=== PATIENT | female | born 1960 | race Two or more races ===

== ENCOUNTER 2021-03-24 08:45 | Outpatient (REF) | payer OTHER, SELFPAY ==
--- NOTE | ~2021-03-24 | US_ITS ---
EXAMINATION: US THYROID CLINICAL INFORMATION: Nontoxic multinodular goiter. Follow up nodules. COMPARISON: None TECHNIQUE: Linear transducer grayscale and color Doppler examination with attention to the region of the thyroid. FINDINGS: SIZE: Measurements of the thyroid lobes and nodules are given in sagittal, anteroposterior and transverse dimensions respectively. Right Thyroid Lobe: 4.2 x 1.9 x 1.5 cm, volume 6.3 mL. Previously it measured 4.8 x 1.9 x 1.5 cm and volume 7.3 mL. Parenchyma: The gland echotexture is homogeneous. Thyroid vascularity is normal. Left Thyroid Lobe: 4.3 x 1.7 x 1.4 cm, volume 5.4 mL. Previously it measured 4.7 x 1.7 x 1.5 cm and volume 6.2 mL. Parenchyma: The gland echotexture is homogeneous. Thyroid vascularity is normal. Isthmus: 0.2 cm in maximum AP dimension. Estimated total number of nodules greater than or equal to 1 cm: 2. Conference Assistant nodules are described as follows: 1. Location: Upper pole. Previously measured 1.1 x 0.5 x 0.6 cm and volume 0.17 mL. Size: 1.1 x 0.6 x 0.4 cm, volume 0.15 mL. Nodule characteristics: Composition: Solid (2). Echogenicity: Hypoechoic Shape: Wider Margins: Smooth (0). Echogenic Foci: None (0). ACR TI-RADS total points: 4 ACR TI-RADS category: 4 2. Location: Right midpole. Size: 0.4 x 0.5 x 0.3 cm, volume 0.04 mL. Previously it measured 0.4 x 0.3 x 0.5 cm and volume 0.03 mL. Nodule characteristics: Composition: Solid (2). Echogenicity: Isoechoic (1). Shape: Wider Margins: Smooth (0). Echogenic Foci: None (0). ACR TI-RADS total points: 3 ACR TI-RADS category: 3 3. Location: Right midpole. Size: 0.4 x 0.3 x 0.3 cm, volume 0.02 mL. Nodule characteristics: Composition: Solid/almost completely solid (2). Echogenicity: Isoechoic (1). Shape: Wider Margins: Smooth (0). Echogenic Foci: None (0). ACR TI-RADS total points: 3 ACR TI-RADS category: 3 4. Location: Right lower pole. Size: 0.4 x 0.4 x 0.3 cm, volume 0.03 mL. Previously it measured 0.5 x 0.3 x 0.3 cm and volume 0.02 mL. Nodule characteristics: Composition: mostly solid (2). Echogenicity: Isoechoic (1). Shape: Wider Margins: Smooth (0). Echogenic Foci: None (0). ACR TI-RADS total points: 3 ACR TI-RADS category: 3 There is a small nodule in the left midpole measuring 1.5 cm with total points of 3 and TI-RADS category 3. NODES: No lymphadenopathy is seen in the tissue surrounding the thyroid gland. US/US thyroid IMPRESSION: Stable multinodular goiter with 1 cm and plus nodules are stable. Continued follow-up is recommended. ACR TI-RADS RECOMMENDATION REFERENCE: Ultrasound-guided fine-needle aspiration, followup ultrasound, no further follow up. * TR1 (0 point) and TR 2 (2 points): No FNA or follow up * TR3 (3 points): FNA if more than or equal to 2.5 cm in maximum dimension, followup ultrasound in 1, 3 and 5 years if 1.5 to 2.4 cm in maximum dimension. * TR4 (4-6 points): FNA if more than or equal to 1.5 cm in maximum dimension, followup ultrasound in 1, 2, 3 and 5 years if 1 to 1.4 cm in maximum dimension. * TR5 (more than or equal to 7 points): FNA if more than or equal to 1 cm in maximum dimension, followup ultrasound every year for 5 years if 0.5 to 0.9 cm in maximum dimension. * TR3, TR4 or TR5 nodules that are below the size threshold for follow up receive no follow up.
== END 2021-03-24 08:46 | disposition home or self-care (01) ==
LOC: HO.US 08:45
PROVIDERS: PCP Internal Medicine; Visit Provider Internal Medicine Endocrinology, Diabetes & Metabolism
DX: E04.2 Nontoxic multinodular goiter (principal)
CPT/HCPCS: 76536

== ENCOUNTER 2021-04-27 08:48 | Outpatient (REF) | payer OTHER, SELFPAY ==
--- NOTE | ~2021-04-27 | MM_ITS ---
EXAMINATION: MM SCREENING DIGITAL BREAST TOMOSYNTHESIS, BILATERAL CLINICAL INFORMATION: Screening. Asymptomatic. The lifetime risk of breast cancer based on the Tyrer-Cuzick Model is 6.4%. COMPARISON: Mammography: July 13, 2017 TECHNIQUE: Digital breast tomosynthesis is performed in both the craniocaudal and mediolateral oblique views along with computer-aided detection (CAD). Synthesized 2D images are generated from the tomosynthesis. FINDINGS: There are scattered areas of fibroglandular density (ACR BI-RADS breast composition Category b). There are no significant masses, abnormal calcifications, or other abnormalities. MM/MM tomosynthesis screening BI IMPRESSION: There are no significant changes from prior study. ASSESSMENT: BI-RADS 1: Negative RECOMMENDATION: Routine annual mammography screening. This patient's information was entered into a reminder system with a target due date for their next mammogram.
== END 2021-04-27 08:49 | disposition home or self-care (01) ==
LOC: HO.MAMMO 08:48
PROVIDERS: PCP Internal Medicine; Visit Provider Internal Medicine
DX: Z12.31 Encounter for screening mammogram for malignant neoplasm of breast (principal)
CPT/HCPCS: 77063; 77067

== ENCOUNTER → 2021-05-11 08:40 | Outpatient (BNVA) | payer OTHER, SELFPAY | PROVIDERS: PCP Internal Medicine; Visit Provider Anesthesiology | DX: M47.814 Spondylosis without myelopathy or radiculopathy, thoracic region (principal); M81.0 Age-related osteoporosis without current pathological fracture; S22.050D Wedge compression fracture of T5-T6 vertebra, subsequent encounter for fracture with routine healing | CPT/HCPCS: 99202 ==

== ENCOUNTER 2021-05-21 08:11 | Outpatient (REF) | payer OTHER, SELFPAY ==
--- NOTE | ~2021-05-21 | MM_ITS ---
EXAMINATION: BONE DENSITOMETRY CLINICAL INDICATION: Wedge compression fracture of T5-T6 vertebra. COMPARISON: This is the patient's baseline examination. TECHNIQUE: Using a [employer] DXA System (software version: 13.1) manufactured by [employer], dual-energy x-ray absorptiometry was performed of the lumbar spine and left hip. The images are of good technical quality. Summary results are attached. FINDINGS: AP SPINE L1-L4: BMD 0.572 g/cm2, Z-score -3.4, T-score -5.1, osteoporosis. LEFT FEMUR, NECK: BMD 0.532 g/cm2, Z-score -2.1, T-score -3.6, osteoporosis. LEFT FEMUR, TOTAL: BMD 0.500 g/cm2, Z-score -2.7, T-score -4.0, osteoporosis. IDENTIFIED RISK FACTORS: Early menopause, family history (parent hip fracture), history of fracture (adult), secondary osteoporosis. HISTORY OF FRACTURE: Spine by patient history. MEDICATIONS: Vitamin D. MM/XR DEXA axial skeleton IMPRESSION: 1. DIAGNOSIS: Osteoporosis based on the lowest T-score value of -5.1 in the lumbar spine applying World Health Organization criteria. 2. 10-YEAR FRACTURE RISK PREDICTION, FRAX: Major osteoporotic fracture (clinical spine, forearm, hip or shoulder) 29.1%. Hip fracture 8.3%. 3. Treatment Recommendations: NOF guidelines recommend consideration for treatment in postmenopausal women and men age 50 and older presenting with the following: -A hip or vertebral (clinical or morphometric) fracture. -T-score less than or equal to -2.5 at the femoral neck or spine after appropriate evaluation to exclude secondary causes. -Low bone mass at the hip or spine and a 10-year fracture probability by FRAX of greater than or equal to 3% for hip fracture or greater than or equal to 20% for major osteoporotic fracture based on the [place] adapted WHO algorithm. 4. Other Recommendations: All treatment decisions require clinical judgment and consideration of individual patient factors, including patient preferences, comorbidities, previous drug use, risk factors not captured in the FRAX model (e.g. frailty, falls, vitamin D deficiency, increased bone turnover, interval significant decline in bone density) and possible under or overestimation of fracture risk by FRAX. Additional medical evaluation for secondary cause of low bone mineral density may be appropriate. FUTURE SCAN RECOMMENDATION: People with diagnosed cases of osteoporosis or at high risk for fracture should have regular bone mineral density tests. For patients eligible for Medicare, routine testing is allowed once every 2 years. The testing frequency can be increased to one year for patients who have rapidly progressing disease, those who are receiving or discontinuing medical therapy to restore bone mass, or have additional risk factors.
== END 2021-05-21 08:12 | disposition home or self-care (01) ==
LOC: HO.MAMMO 08:11
PROVIDERS: Visit Provider Advanced Practice Midwife
DX: Z13.820 Encounter for screening for osteoporosis (principal); Z78.0 Asymptomatic menopausal state; S22.050D Wedge compression fracture of T5-T6 vertebra, subsequent encounter for fracture with routine healing
CPT/HCPCS: 77080

== ENCOUNTER 2021-05-21 09:00 | Outpatient (RCR) | payer OTHER, SELFPAY ==
--- NOTE | 2021-04-30 11:54 | MHC.PT.EP ---
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 Jonathan is a pleasant 60 yo female who arrives with T6 compression fracture and resultant muscular length and strength and imbalances. Impairments include decreased shoudler and thoracic spine ROM, decreased core and shoulder strength, altered posture and positioning, increased soft tissue tenderness. Functional limitations include decreased tolerance to lifting, bending, reaching, twisting and carrying. She also reports decreased ability to perform homemaking and self care tasks, decreased abiltiy to perform community and recreational tasks. She is a good candidate for PT to address deficits and return to PLOF. Frequency and Duration: The patient will be seen 2 x week for 4 weeks Short Term Goals: Initiate HEP and promote self management of symptoms in 2 visits Nursing Home Goals: Full, pain free thoracic ROM in 5 weeks Full UE strength, pain free in 5 weeks To perform computer and work tasks without restriction and pain no greater than 2/10 in [address] at minimum of 5# into cabinet at shoulder height in 5 weeks [ End ] Treatment Plan: Modalities to reduce pain, spasms and effusion. Manual therapy to restore motion and function. Therapeutic exercise to improve strength and flexibility. Neuromuscular re-education for posture and balance. Therapeutic activities to return to functional activities of daily living. Electronically signed by: Brooke Quiroz PT Please sign and return to therapist. Thank you for your referral.
--- NOTE | 2021-06-19 11:49 | MHC.PT.DC ---
[facility] [place] Office [place] Office [place] Office [address]ilio Bender [address] [phone] F: [phone] F: [phone] F: [phone] F: [phone] Physical Therapy Discharge Report Diagnosis: COMPRESSION FRACTURE OF T6 Date of Surgery: NA Date of Evaluation: 04/28/21 Date of Discharge: 05/27/21 Treatments to Date: 7 Cancellations to Date: 0 No Shows to Date: 0 Discharge Status: Discharge Summary: Sunny had progressed well with PT and was reporting decrease in pain and improved function. She cancelled her last several visits due to unrelated issues but has a home program to continue with until she is ready to return to therapy. Electronically signed by: Shelbie Eduardo PT, DPT Please sign and return to therapist. Thank you for your referral.
== END 2021-06-19 11:52 | disposition home or self-care (01) ==
LOC: HO.PT 09:00
PROVIDERS: PCP Internal Medicine; Visit Provider Internal Medicine
DX: S22.050D Wedge compression fracture of T5-T6 vertebra, subsequent encounter for fracture with routine healing (principal)
CPT/HCPCS: 97110; 97112; 97161; 97162; 97530

== ENCOUNTER 2021-05-25 09:07 | Outpatient (REF) | payer OTHER, SELFPAY ==
--- NOTE | ~2021-05-25 | MR_ITS ---
EXAMINATION: MR THORACIC SPINE WITHOUT CONTRAST CLINICAL INFORMATION: Spondylosis without myelopathy or radiculopathy. COMPARISON: No relevant prior imaging. TECHNIQUE: MRI of the thoracic spine was obtained using routine sequences without contrast. FINDINGS: There is some bone marrow edema associated with a compression fracture of the T5 vertebral body, which is uncertain on the basis of this examination. There is impaction upper endplate with 100% loss of vertebral body height anteriorly causing focal kyphotic angulation of the midthoracic spine. There is also buckling with retropulsion of posterior cortex at this level causing abutment and flattening along the ventral surface of the thoracic cord. Although there is no overt cord compression there are questionable intramedullary signal changes within the cord at this level. Although only partially included within the [id number] of this examination there is also a chronic appearing upper L3 endplate disc herniation. Vertebral body heights are otherwise preserved. There is disc desiccation at multiple levels without substantial loss of intervertebral disc height. Limited visualization of intrathoracic anatomy reveals no abnormal finding. No paraspinal soft tissue mass or collection. MR/MR thoracic spine wo con IMPRESSION: There is bone marrow edema associated with a compression fracture of the T5 vertebral body. The age of this fracture is difficult to accurately determine on the basis of this examination. There is 100% vertebral height loss anteriorly and buckling with retropulsion of posterior cortex causing abutment on the ventral surface of the thoracic cord. Although there is no overt cord compression, there are questionable intramedullary signal changes within the ventral cord at this level.
== END 2021-05-25 09:08 | disposition home or self-care (01) ==
LOC: HO.MRI 09:07
PROVIDERS: Visit Provider Anesthesiology
DX: M47.814 Spondylosis without myelopathy or radiculopathy, thoracic region (principal); S22.050A Wedge compression fracture of T5-T6 vertebra, initial encounter for closed fracture; M81.0 Age-related osteoporosis without current pathological fracture
CPT/HCPCS: 72146

== ENCOUNTER → 2021-06-01 08:47 | Outpatient (BNVA) | payer OTHER, SELFPAY | PROVIDERS: PCP Internal Medicine; Visit Provider Anesthesiology | DX: S22.050A Wedge compression fracture of T5-T6 vertebra, initial encounter for closed fracture (principal); X58.XXXA Exposure to other specified factors, initial encounter; Y93.9 Activity, unspecified; Y92.9 Unspecified place or not applicable; Y99.8 Other external cause status; M81.0 Age-related osteoporosis without current pathological fracture; M47.814 Spondylosis without myelopathy or radiculopathy, thoracic region | CPT/HCPCS: 99212 ==

== ENCOUNTER 2021-06-17 07:40 | Outpatient (REF) | payer OTHER, SELFPAY ==
[2021-06-17 09:42] LABS: Alanine Aminotransferase 12 U/L (0-31); Albumin Level 4.4 g/dL (3.5-5.0); Alkaline Phosphatase 105 U/L (39-117); Anion Gap 10 (12-20); Aspartate Amino Transferase 26 U/L (5-31); Bilirubin Total 0.3 mg/dL (0.0-1.0); Blood Urea Nitrogen 11 mg/dL (9-16); Calcium 9.4 mg/dL (8.4-10.2); Carbon Dioxide 28 mmol/L (22-29); Chloride 105 mmol/L (96-108); Estimated Glomerular Filt Rate > 60; Glucose Random 82 mg/dL (60-115); Phosphorus 4.2 mg/dL (2.7-4.5); Potassium 4.2 mmol/L (3.3-5.1); Sodium 139 mmol/L (135-145); Total Protein 7.4 g/dL (6.5-8.0)
[2021-06-17 09:56] LABS: Free T4 (Free Thyroxine) 1.09 ng/dL (0.71-1.85); Thyroid Stimulating Hormone 0.79 uIU/mL (0.32-4.0); Vitamin D 25-OH Total 19.5 ng/mL (>30)
[2021-06-18 14:30] LABS: Prot Elec - Albumin 4.4 g/dL (3.8-4.8); Prot Elec - Alpha1 0.4 g/dL (0.2-0.3); Prot Elec - Alpha2 0.8 g/dL (0.5-0.9); Prot Elec - Beta 1 0.5 g/dL (0.4-0.6); Prot Elec - Beta 2 0.4 g/dL (0.2-0.5); Prot Elec - Gamma 1.2 g/dL (0.8-1.7); Prot Elec - Total Protein 7.6 g/dL (6.1-8.1)
[2021-06-18 14:51] LABS: Calcium, Ionized 5.1 mg/dL (4.8-5.6)
[2021-06-18 15:41] LABS: Calcium (PTHI) 9.6 mg/dL (8.6-10.4); PTHI 39 pg/mL (14-64)
[2021-06-19 10:22] LABS: Alkaline Phosphatase Bone 26.2 mcg/L (5.6-29.0)
== END 2021-06-17 07:41 | disposition home or self-care (01) ==
LOC: HO.LAB 07:40
PROVIDERS: PCP Internal Medicine; Visit Provider Internal Medicine
DX: E04.2 Nontoxic multinodular goiter (principal); M81.0 Age-related osteoporosis without current pathological fracture; E55.9 Vitamin D deficiency, unspecified
CPT/HCPCS: 36415; 80053; 82306; 82330; 83970; 84075; 84100; 84165; 84439; 84443; 99212

== ENCOUNTER 2021-06-24 09:05 | Outpatient (REF) | payer OTHER, SELFPAY ==
[2021-06-24 10:20] LABS: Creatinine, mg/dL 34.39
[2021-06-24 10:58] LABS: Creatinine, 24Hr Urine 0.9 G/Day (1.0-2.0); Total Volume 24 Hour Urine 2525 mL
[2021-06-28 18:11] LABS: Calcium, 24 Hr Urine 53 mg/24 h; Calcium/Creatinine Ratio 55 mg/g creat (30-275); Creatinine 24Hr Urine 0.96 g/24 h (0.50-2.15)
== END 2021-06-24 09:06 | disposition home or self-care (01) ==
LOC: HO.LNP 09:05
PROVIDERS: Visit Provider Internal Medicine
DX: M81.0 Age-related osteoporosis without current pathological fracture (principal)
CPT/HCPCS: 82340; 82570

== ENCOUNTER → 2021-08-10 08:46 | Outpatient (BNVA) | payer OTHER, SELFPAY | PROVIDERS: PCP Internal Medicine; Visit Provider Internal Medicine ==

== ENCOUNTER 2021-11-09 12:12 | Outpatient (REF) | payer OTHER, SELFPAY ==
[2021-11-09 13:39] LABS: Hematocrit 37.4 % (37.0-47.0); Hemoglobin 12.5 g/dl (12.0-16.0); Mean Corpuscular HGB Conc 33.4 g/dl (31.0-35.0); Mean Corpuscular Hemoglobin 30.3 pg (27.0-33.0); Mean Corpuscular Volume 90.8 fL (80.0-98.0); Mean Platelet Volume 10.8 fL (9.4-12.3); Platelet Count 306 X10*3/uL (160-400); Red Blood Count 4.12 X10*6/uL (4.20-5.50); Red Cell Distribution Width 13.1 % (11.0-16.0); White Blood Count 5.1 X10*3/uL (4.8-10.8)
[2021-11-09 14:10] LABS: Alanine Aminotransferase 14 U/L (0-31); Albumin Level 4.4 g/dL (3.5-5.0); Alkaline Phosphatase 83 U/L (39-117); Aspartate Amino Transferase 19 U/L (5-31); Bilirubin Direct 0.2 mg/dL (0.0-0.5); Bilirubin Total 0.4 mg/dL (0.0-1.0); Lipase 18 U/L (8-78); Total Protein 7.5 g/dL (6.5-8.0)
[2021-11-09 14:26] LABS: Vitamin D 25-OH Total 15.8 ng/mL (>30)
[2021-11-10 13:27] LABS: Calcium (PTHI) 9.3 mg/dL (8.6-10.4); PTHI 55 pg/mL (16-77)
[2021-11-12 14:51] LABS: Immunoglobulin A 306 mg/dL (47-310)
[2021-11-12 21:17] LABS: Transglutaminase IgA <1.0 U/mL
== END 2021-11-09 12:13 | disposition home or self-care (01) ==
LOC: HO.LAB 12:12
PROVIDERS: Absent Provider Internal Medicine; PCP Internal Medicine; Visit Provider Internal Medicine Gastroenterology
DX: E55.9 Vitamin D deficiency, unspecified (principal); R10.84 Generalized abdominal pain
CPT/HCPCS: 36415; 80076; 82306; 82784; 83690; 83970; 85027; 86364

== ENCOUNTER 2021-12-01 08:24 | Outpatient (REF) | payer OTHER, SELFPAY ==
--- NOTE | ~2021-12-01 | US_ITS ---
EXAMINATION: US ABDOMEN COMPLETE CLINICAL INFORMATION: Abdominal pain. COMPARISON: Ultrasound abdomen complete 03/01/2018. TECHNIQUE: Real-time imaging of the abdominal viscera. FINDINGS: PANCREAS: Normal. ABDOMINAL AORTA: The proximal, mid, and distal segments are normal in caliber. INFERIOR VENA CAVA: Visualized portions are normal. LIVER: Normal. The liver is normal in size. The liver contour is normal. Parenchymal echogenicity is normal. No focal hepatic lesion. There is no intrahepatic biliary duct dilatation seen. GALLBLADDER: The gallbladder is physiologically distended without evidence of stones, sludge, polyps, wall thickening or pericholecystic fluid. COMMON BILE DUCT: Normal in caliber measuring 0.5 cm in diameter. RIGHT KIDNEY: There is an anechoic 1.9 x 1.6 x 1.8 cm simple cyst at the lower pole. No hydronephrosis or renal calculi. The kidney measures 9.7 cm in maximum dimension. LEFT KIDNEY: Normal. No hydronephrosis. No renal calculi or focal parenchymal lesions. The kidney measures 10.3 cm in maximum dimension. SPLEEN: Normal. The spleen measures 8.0 cm in maximum dimension. FREE FLUID: None. US/US abdomen complete IMPRESSION: Right simple renal cyst, otherwise essentially unremarkable abdominal ultrasound.
== END 2021-12-01 08:25 | disposition home or self-care (01) ==
LOC: HO.US 08:24
PROVIDERS: Visit Provider Internal Medicine
DX: R10.84 Generalized abdominal pain (principal)
CPT/HCPCS: 76700

== ENCOUNTER 2022-01-19 14:18 | Emergency (ER) | payer OTHER, SELFPAY ==
--- NOTE | ~2022-01-19 | CT_ITS ---
EXAMINATION: CT ABDOMEN AND PELVIS WITHOUT CONTRAST CLINICAL INFORMATION: Right lower quadrant/suprapubic tender to touch. History of constipation and nausea. COMPARISON: Ultrasound abdomen 12/01/2021. TECHNIQUE: Multidetector volumetric imaging was performed from the superior aspect of the liver through the pubic symphysis. Sagittal and coronal reformatted images were obtained on the technologist's workstation. This CT examination was performed using dose optimization techniques as appropriate, variously including the following: *Automated exposure control *Adjustment of mA and/or kV according to patient size (this includes techniques or standardized protocols for targeted exams where dose is matched to indication/reason for exam; i.e. extremities or head) *Use of iterative reconstruction technique DLP: 277 mGy-cm FINDINGS: LUNG BASES: There is bibasilar atelectasis. Heart size is normal. LIVER, GALLBLADDER, AND BILIARY TREE: The liver is normal in size, shape, and attenuation. No focal hepatic lesion or biliary ductal dilatation is present. The gallbladder is unremarkable with no evidence of radiopaque gallstones, gallbladder wall thickening, or obvious pericholecystic inflammatory changes. PANCREAS: Unremarkable. SPLEEN: Unremarkable. ADRENAL GLANDS: Unremarkable. KIDNEYS AND URETERS: The kidneys are normal in size, shape, and attenuation. No hydronephrosis, hydroureter, or calculi seen. No perinephric stranding. There is a 1.7 cm hypodensity lower pole right hepatic lobe BLADDER: The bladder is totally decompressed. GASTROINTESTINAL TRACT: There is scattered stool, diverticuli and gas seen throughout the colon without significant distention. The small bowel loops are normal caliber. Appendix is not visualized. No free air or free fluid seen. ABDOMINAL WALL: No significant hernia is appreciated. LYMPH NODES: Normal. VASCULAR: Unremarkable. PELVIC VISCERA: The uterus is small and retroverted. No focal adnexal lesion seen. No abnormal pelvic or inguinal lymph nodes. There is mild sigmoid wall thickening is likely scattered diverticuli OSSEOUS STRUCTURES: Mild superior endplate deformities L4, L3 vertebra. There is mild osteopenia.. CT/CT abdomen pelvis wo con IMPRESSION: Mild constipation. No obstruction. Appendix is not seen with certainty. No radiopaque urolith or hydronephrosis. Fleischner guidelines were followed.
[2022-01-19 14:28] VITALS: BP 136/73; PULSE 72; RESP 19; TEMP 36.9; O2SAT 97; BMI 19.8
[2022-01-19 14:46] LABS: Basophils Percent Auto 0.5 % (0-2); Eosinophils Absolute Auto 0.1 X10*3/uL (0.0-0.4); Eosinophils Percent Auto 1.5 % (0-4); Hematocrit 35.3 % (37.0-47.0); Hemoglobin 11.9 g/dl (12.0-16.0); Imm Gran Abs Auto 0.02 X10*3/uL (0.00-0.03); Imm Gran Pct Auto 0.2 % (0.0-0.4); Lymphocytes Absolute Auto 1.9 X10*3/uL (1.2-4.9); Lymphocytes Percent Auto 22.4 % (20-40); MANUAL DIFF FLAG NO; Mean Corpuscular HGB Conc 33.7 g/dl (31.0-35.0); Mean Corpuscular Hemoglobin 30.2 pg (27.0-33.0); Mean Corpuscular Volume 89.6 fL (80.0-98.0); Mean Platelet Volume 10.5 fL (9.4-12.3); Monocytes Absolute Auto 0.5 X10*3/uL (0.1-1.2); Neutrophils Absolute Auto 5.7 x10*3/uL (2.0-8.3); Neutrophils Percent Auto 69.4 % (45-73); Platelet Count 260 X10*3/uL (160-400); Red Blood Count 3.94 X10*6/uL (4.20-5.50); Red Cell Distribution Width 11.9 % (11.0-16.0); White Blood Count 8.3 X10*3/uL (4.8-10.8)
[2022-01-19 14:48] LABS: Appearance Urine HAZY; Color Urine STRAW; Glucose Urine UA NEG (NEG); Leukocyte Esterase Urine NEG (NEG); Nitrite Urine NEG (NEG); Specific Gravity - Urine <= 1.005 (1.005-1.025); UACC Culture Trigger NO; Urine Blood 3+ (NEG); Urine Ketones NEG (NEG); Urine Protein NEG (NEG-TRACE)
[2022-01-19 14:54] LABS: Renal Epithelial Cells Urine TRACE /LPF; Squamous Epithelial Cell Urine TRACE /LPF; WBC Urine 0 /HPF (0-4)
[2022-01-19 15:01] LABS: Anion Gap 11 (12-20); Blood Urea Nitrogen 20 mg/dL (9-16); Calcium 8.9 mg/dL (8.4-10.2); Carbon Dioxide 24 mmol/L (22-29); Chloride 106 mmol/L (96-108); Creatinine Clr Calc Pharmacy 46.8; Estimated Glomerular Filt Rate 59; Glucose Random 97 mg/dL (60-115); Potassium 4.1 mmol/L (3.3-5.1); Sodium 137 mmol/L (135-145)
[2022-01-19 21:34] LABS: Alanine Aminotransferase 9 U/L (0-31); Albumin Level 4.2 g/dL (3.5-5.0); Alkaline Phosphatase 106 U/L (39-117); Aspartate Amino Transferase 17 U/L (5-31); Bilirubin Direct < 0.2 mg/dL (0.0-0.5); Bilirubin Total 0.2 mg/dL (0.0-1.0); Lipase 19 U/L (8-78); Magnesium 2.1 mg/dL (1.6-2.6); Total Protein 7.2 g/dL (6.5-8.0)
--- NOTE | 2022-01-19 22:04 | ED.GENADULT ---
HPI - General Adult General Chief complaint: General Medical Stated complaint: low back pain, abd pain, leg pain Time Seen by Provider: 01/19/22 20:13 Source: patient Mode of arrival: ambulatory History of Present Illness HPI narrative: 61-year-old female with no significant past medical history presenting to the ED complaining of bilateral low back pain radiating to abdomen and down left lower extremity x1 week. Also reports nausea & constipation without BM x2 days, and decreased flatus. Denies fever, chills, vomiting, diarrhea, numbness, tingling, weakness, urinary incontinence/retention, back injury/trauma or fall Onset (ago): week(s) Related Data Home Medications Medication Instructions Recorded Confirmed acetaminophen 325 mg tablet 325 mg PO QID PRN 05/11/21 08/10/21 loratadine 10 mg tablet (Claritin) 10 mg PO DAILY PRN 08/10/21 08/10/21 pantoprazole 20 mg tablet,delayed 20 mg PO DAILY PRN 08/10/21 08/10/21 release Previous Rx's Medication Instructions Recorded calcium cit 250 mg-ergocalciferol 1 tab PO DAILY 30 days #30 tabs 08/10/21 (vit D2) 2.5 mcg (100 unit) tablet (Oskar-Citrate) cholecalciferol (vitamin D3) 1,250 1,250 mcg PO QWEEK 8 weeks #8 caps 08/10/21 mcg (50,000 unit) capsule cholecalciferol (vitamin D3) 50 50 mcg PO DAILY 30 days #30 caps 08/10/21 mcg (2,000 unit) capsule acetaminophen 500 mg tablet 500 mg PO Q6H PRN fever or pain 01/19/22 (Tylenol Extra Strength) #14 tabs cyclobenzaprine 5 mg tablet 5 mg PO Q8H PRN pain (scale score 01/19/22 7-10) 5 days #14 tabs lidocaine 5 % topical patch 1 patch topical DAILY PRN pain #30 01/19/22 (Lidoderm) ea naproxen 500 mg tablet 500 mg PO BID PRN pain 10 days #20 01/19/22 tabs polyethylene glycol 3350 17 gram 17 g PO DAILY PRN constipation 01/19/22 oral powder packet (Miralax) #100 ea Allergies Allergy/AdvReac Type Severity Reaction Status Date / Time No Known Allergies Allergy Verified 08/10/21 11:09 Review of Systems Review of Systems: Constitutional: No Fever, No Chills, No Fatigue, No Malaise ENT/Mouth: No Ear Pain, No Nasal Congestion, No sore throat, No Rhinorrhea, No Swallowing Difficulty Eyes: No Eye Pain, No Swelling, No Redness Cardiovascular: No Chest Pain, No SOB, No Edema, No Palpitations Respiratory: No Cough, No Sputum, No Dyspnea Gastrointestinal: + Nausea, No Vomiting, No Diarrhea, + Constipation, + Abdominal pain Genitourinary: No Dysuria, No Urinary Frequency, No Hematuria, No Urinary Incontinence/retention, +Flank Pain, No Urinary Flow Changes, No Hesitancy Musculoskeletal: + joint pain, No Myalgias, No Joint Swelling Skin: No Skin Lesions, No rash Neuro: No Weakness, No Numbness, No Paresthesias, No Dizziness, No Headache Yes all other systems are reviewed and are negative [facility] Past Medical History Attestation statement: The following information was validated with the patient. Medical History Spondylosis of thoracic spine Surgical History Hx of section Family History Family History Father Pulmonary disease Mother No known health problems Fracture of bone due to accidental fall Social History Social History Alcohol intake: current Alcohol intake frequency: does not drink Patient Tobacco Use Status: Never used Tobacco Advance Directives: No Physical Exam ED Vital Signs: Vital Signs - 24 hr 01/19/22 14:28 Temperature 98.4 F Pulse Rate 72 Respiratory Rate 19 Blood Pressure 136/73 Pulse Oximetry 97 Oxygen Delivery Method Room Air BMI result Body Mass Index 19.8 Const General: cooperative, healthy appearing, no acute distress, alert and awake Orientation/consciousness: patient oriented x3 Limitations: no limitations HENMT Head: Yes normal to inspection and Yes atraumatic Ears: hearing grossly normal bilaterally General nose exam: Normal external nose present Face and sinus: Yes normal facial exam Eyes General: appearance normal, both eyes and all related structures EOM: EOMs intact bilaterally Neck Neck: Yes normal visual inspection and Yes no meningeal signs Resp Effort & Inspection: normal respiratory effort and no respiratory distress Auscultation: clear to auscultation bilaterally Cardio Rate: regular rate Heart sounds: S1 normal heart sound present and S2 normal heart sound present GI Inspection: Yes normal to inspection Palpation (GI): Soft to palpation, Tenderness to palpation present (GI) in the RLQ; with no rebound tenderness, no guarding and not rigid General: Yes no CVA tenderness Back/Spine/Pelvis Other: No midline thoracic/lumbar spinous tenderness/step-off or deformity. + bilateral lower lumbar MSK/upper buttock tenderness to palpation reproducing subjective complaint Back: no CVA tenderness Skin Rashes: no rashes Wounds: no wounds Neuro Other: Strength intact throughout. No saddle anesthesia. Sensation intact to light touch. Neurovascular intact distally General: patient oriented x3, gait normal, tone normal, moves all extremities, no meningeal signs, no focal motor deficits and CN's II-XI intact bilaterally Gait exam (Neuro): Normal gait present Motor exam (neuro): 5/5 motor strength present throughout Extrem General: Yes normal to inspection, Yes no pedal edema and Yes no calf tenderness Course Course Course Narrative: This patient was evaluated during a time of global shortage of iodinated contrast media. Based on guidance from [employer], best practices, and local institutional approaches an alternative path for evaluating and managing the patient have been employed in order to provide optimal care during this shortage. -2224--no leukocytosis. H&H stable. BUN mildly elevated, labs otherwise unremarkable -UA with RBCs/not infected CT abdomen pelvis wo con IMPRESSION: Mild constipation. No obstruction. Appendix is not seen with certainty. ? No radiopaque urolith or hydronephrosis. ? Fleischner guidelines were followed. >> results discussed with patient with foreign language interpreter. Discussed this possibly could be appendicitis as is not seen with certainty on this noncontrast study. Of lower concern without leukocytosis/fever, however discussed worrisome signs and symptoms and strict return precautions and need to close follow-up with PCP/re-evaluation in a few days. Medical Decision Making MDM Narrative Medical decision making narrative: 61-year-old female with no significant past medical history presenting to the ED complaining of bilateral low back pain radiating to abdomen and down left lower extremity x1 week. Also reports nausea & constipation without BM x2 days, and decreased flatus. On exam vital signs stable, NAD, nontoxic appearing, abdomen soft with are acute tenderness, no rebound or guarding, bilateral MSK back tenderness also noted without red flag symptoms or midline spinous tenderness. Ambulating with steady gait. No CVA tenderness. Concern for constipation vs SBO vs appendicitis vs MSK back pain/strain/muscle spasming and sciatica vs UTI/pyelo or renal stone. Unlikely cauda equina/cord compression Plan: Labs, UA, CT abdomen/pelvis, re-evaluate Lab Data Result diagrams: 01/19/22 14:40 01/19/22 14:40 Labs: Lab Results 01/19/22 01/19/22 01/19/22 Range/Units 14:40 14:40 14:40 WBC 8.3 (4.8-10.8) X10*3/uL RBC 3.94 L (4.20-5.50) X10*6/uL Hgb 11.9 L (12.0-16.0) g/dl Hct 35.3 L (37.0-47.0) % MCV 89.6 (80.0-98.0) fL MCH 30.2 (27.0-33.0) pg MCHC 33.7 (31.0-35.0) g/dl RDW 11.9 (11.0-16.0) % Plt Count 260 (160-400) X10*3/uL MPV 10.5 (9.4-12.3) fL Immature Gran % (Auto) 0.2 (0.0-0.4) % Neut % (Auto) 69.4 (45-73) % Lymph % (Auto) 22.4 (20-40) % [place] % (Auto) 6.0 (2-11) % Eos % (Auto) 1.5 (0-4) % Baso % (Auto) 0.5 (0-2) % Lymph # (Auto) 1.9 (1.2-4.9) X10*3/uL [place] # (Auto) 0.5 (0.1-1.2) X10*3/uL Eos # (Auto) 0.1 (0.0-0.4) X10*3/uL Baso # (Auto) 0.0 (0.0-0.2) X10*3/uL Abs Immat Gran (auto) 0.02 (0.00-0.03) X10*3/uL Absolute Neuts (auto) 5.7 (2.0-8.3) x10*3/uL Absolute Nucleated RBC 0.000 (0.0-0.012) X10*3/uL Nucleated RBC % (auto) 0.0 (0.0-0.2) /100WBC Sodium 137 (135-145) mmol/L Potassium 4.1 (3.3-5.1) mmol/L Chloride 106 (96-108) mmol/L Carbon Dioxide 24 (22-29) mmol/L Anion Gap 11 L (12-20) BUN 20 H (9-16) mg/dL Creatinine 0.96 (0.5-1.4) mg/dL Estim Creat Clear Calc 46.8 Estimated GFR 59 Random Glucose 97 (60-115) mg/dL Calcium 8.9 (8.4-10.2) mg/dL Magnesium 2.1 (1.6-2.6) mg/dL Total Bilirubin 0.2 (0.0-1.0) mg/dL Direct Bilirubin < 0.2 (0.0-0.5) mg/dL AST 17 (5-31) U/L ALT 9 (0-31) U/L Alkaline Phosphatase 106 D (39-117) U/L Total Protein 7.2 (6.5-8.0) g/dL Albumin 4.2 (3.5-5.0) g/dL Lipase 19 (8-78) U/L Urine Color STRAW Urine Appearance HAZY Urine pH 7.0 (5.0-8.0) Ur Specific [place] <= 1.005 (1.005-1.025) Urine Protein NEG (NEG-TRACE) MG/DL Urine Glucose (UA) NEG (NEG) MG/DL Urine Ketones NEG (NEG) MG/DL Urine Blood 3+ H (NEG) Urine Nitrite NEG (NEG) Ur Leukocyte Esterase NEG (NEG) Urine RBC 5-9 H (0) /HPF Urine WBC 0 (0-4) /HPF Ur Squamous Epith Cells TRACE /LPF Ur Renal Epithelial Cell TRACE /LPF Urine Bacteria NONE /LPF Discharge Plan Discharge Clinical Impression: Back pain, Constipation Patient Disposition: Home, Self-Care Instructions: Constipation (ED), Back Pain (ED) Additional Instructions: Your blood work was reassuring. Her urine does have blood in it, have this monitored by her primary care doctor. Your CT scan shows some constipation, does not visualized your appendix with certainty, so if you develop constant worsening pain, fever, nausea or vomiting please return to the emergency department Not having a bowel movement in 48 hours please return to the emergency department. You need to start taking laxatives, MiraLax as needed and increase fluid intake in her diet Your pain is likely musculoskeletal Flexeril is a muscle relaxer, take at night as it makes you drowsy, do not drive, drink alcohol, or operate machinery while taking it Naproxen as an anti-inflammatory / pain medication, take with food Lidoderm patches are numbing patches, apply to painful area In addition take Tylenol at home If symptoms persist or worsen, pain becomes unbearable, you developed urinary retention or incontinence, or weakness return to the ED Grant an?lisis de quoc fue tranquilizador. Grant orina tiene quoc, papa que grant m?dico de atenci?n primaria lo controle. Grant tomograf?a computarizada muestra algo de estre?imiento, no visualiza grant ap?ndice con certeza, por lo que si desarrolla un empeoramiento elijah del dolor, fiebre, n?useas o v?mitos, regrese al departamento de emergencias. Si no gonzáles defecado en 48 horas, regrese al departamento de emergencias. Debe comenzar a cora laxantes, MiraLax seg?n sea necesario y aumentar la ingesta de l?quidos en grant dieta. Es probable que grant dolor sea musculoesquel?tania Flexeril es un relajante muscular, t?hortensia por la noche ya que te adormece, no conduzcas, bebas alcohol ni operes maquinaria mientras lo deangelo. Naproxeno [place] medicamento antiinflamatorio/analg?sico, t?cruz con alimentos Los parches de Lidoderm son parches anest?sicos, se aplican en el ?luiz dolorida Adem?s imani Tylenol en casa Si los s?ntomas persisten o empeoran, el dolor se vuelve insoportable, desarroll? retenci?n urinaria o incontinencia, o debilidad, regrese al servicio de urgencias. Prescriptions: New acetaminophen [Tylenol Extra Strength] 500 mg tablet 500 mg PO Q6H PRN (Reason: fever or pain) Qty: 14 0RF lidocaine [Lidoderm] 5 % adhesive patch,medicated 1 patch topical DAILY MDD remove after 12 hours PRN (Reason: pain) Qty: 30 0RF Rx Instructions: leave on most painful area for up to 12 hrs cyclobenzaprine 5 mg tablet 5 mg PO Q8H PRN (Reason: pain (scale score 7-10)) 5 Days Qty: 14 0RF naproxen 500 mg tablet 500 mg PO BID PRN (Reason: pain) 10 Days Qty: 20 0RF polyethylene glycol 3350 [Miralax] 17 gram powder in packet 17 g PO DAILY PRN (Reason: constipation) Qty: 100 0RF No Action acetaminophen 325 mg tablet 325 mg PO QID PRN loratadine [Claritin] 10 mg tablet 10 mg PO DAILY PRN pantoprazole 20 mg tablet,delayed release (DR/EC) 20 mg PO DAILY PRN cholecalciferol (vitamin D3) 50 mcg (2,000 unit) capsule 50 mcg PO DAILY 30 Days Qty: 30 11RF cholecalciferol (vitamin D3) 1,250 mcg (50,000 unit) capsule 1,250 mcg PO QWEEK 56 Days Qty: 8 0RF Oskar-Citrate 250 mg-2.5 mcg (100 unit) tablet 1 tab PO DAILY 30 Days Qty: 30 11RF Referrals: Isabel Dunlap MD [Primary Care Provider] - 3 days Print Language: Montenegrin
--- NOTE | 2022-01-19 23:16 | PC.NURSE ---
Reviewed discharge instructions. Pt verbalized understanding.
== END 2022-01-19 23:17 | disposition home or self-care (01) ==
PROVIDERS: Physician Assistant; Emergency Provider Internal Medicine; PCP Internal Medicine
DX: M54.50 Low back pain, unspecified (principal); K59.00 Constipation, unspecified
CPT/HCPCS: 36415; 74176; 80048; 80076; 81001; 83690; 83735; 85025; 99284

== ENCOUNTER 2022-02-11 08:43 | Outpatient (REF) | payer OTHER, SELFPAY ==
[2022-02-11 10:00] LABS: Alanine Aminotransferase 13 U/L (0-31); Albumin Level 4.2 g/dL (3.5-5.0); Alkaline Phosphatase 102 U/L (39-117); Anion Gap 13 (12-20); Aspartate Amino Transferase 20 U/L (5-31); Bilirubin Total 0.4 mg/dL (0.0-1.0); Blood Urea Nitrogen 15 mg/dL (9-16); Carbon Dioxide 26 mmol/L (22-29); Chloride 108 mmol/L (96-108); Estimated Glomerular Filt Rate > 60; Glucose Random 86 mg/dL (60-115); Phosphorus 4.5 mg/dL (2.7-4.5); Potassium 4.6 mmol/L (3.3-5.1); Sodium 142 mmol/L (135-145); Total Protein 7.1 g/dL (6.5-8.0)
[2022-02-11 10:20] LABS: Vitamin D 25-OH Total 23.7 ng/mL (>30)
[2022-02-12 13:07] LABS: Calcium (PTHI) 9.8 mg/dL (8.6-10.4); PTHI 44 pg/mL (16-77)
== END 2022-02-11 08:44 | disposition home or self-care (01) ==
LOC: HO.LAB 08:43
PROVIDERS: PCP Internal Medicine; Visit Provider Internal Medicine
DX: M81.0 Age-related osteoporosis without current pathological fracture (principal); E55.9 Vitamin D deficiency, unspecified
CPT/HCPCS: 36415; 80053; 82306; 83970; 84100

== ENCOUNTER → 2022-02-15 09:36 | Outpatient (BNVA) | payer OTHER, SELFPAY | PROVIDERS: PCP Internal Medicine; Visit Provider Internal Medicine | DX: M81.0 Age-related osteoporosis without current pathological fracture (principal); E04.2 Nontoxic multinodular goiter; E55.9 Vitamin D deficiency, unspecified; Z79.899 Other long term (current) drug therapy | CPT/HCPCS: 99212 ==

== ENCOUNTER 2022-07-10 09:43 | Outpatient (REF) | payer OTHER, SELFPAY ==
[2022-07-10 11:52] LABS: Alanine Aminotransferase 15 U/L (0-31); Albumin Level 4.4 g/dL (3.5-5.0); Alkaline Phosphatase 81 U/L (39-117); Anion Gap 14 (12-20); Aspartate Amino Transferase 22 U/L (5-31); Blood Urea Nitrogen 14 mg/dL (9-16); Calcium 9.1 mg/dL (8.4-10.2); Carbon Dioxide 25 mmol/L (22-29); Chloride 105 mmol/L (96-108); Estimated Glomerular Filt Rate > 60; Free T4 (Free Thyroxine) 1.06 ng/dL (0.71-1.85); Glucose Random 82 mg/dL (60-115); Phosphorus 3.7 mg/dL (2.7-4.5); Potassium 4.3 mmol/L (3.3-5.1); Sodium 140 mmol/L (135-145); Total Protein 7.5 g/dL (6.5-8.0); Vitamin D 25-OH Total 31.6 ng/mL (>30)
[2022-07-10 12:13] LABS: Bilirubin Total 0.7 mg/dL (0.0-1.0)
[2022-07-12 18:54] LABS: Transglutaminase Ab IgG <1.0 U/mL
[2022-07-13 09:48] LABS: Calcium (PTHI) 9.3 mg/dL (8.6-10.4); PTHI 61 pg/mL (16-77)
[2022-07-15 14:29] LABS: Endomysial IgA Antibody Negative (Negative)
== END 2022-07-10 09:44 | disposition home or self-care (01) ==
LOC: HO.LAB 09:43
PROVIDERS: PCP Internal Medicine; Visit Provider Internal Medicine
DX: M81.0 Age-related osteoporosis without current pathological fracture (principal); E04.2 Nontoxic multinodular goiter; E55.9 Vitamin D deficiency, unspecified
CPT/HCPCS: 36415; 80053; 82306; 83970; 84100; 84439; 84443; 86231; 86364

== ENCOUNTER 2022-10-28 13:41 | Outpatient (REF) | payer OTHER, SELFPAY ==
[2022-10-28 15:05] LABS: Alanine Aminotransferase 11 U/L (0-31); Albumin Level 4.4 g/dL (3.5-5.0); Alkaline Phosphatase 76 U/L (39-117); Anion Gap 14 (12-20); Aspartate Amino Transferase 19 U/L (5-31); Bilirubin Total 0.7 mg/dL (0.0-1.0); Blood Urea Nitrogen 11 mg/dL (9-16); Calcium 9.7 mg/dL (8.4-10.2); Carbon Dioxide 27 mmol/L (22-29); Chloride 104 mmol/L (96-108); Estimated Glomerular Filt Rate > 60; Glucose Random 77 mg/dL (60-115); Phosphorus 3.8 mg/dL (2.7-4.5); Potassium 4.4 mmol/L (3.3-5.1); Sodium 141 mmol/L (135-145); Total Protein 7.4 g/dL (6.5-8.0)
[2022-10-28 15:17] LABS: Free T4 (Free Thyroxine) 1.15 ng/dL (0.71-1.85); Vitamin D 25-OH Total 34.5 ng/mL (>30)
[2022-10-29 16:23] LABS: Calcium (PTHI) 7.1 mg/dL (8.6-10.4); PTHI 59 pg/mL (16-77)
[2022-11-02 15:14] LABS: Alkaline Phosphatase Bone 16.7 mcg/L (5.6-29.0)
== END 2022-10-28 13:42 | disposition home or self-care (01) ==
LOC: HO.LAB 13:41
PROVIDERS: PCP Internal Medicine; Visit Provider Internal Medicine
DX: M81.0 Age-related osteoporosis without current pathological fracture (principal); E04.2 Nontoxic multinodular goiter; E55.9 Vitamin D deficiency, unspecified
CPT/HCPCS: 36415; 80053; 82306; 83970; 84075; 84100; 84439; 84443

== ENCOUNTER 2022-11-01 07:58 | Outpatient (REF) | payer OTHER, SELFPAY ==
[2022-11-01 14:25] LABS: Alanine Aminotransferase 11 U/L (0-31); Albumin Level 4.5 g/dL (3.5-5.0); Alkaline Phosphatase 67 U/L (39-117); Anion Gap 15 (12-20); Aspartate Amino Transferase 21 U/L (5-31); Bilirubin Total 0.4 mg/dL (0.0-1.0); Blood Urea Nitrogen 10 mg/dL (9-16); Calcium 9.4 mg/dL (8.4-10.2); Carbon Dioxide 24 mmol/L (22-29); Chloride 105 mmol/L (96-108); Estimated Glomerular Filt Rate > 60; Glucose Random 75 mg/dL (60-115); Phosphorus 3.9 mg/dL (2.7-4.5); Sodium 139 mmol/L (135-145); Total Protein 7.1 g/dL (6.5-8.0)
[2022-11-02 16:13] LABS: Calcium (PTHI) 9.4 mg/dL (8.6-10.4); PTHI 45 pg/mL (16-77)
== END 2022-11-01 07:59 | disposition home or self-care (01) ==
LOC: HO.LAB 07:58
PROVIDERS: PCP Internal Medicine; Visit Provider Internal Medicine
DX: E04.2 Nontoxic multinodular goiter (principal); M81.0 Age-related osteoporosis without current pathological fracture; E55.9 Vitamin D deficiency, unspecified
CPT/HCPCS: 36415; 80053; 82306; 83970; 84100; 99212

== ENCOUNTER 2022-11-23 10:16 | Outpatient (REF) | payer OTHER, SELFPAY ==
--- NOTE | ~2022-11-23 | US_ITS ---
EXAMINATION: US THYROID CLINICAL INFORMATION: Nontoxic multinodular goiter. COMPARISON: Thyroid ultrasound 03/24/2021 and 04/07/2020. Ultrasound-guided thyroid biopsy 03/22/2019. TECHNIQUE: Linear transducer grayscale and color Doppler examination with attention to the region of the thyroid. FINDINGS: SIZE: Measurements of the thyroid lobes and nodules are given in sagittal, anteroposterior and transverse dimensions respectively. Right Thyroid Lobe: 4.8 x 1.9 x 1.9 cm, volume 8.9 mL. Previously 4.2 x 1.9 x 1.5 cm, volume 6.3 mL. Parenchyma: The gland echotexture is homogeneous. Thyroid vascularity is normal. Left Thyroid Lobe: 4.4 x 1.7 x 1.5 cm, volume 6.0 mL. Previously 4.3 x 1.7 x 1.4 cm, volume 5.4 mL. Parenchyma: The gland echotexture is homogeneous. Thyroid vascularity is normal. Isthmus: 0.2 cm in maximum AP dimension. Previously 0.2 cm. Estimated total number of nodules greater than or equal to 1 cm: 2. Lead Dental Assistant nodules are described as follows: 1. Location: Right upper pole. Size: 1.2 x 0.6 x 0.7 cm, volume 0.3 mL. Previously: 1.1 x 0.6 x 0.4 cm, volume 0.2 mL. Nodule characteristics: Composition: Solid (2). Echogenicity: Hypoechoic (2). Shape: Not taller than wide (0). Margins: Smooth (0). Echogenic Foci: Punctate echogenic foci (3). ACR TI-RADS total points: 5 Previous: 4 ACR TI-RADS category: 7 Previous: 4 Significant change in size (>/= 20% in 2 dimensions and minimal increase of 2 mm or 50% or greater increase in volume): Yes Change in features: No Change in ACR TI-RADS risk category: No 2. Location: Right upper/mid pole. Size: 0.4 x 0.3 x 0.5 cm, volume 0.03 mL. Previously: 0.4 x 0.5 x 0.3 cm, volume 0.03 mL. Nodule characteristics: Composition: Mixed cystic and solid (1). Echogenicity: Hypoechoic (2). Shape: Not taller than wide (0). Margins: Smooth (0). Echogenic Foci: None (0). ACR TI-RADS total points: 3 Previous: 3 ACR TI-RADS category: 3 Previous: 3 Significant change in size (>/= 20% in 2 dimensions and minimal increase of 2 mm or 50% or greater increase in volume): No Change in features: Not when accounting for differences in stock shipper Change in ACR TI-RADS risk category: No 3. Location: Left mid pole. Size: 1.3 x 1.5 x 1.1 cm, volume 1.1 mL. Previously: 1.4 x 1.0 x 0.9 cm, volume 0.7 mL. Nodule characteristics: Composition: Solid/almost completely solid (2). Echogenicity: Isoechoic (1). Shape: Taller than wide (3). Margins: Smooth (0). Echogenic Foci: None (0). ACR TI-RADS total points: 6 Previous: 3 ACR TI-RADS category: 4 Previous: 3 Significant change in size (>/= 20% in 2 dimensions and minimal increase of 2 mm or 50% or greater increase in volume): Yes Change in features: Yes, now taller than wide Change in ACR TI-RADS risk category: Yes NODES: No lymphadenopathy is seen in the tissue surrounding the thyroid gland. US/US thyroid IMPRESSION: A 1.2 cm TR 5 right upper pole thyroid nodule demonstrates a new punctate echogenic focus and is increased in size from prior. This meets criteria for tissue sampling if not ready obtained. A 1.5 cm TR 4 left thyroid nodule is increased in size and increased TI-RADS category. This was previously sampled in 2019, recommend correlation with prior pathology. A subcentimeter TR 3 thyroid nodule does not meet criteria for follow-up. ACR TI-RADS RECOMMENDATION REFERENCE: Ultrasound-guided fine-needle aspiration, followup ultrasound, no further follow up. * TR1 (0 point) and TR2 (2 points): No FNA or follow up * TR3 (3 points): FNA if more than or equal to 2.5 cm in maximum dimension, followup ultrasound in 1, 3 and 5 years if 1.5 to 2.4 cm in maximum dimension. * TR4 (4-6 points): FNA if more than or equal to 1.5 cm in maximum dimension, followup ultrasound in 1, 2, 3 and 5 years if 1 to 1.4 cm in maximum dimension. * TR5 (more than or equal to 7 points): FNA if more than or equal to 1 cm in maximum dimension, followup ultrasound every year for 5 years if 0.5 to 0.9 cm in maximum dimension. * TR3, TR4 or TR5 nodules that are below the size threshold for follow up receive no follow up.
[2022-11-23 12:19] LABS: Creatinine, mg/dL 38.56
[2022-11-23 14:51] LABS: Creatinine, 24Hr Urine 0.9 G/Day (1.0-2.0); Total Volume 24 Hour Urine 2225 mL
[2022-11-25 16:08] LABS: Calcium, 24 Hr Urine 22 mg/24 h; Calcium/Creatinine Ratio 26 mg/g creat (30-275); Creatinine 24Hr Urine 0.85 g/24 h (0.50-2.15)
== END 2022-11-23 10:17 | disposition home or self-care (01) ==
LOC: HO.US 10:16
PROVIDERS: PCP Internal Medicine; Visit Provider Internal Medicine
DX: E04.2 Nontoxic multinodular goiter (principal); M81.0 Age-related osteoporosis without current pathological fracture
CPT/HCPCS: 76536; 82340; 82570

== ENCOUNTER 2023-12-15 10:18 | Outpatient (REF) | payer OTHER, SELFPAY ==
--- NOTE | ~2023-12-15 | MM_ITS ---
EXAMINATION: BONE DENSITOMETRY CLINICAL INDICATION: Age-related osteoporosis without current pathological fracture. COMPARISON: Baseline BD dated 05/21/2021. TECHNIQUE: Using a [employer] DXA System (software version: 13.1) manufactured by [employer], dual-energy x-ray absorptiometry was performed of the lumbar spine and left hip. The images are of good technical quality. Summary results are attached. FINDINGS: LEFT FEMUR, NECK: Current: BMD 0.590 g/cm2, Z-score -1.5, T-score -3.2, osteoporosis. Baseline: BMD 0.536 g/cm2. LEFT FEMUR, TOTAL: Current: BMD 0.541 g/cm2, Z-score -2.2, T-score -3.7, osteoporosis, 9.1% increase from baseline (<5% change is not significant). Baseline: BMD 0.496 g/cm2. AP SPINE L2-L4 (excluding L1): The data of L1-L4 has been changed to exclude the L1 vertebral body, because degenerative sclerosis at this level may cause overestimation of lumbar spine density. Current: BMD 0.581 g/cm2, Z-score -3.2, T-score -5.2, osteoporosis, 4.1% increase from baseline (<5% change is not significant). Baseline: BMD 0.558 g/cm2. IDENTIFIED RISK FACTORS: Early menopause, secondary osteoporosis, history of fracture (adult). HISTORY OF FRACTURE: Spine. MEDICATIONS: Calcium supplements or multivitamin, vitamin D. MM/XR DEXA axial skeleton IMPRESSION: 1. DIAGNOSIS: Severe osteoporosis based on the lowest T-score value of -5.2 in the lumbar spine and history of fracture applying World Health Organization criteria. 2. 10-YEAR FRACTURE RISK PREDICTION, FRAX: According to the guidelines, FRAX calculation should only be performed on patients in the osteopenia bone density category. Therefore, FRAX was not performed on this patient. 3. Treatment Recommendations: NOF guidelines recommend consideration for treatment in postmenopausal women and men age 50 and older presenting with the following: -A hip or vertebral (clinical or morphometric) fracture. -T-score less than or equal to -2.5 at the femoral neck or spine after appropriate evaluation to exclude secondary causes. -Low bone mass at the hip or spine and a 10-year fracture probability by FRAX of greater than or equal to 3% for hip fracture or greater than or equal to 20% for major osteoporotic fracture based on the [place] adapted WHO algorithm. 4. Other Recommendations: All treatment decisions require clinical judgment and consideration of individual patient factors, including patient preferences, comorbidities, previous drug use, risk factors not captured in the FRAX model (e.g. frailty, falls, vitamin D deficiency, increased bone turnover, interval significant decline in bone density) and possible under or overestimation of fracture risk by FRAX. Additional medical evaluation for secondary cause of low bone mineral density may be appropriate. FUTURE SCAN RECOMMENDATION: People with diagnosed cases of osteoporosis or at high risk for fracture should have regular bone mineral density tests. For patients eligible for Medicare, routine testing is allowed once every 2 years. The testing frequency can be increased to one year for patients who have rapidly progressing disease, those who are receiving or discontinuing medical therapy to restore bone mass, or have additional risk factors.
== END 2023-12-15 10:19 | disposition home or self-care (01) ==
LOC: HO.MAMMO 10:18
PROVIDERS: PCP Internal Medicine; Visit Provider Internal Medicine Endocrinology, Diabetes & Metabolism
DX: Z13.820 Encounter for screening for osteoporosis (principal); Z78.0 Asymptomatic menopausal state; M81.0 Age-related osteoporosis without current pathological fracture
CPT/HCPCS: 77080

== ENCOUNTER 2023-12-19 14:10 | Outpatient (AMB) | payer OTHER, SELFPAY ==
--- NOTE | 2023-12-19 14:12 | A.OFFVIS_ITS ---
Vital Signs 12/19/23 14:13 Height 5 ft Weight 102 lb 8.239 oz BMI 20.0 BP 108/80 Blood Pressure Location Lt brachial Position Sitting Pulse 78 Pulse Source Pulse Oximeter Intake Visit Reasons: Osteoporosis-CONFIRMED Intake Note: Patient presents today for Osteoporosis follow up, last seen by Dr. Tidwell on 10/28/2022. Aircraft Delivery Checker Required: Yes Aircraft Delivery Checker Language: Systems Security Consultant Name: Patricia Information Interpreted: non-clinical & clinical Accompanied by: Self / Same As Patient Allergies No Known Allergies Allergy (Verified 12/19/23 14:16) HPI Comments Details: 63 YO Female with PMHx NTMNG and Osteoporosis who is seen in F/U Osteoporosis will also be addressed. She was previously followed by Dr. Vogt.. Patient last saw Dr. Tidwell on 11/01/2022 2) Osteoporosis: First diagnosed in 2020 after she suffered a fall and MRI revealed a compression fracture of the spine. She had a DEXA completed which revealed severe osteoporosis at all sties. She was started on fosamax by her PCP and used 1 dose, but was unable to tolerate this due to GI distress. No history of pathologic fracture or ONJ. Has 1-2 servings of dietary calcium per day in the form of oat milk. She is lactose intolerant. Stopped taking her Calcium supplement as it was irritating her stomach. Takes 50,000 IU twice a week Vitamin D. Uses daily PPI. Denies ever using anticoagulant, antiepileptic or glucocorticoid medication. Does weight bearing exercise 5 days per week in the form of walking for 1 hour every day.. Fracture history: Suffered a compression fracture of the spine. 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 Menses were regular. . She breastfed for 1 year in total. Menopause was age 45. She never used HRT. Denies history of Kidney stones. Has family history of Osteoporosis and a hip fracture in her Mother. UTD on dental cleanings and sees dentist every 6 months. No planned upcoming dental work or extractions. DXA: 05/21/2021 FINDINGS: AP SPINE L1-L4: BMD 0.572 g/cm2, Z-score -3.4, T-score -5.1, osteoporosis. LEFT FEMUR, NECK: BMD 0.532 g/cm2, Z-score -2.1, T-score -3.6, osteoporosis. LEFT FEMUR, TOTAL: BMD 0.500 g/cm2, Z-score -2.7, T-score -4.0, osteoporosis. Thyroid US: 03/24/2021 Right Thyroid Lobe: 4.2 x 1.9 x 1.5 cm, volume 6.3 mL. Previously it measured 4.8 x 1.9 x 1.5 cm and volume 7.3 mL. Parenchyma: The gland echotexture is homogeneous. Thyroid vascularity is normal. Left Thyroid Lobe: 4.3 x 1.7 x 1.4 cm, volume 5.4 mL. Previously it measured 4.7 x 1.7 x 1.5 cm and volume 6.2 mL. Parenchyma: The gland echotexture is homogeneous. Thyroid vascularity is normal. Isthmus: 0.2 cm in maximum AP dimension. Estimated total number of nodules greater than or equal to 1 cm: 2. Printed Circuit Designer nodules are described as follows: 1. Location: Upper pole. Previously measured 1.1 x 0.5 x 0.6 cm and volume 0.17 mL. ?? ? Size: 1.1 x 0.6 x 0.4 cm, volume 0.15 mL. ?? ? Nodule characteristics: ?? ? Composition: Solid (2). ?? ? Echogenicity: Hypoechoic ?? ? Shape: Wider ?? ? Margins: Smooth (0). ?? ? Echogenic Foci: None (0). ?? ? ACR TI-RADS total points: 4 ?? ? ACR TI-RADS category: 4 2. Location: Right midpole. ?? ? Size: 0.4 x 0.5 x 0.3 cm, volume 0.04 mL. Previously it measured 0.4 x 0.3 x 0.5 cm and volume 0.03 mL. ?? ? Nodule characteristics: ?? ? Composition: Solid (2). ?? ? Echogenicity: Isoechoic (1). ?? ? Shape: Wider ?? ? Margins: Smooth (0). ?? ? Echogenic Foci: None (0). ?? ? ACR TI-RADS total points: 3 ?? ? ACR TI-RADS category: 3 3. Location: Right midpole. ?? ? Size: 0.4 x 0.3 x 0.3 cm, volume 0.02 mL. ?? ? Nodule characteristics: ?? ? Composition: Solid/almost completely solid (2). ?? ? Echogenicity: Isoechoic (1). ?? ? Shape: Wider ?? ? Margins: Smooth (0). ?? ? Echogenic Foci: None (0). ?? ? ACR TI-RADS total points: 3 ?? ? ACR TI-RADS category: 3 4. Location: Right lower pole. ?? ? Size: 0.4 x 0.4 x 0.3 cm, volume 0.03 mL. Previously it measured 0.5 x 0.3 x 0.3 cm and volume 0.02 mL. ?? ? Nodule characteristics: ?? ? Composition: mostly solid (2). ?? ? Echogenicity: Isoechoic (1). ?? ? Shape: Wider ?? ? Margins: Smooth (0). ?? ? Echogenic Foci: None (0). ?? ? ACR TI-RADS total points: 3 ?? ? ACR TI-RADS category: 3 There is a small nodule in the left midpole measuring 1.5 cm with total points of 3 and TI-RADS category 3. NODES: No lymphadenopathy is seen in the tissue surrounding the thyroid gland. Labs: Laboratory Tests 11/09/21 02/11/22 02/11/22 12:24 09:00 09:00 Sodium 142 Potassium 4.6 Creatinine 0.79 Estimated GFR > 60 Calcium Albumin 4.2 25-OH Vitamin D Total 23.7 TSH Free T4 PTH Intact 44 Calcium (PTH Intact) 9.8 IgA 306 Endomysial Ab Titer Endomysial IgA Ab Tiss Transglutamin IgA <1.0 Tiss Transglutamin IgG 07/10/22 10/28/22 10/28/22 09:52 14:00 14:00 Sodium 141 Potassium 4.4 Creatinine 0.75 Estimated GFR > 60 Calcium 9.7 D Albumin 4.4 25-OH Vitamin D Total 34.5 TSH 1.20 Free T4 1.15 PTH Intact 59 Calcium (PTH Intact) 7.1 L IgA Endomysial Ab Titer TNP Endomysial IgA Ab Negative Tiss Transglutamin IgA Tiss Transglutamin IgG <1.0 Secondary workup for osteoporosis was negative. 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 Vitamin D deficiency Surgical History Hx of section Family History Father Pulmonary disease Mother No known health problems Fracture of bone due to accidental fall Social History Alcohol intake: current Alcohol intake frequency: does not drink Patient Tobacco Use Status: Never used Tobacco Physical Exam Vital Signs: Last Vital Signs Pulse 78 12/19/23 14:13 BP 108/80 12/19/23 14:13 BMI result Body Mass Index 20.0 Assessment & Plan Assessment & Plan (1) Osteoporosis: Code(s): M81.0 - Age-related osteoporosis without current pathological fracture Category: Medical Plan: This a 63-year-old female with a history of severe osteoporosis and history of compression fracture found to have low urinary calcium suggestive of malabsorption of calcium. Patient is a very high risk for subsequent fracture . Plan is to resume the calcium supplementation to 600 mg BID and use Viactiv . Would recheck 24 hour urine for calcium and creatinine to ensure calcium repletion prior to initiating anabolic. . Would also consider starting anabolic therapy like Evenity once the patient is calcium replete considering degree of osteoporosis and previous fracture Orders: Orders Vitamin D 25-OH Total 2 Months M81.0 - Age-related osteoporosis without current pathological fracture Calcium, 24 Hr Ur 2 Months M81.0 - Age-related osteoporosis without current pathological fracture Creatinine, 24 Hr Group 2 Months M81.0 - Age-related osteoporosis without current pathological fracture Coding Level of Care Code Est Pt Level 3 (57511) Diagnoses Osteoporosis M81.0
[2023-12-19 14:13] VITALS: BP 108/80; PULSE 78
== END 2023-12-19 14:59 | disposition home or self-care (01) ==
PROVIDERS: PCP Internal Medicine; Visit Provider Internal Medicine Endocrinology, Diabetes & Metabolism
DX: M81.0 Age-related osteoporosis without current pathological fracture (principal)
CPT/HCPCS: 99213

== ENCOUNTER → 2023-12-19 14:10 | Outpatient (BNVA) | payer OTHER, SELFPAY | PROVIDERS: PCP Internal Medicine; Visit Provider Internal Medicine Endocrinology, Diabetes & Metabolism | DX: M81.0 Age-related osteoporosis without current pathological fracture (principal); E04.2 Nontoxic multinodular goiter; E73.9 Lactose intolerance, unspecified; E55.9 Vitamin D deficiency, unspecified | CPT/HCPCS: 99212 ==

== ENCOUNTER 2024-03-13 09:03 | Outpatient (REF) | payer OTHER, SELFPAY ==
[2024-03-13 11:21] LABS: Alanine Aminotransferase 15 U/L (0-31); Albumin Level 4.3 g/dL (3.5-5.0); Alkaline Phosphatase 67 U/L (39-117); Anion Gap 15 (12-20); Aspartate Amino Transferase 20 U/L (5-31); Bilirubin Total 0.4 mg/dL (0.0-1.0); Blood Urea Nitrogen 16 mg/dL (9-16); Calcium 9.5 mg/dL (8.4-10.2); Carbon Dioxide 26 mmol/L (22-29); Chloride 106 mmol/L (96-108); Estimated Glomerular Filt Rate > 60; Glucose Random 86 mg/dL (60-115); Phosphorus 3.8 mg/dL (2.7-4.5); Potassium 4.1 mmol/L (3.3-5.1); Sodium 143 mmol/L (135-145); Thyroid Stimulating Hormone 0.94 uIU/mL (0.32-4.0); Total Protein 7.6 g/dL (6.5-8.0); Vitamin D 25-OH Total 33.6 ng/mL (>30)
[2024-03-13 11:22] LABS: Free T4 (Free Thyroxine) 1.06 ng/dL (0.71-1.85)
== END 2024-03-13 09:04 | disposition home or self-care (01) ==
LOC: HO.LAB 09:03
PROVIDERS: Internal Medicine; PCP Internal Medicine; Visit Provider Internal Medicine Endocrinology, Diabetes & Metabolism
DX: M81.0 Age-related osteoporosis without current pathological fracture (principal); E04.2 Nontoxic multinodular goiter
CPT/HCPCS: 36415; 80053; 82306; 84100; 84439; 84443

== ENCOUNTER 2024-03-20 07:57 | Outpatient (AMB) | payer OTHER, SELFPAY ==
[2024-03-20 08:04] VITALS: BP 106/62; PULSE 76; BMI 20.9
--- NOTE | 2024-03-20 08:04 | MHC.OFFVIS ---
Vital Signs 03/20/24 08:04 Height 5 ft Weight 106 lb 14.787 oz BMI 20.9 BP 106/62 Blood Pressure Location Lt brachial Position Sitting Pulse 76 Pulse Source Pulse Oximeter Intake Visit Reasons: Osteoporosis-confirmed Intake Note: Patient present today for Osteoporosis follow up visit. Jumpbasting Collar Baster Required: Yes Jumpbasting Collar Baster Language: Operator Automated Process Services: Jumpbasting Collar Baster Present Jumpbasting Collar Baster Name: Viktoria Information Interpreted: non-clinical & clinical Accompanied by: Self / Same As Patient Allergies No Known Allergies Allergy (Verified 03/20/24 08:08) Medication List - Last Reconciled 03/20/24 by Gerard Miller MD acetaminophen (Tylenol Extra Strength) 500 mg PO Q6H PRN acetaminophen 325 mg PO QID PRN calcium citrate-vitamin D2 250 mg-2.5 mcg (100 unit) (Oskar-Citrate) 2 tabs PO BID 30 days cholecalciferol (vitamin D3) 50 mcg PO DAILY 30 days cyclobenzaprine 5 mg PO Q8H PRN 5 days lidocaine 5% (Lidoderm) 1 patch topical DAILY PRN MDD remove after 12 hours loratadine (Claritin) 10 mg PO DAILY PRN naproxen 500 mg PO BID PRN 10 days pantoprazole 20 mg PO DAILY PRN polyethylene glycol 3350 (Miralax) 17 grams PO DAILY PRN HPI Comments Details: 63 YO Female with PMHx NTMNG and Osteoporosis who is seen in F/U Osteoporosis will also be addressed. She was previously followed by Dr. Vogt.. 2) Osteoporosis: First diagnosed in 2020 after she suffered a fall and MRI revealed a compression fracture of the spine. She had a DEXA completed which revealed severe osteoporosis at all sties. She was started on fosamax by her PCP and used 1 dose, but was unable to tolerate this due to GI distress. No history of pathologic fracture or ONJ. Has 1-2 servings of dietary calcium per day in the form of oat milk. She is lactose intolerant. Stopped taking her Calcium supplement as it was irritating her stomach. Takes 50,000 IU twice a week Vitamin D. Uses daily PPI. Denies ever using anticoagulant, antiepileptic or glucocorticoid medication. Does weight bearing exercise 5 days per week in the form of walking for 1 hour every day.. Fracture history: Suffered a compression fracture of the spine. 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 Menses were regular. . She breastfed for 1 year in total. Menopause was age 45. She never used HRT. Denies history of Kidney stones. Has family history of Osteoporosis and a hip fracture in her Mother. UTD on dental cleanings and sees dentist every 6 months. No planned upcoming dental work or extractions. DXA: 05/21/2021 FINDINGS: AP SPINE L1-L4: BMD 0.572 g/cm2, Z-score -3.4, T-score -5.1, osteoporosis. LEFT FEMUR, NECK: BMD 0.532 g/cm2, Z-score -2.1, T-score -3.6, osteoporosis. LEFT FEMUR, TOTAL: BMD 0.500 g/cm2, Z-score -2.7, T-score -4.0, osteoporosis. Thyroid US: 03/24/2021 Right Thyroid Lobe: 4.2 x 1.9 x 1.5 cm, volume 6.3 mL. Previously it measured 4.8 x 1.9 x 1.5 cm and volume 7.3 mL. Parenchyma: The gland echotexture is homogeneous. Thyroid vascularity is normal. Left Thyroid Lobe: 4.3 x 1.7 x 1.4 cm, volume 5.4 mL. Previously it measured 4.7 x 1.7 x 1.5 cm and volume 6.2 mL. Parenchyma: The gland echotexture is homogeneous. Thyroid vascularity is normal. Isthmus: 0.2 cm in maximum AP dimension. Estimated total number of nodules greater than or equal to 1 cm: 2. Tenon Machine Operator nodules are described as follows: 1. Location: Upper pole. Previously measured 1.1 x 0.5 x 0.6 cm and volume 0.17 mL. ?? ? Size: 1.1 x 0.6 x 0.4 cm, volume 0.15 mL. ?? ? Nodule characteristics: ?? ? Composition: Solid (2). ?? ? Echogenicity: Hypoechoic ?? ? Shape: Wider ?? ? Margins: Smooth (0). ?? ? Echogenic Foci: None (0). ?? ? ACR TI-RADS total points: 4 ?? ? ACR TI-RADS category: 4 2. Location: Right midpole. ?? ? Size: 0.4 x 0.5 x 0.3 cm, volume 0.04 mL. Previously it measured 0.4 x 0.3 x 0.5 cm and volume 0.03 mL. ?? ? Nodule characteristics: ?? ? Composition: Solid (2). ?? ? Echogenicity: Isoechoic (1). ?? ? Shape: Wider ?? ? Margins: Smooth (0). ?? ? Echogenic Foci: None (0). ?? ? ACR TI-RADS total points: 3 ?? ? ACR TI-RADS category: 3 3. Location: Right midpole. ?? ? Size: 0.4 x 0.3 x 0.3 cm, volume 0.02 mL. ?? ? Nodule characteristics: ?? ? Composition: Solid/almost completely solid (2). ?? ? Echogenicity: Isoechoic (1). ?? ? Shape: Wider ?? ? Margins: Smooth (0). ?? ? Echogenic Foci: None (0). ?? ? ACR TI-RADS total points: 3 ?? ? ACR TI-RADS category: 3 4. Location: Right lower pole. ?? ? Size: 0.4 x 0.4 x 0.3 cm, volume 0.03 mL. Previously it measured 0.5 x 0.3 x 0.3 cm and volume 0.02 mL. ?? ? Nodule characteristics: ?? ? Composition: mostly solid (2). ?? ? Echogenicity: Isoechoic (1). ?? ? Shape: Wider ?? ? Margins: Smooth (0). ?? ? Echogenic Foci: None (0). ?? ? ACR TI-RADS total points: 3 ?? ? ACR TI-RADS category: 3 There is a small nodule in the left midpole measuring 1.5 cm with total points of 3 and TI-RADS category 3. NODES: No lymphadenopathy is seen in the tissue surrounding the thyroid gland. Labs: Laboratory Tests 11/09/21 02/11/22 02/11/22 12:24 09:00 09:00 Sodium 142 Potassium 4.6 Creatinine 0.79 Estimated GFR > 60 Calcium Albumin 4.2 25-OH Vitamin D Total 23.7 TSH Free T4 PTH Intact 44 Calcium (PTH Intact) 9.8 IgA 306 Endomysial Ab Titer Endomysial IgA Ab Tiss Transglutamin IgA <1.0 Tiss Transglutamin IgG 07/10/22 10/28/22 10/28/22 09:52 14:00 14:00 Sodium 141 Potassium 4.4 Creatinine 0.75 Estimated GFR > 60 Calcium 9.7 D Albumin 4.4 25-OH Vitamin D Total 34.5 TSH 1.20 Free T4 1.15 PTH Intact 59 Calcium (PTH Intact) 7.1 L IgA Endomysial Ab Titer TNP Endomysial IgA Ab Negative Tiss Transglutamin IgA Tiss Transglutamin IgG <1.0 Secondary workup for osteoporosis was negative. Except for low calcium intake. Taking Viactiv 500 mg QD . 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 Vitamin D deficiency Surgical History Hx of section Family History Father Pulmonary disease Mother No known health problems Fracture of bone due to accidental fall Social History Alcohol intake: current Alcohol intake frequency: does not drink Patient Tobacco Use Status: Never used Tobacco Physical Exam Vital Signs: Last Vital Signs Pulse 76 03/20/24 08:04 BP 106/62 03/20/24 08:04 BMI result Body Mass Index 20.9 Assessment & Plan Assessment & Plan (1) Osteoporosis: Code(s): M81.0 - Age-related osteoporosis without current pathological fracture Category: Medical Plan: This a 63-year-old female with a history of severe osteoporosis and history of compression fracture found to have low urinary calcium suggestive of malabsorption of calcium. Patient is a very high risk for subsequent fracture . Plan is to resume the calcium supplementation to 600 mg BID and use Viactiv . Would recheck 24 hour urine for calcium and creatinine to ensure calcium repletion prior to initiating anabolic. . Would also consider starting anabolic therapy like Evenity once the patient is calcium replete considering degree of osteoporosis and previous fracture Orders: Orders Creatinine, 24 Hr Group 2 Months M81.0 - Age-related osteoporosis without current pathological fracture Calcium, 24 Hr Ur 2 Months M81.0 - Age-related osteoporosis without current pathological fracture Coding Level of Care Code Est Pt Level 3 (77393) Diagnoses Osteoporosis M81.0
== END 2024-03-20 08:23 | disposition home or self-care (01) ==
PROVIDERS: PCP Internal Medicine; Visit Provider Internal Medicine Endocrinology, Diabetes & Metabolism
DX: M81.0 Age-related osteoporosis without current pathological fracture (principal)
CPT/HCPCS: 99213

== ENCOUNTER 2024-03-20 07:57 | Outpatient (REF) | payer OTHER, SELFPAY ==
[2024-03-20 11:27] LABS: Creatinine, mg/dL 26.31
[2024-03-20 11:41] LABS: Creatinine, 24Hr Urine 0.6 G/Day (1.0-2.0); Total Volume 24 Hour Urine 2400 mL
[2024-03-21 15:43] LABS: Calcium, 24 Hr Urine 38 mg/24 h; Calcium/Creatinine Ratio 59 mg/g creat (30-275); Creatinine 24Hr Urine 0.65 g/24 h (0.50-2.15)
== END 2024-03-20 07:58 | disposition home or self-care (01) ==
LOC: HO.LNP 07:57
PROVIDERS: Visit Provider Internal Medicine Endocrinology, Diabetes & Metabolism
DX: M81.0 Age-related osteoporosis without current pathological fracture (principal); E55.9 Vitamin D deficiency, unspecified
CPT/HCPCS: 82340; 82570; 99212

== ENCOUNTER 2024-06-18 10:55 | Outpatient (REF) | payer OTHER, SELFPAY ==
[2024-06-18 11:45] LABS: Total Volume 24 Hour Urine 1450 mL
[2024-06-18 12:51] LABS: Creatinine, 24Hr Urine 0.9 G/Day (1.0-2.0)
[2024-06-20 19:58] LABS: Calcium, 24 Hr Urine 44 mg/24 h; Calcium/Creatinine Ratio 47 mg/g creat (30-275); Creatinine 24Hr Urine 0.93 g/24 h (0.50-2.15)
== END 2024-06-18 10:56 | disposition home or self-care (01) ==
LOC: HO.LNP 10:55
PROVIDERS: Visit Provider Internal Medicine Endocrinology, Diabetes & Metabolism
DX: M81.0 Age-related osteoporosis without current pathological fracture (principal)
CPT/HCPCS: 82340; 82570

== ENCOUNTER 2024-06-20 09:17 | Outpatient (AMB) | payer OTHER, SELFPAY ==
--- NOTE | 2024-06-20 09:18 | A.OFFVIS_ITS ---
Vital Signs 06/20/24 09:28 Height 4 ft 11.57 in Weight 112 lb 3.445 oz BMI 22.2 BP 112/72 Blood Pressure Location Rt brachial Position Sitting Pulse 78 Pulse Source Pulse Oximeter Intake Visit Reasons: f/u osteoporosis Intake Note: Patient present today for Osteoporosis follow up. Director Of Residence Life Required: Yes Director Of Residence Life Language: Bibliographic Services Specialist Services: Director Of Residence Life Present Director Of Residence Life Name: Blanca Information Interpreted: non-clinical & clinical Accompanied by: Self / Same As Patient Allergies No Known Allergies Allergy (Verified 06/20/24 09:35) HPI Comments Details: 63 YO Female with PMHx NTMNG and Osteoporosis who is seen in F/U Osteoporosis will also be addressed. She was previously followed by Dr. Vogt.. 2) Osteoporosis: First diagnosed in 2020 after she suffered a fall and MRI revealed a compression fracture of the spine. She had a DEXA completed which revealed severe osteoporosis at all sties. She was started on fosamax by her PCP and used 1 dose, but was unable to augie erate this due to GI distress. No history of pathologic fracture or ONJ. Has 1-2 servings of dietary calcium per day in the form of oat milk. She is lactose intolerant. Stopped taking her Calcium supplement as it was irritating her stomach. Takes 50,000 IU twice a week Vitamin D. Uses daily PPI. Denies ever using anticoagulant, antiepileptic or glucocorticoid medication. Does weight bearing exercise 5 days per week in the form of walking for 1 hour every day.. Fracture history: Suffered a compression fracture of the spine. 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 Menses were regular. . She breastfed for 1 year in total. Menopause was age 45. She never used HRT. Denies history of Kidney stones. Has family history of Osteoporosis and a hip fracture in her Mother. UTD on dental cleanings and sees dentist every 6 months. No planned upcoming dental work or extractions. DXA: 05/21/2021 FINDINGS: AP SPINE L1-L4: BMD 0.572 g/cm2, Z-score -3.4, T-score -5.1, osteoporosis. LEFT FEMUR, NECK: BMD 0.532 g/cm2, Z-score -2.1, T-score -3.6, osteoporosis. LEFT FEMUR, TOTAL: BMD 0.500 g/cm2, Z-score -2.7, T-score -4.0, osteoporosis. Thyroid US: 03/24/2021 Right Thyroid Lobe: 4.2 x 1.9 x 1.5 cm, volume 6.3 mL. Previously it measured 4.8 x 1.9 x 1.5 cm and volume 7.3 mL. Parenchyma: The gland echotexture is homogeneous. Thyroid vascularity is normal. Left Thyroid Lobe: 4.3 x 1.7 x 1.4 cm, volume 5.4 mL. Previously it measured 4.7 x 1.7 x 1.5 cm and volume 6.2 mL. Parenchyma: The gland echotexture is homogeneous. Thyroid vascularity is normal. Isthmus: 0.2 cm in maximum AP dimension. Estimated total number of nodules greater than or equal to 1 cm: 2. Legal Investigator nodules are described as follows: 1. Location: Upper pole. Previously measured 1.1 x 0.5 x 0.6 cm and volume 0.17 mL. ?? ? Size: 1.1 x 0.6 x 0.4 cm, volume 0.15 mL. ?? ? Nodule characteristics: ?? ? Composition: Solid (2). ?? ? Echogenicity: Hypoechoic ?? ? Shape: Wider ?? ? Margins: Smooth (0). ?? ? Echogenic Foci: None (0). ?? ? ACR TI-RADS total points: 4 ?? ? ACR TI-RADS category: 4 2. Location: Right midpole. ?? ? Size: 0.4 x 0.5 x 0.3 cm, volume 0.04 mL. Previously it measured 0.4 x 0.3 x 0.5 cm and volume 0.03 mL. ?? ? Nodule characteristics: ?? ? Composition: Solid (2). ?? ? Echogenicity: Isoechoic (1). ?? ? Shape: Wider ?? ? Margins: Smooth (0). ?? ? Echogenic Foci: None (0). ?? ? ACR TI-RADS total points: 3 ?? ? ACR TI-RADS category: 3 3. Location: Right midpole. ?? ? Size: 0.4 x 0.3 x 0.3 cm, volume 0.02 mL. ?? ? Nodule characteristics: ?? ? Composition: Solid/almost completely solid (2). ?? ? Echogenicity: Isoechoic (1). ?? ? Shape: Wider ?? ? Margins: Smooth (0). ?? ? Echogenic Foci: None (0). ?? ? ACR TI-RADS total points: 3 ?? ? ACR TI-RADS category: 3 4. Location: Right lower pole. ?? ? Size: 0.4 x 0.4 x 0.3 cm, volume 0.03 mL. Previously it measured 0.5 x 0.3 x 0.3 cm and volume 0.02 mL. ?? ? Nodule characteristics: ?? ? Composition: mostly solid (2). ?? ? Echogenicity: Isoechoic (1). ?? ? Shape: Wider ?? ? Margins: Smooth (0). ?? ? Echogenic Foci: None (0). ?? ? ACR TI-RADS total points: 3 ?? ? ACR TI-RADS category: 3 There is a small nodule in the left midpole measuring 1.5 cm with total points of 3 and TI-RADS category 3. NODES: No lymphadenopathy is seen in the tissue surrounding the thyroid gland. Labs: Laboratory Tests 11/09/21 02/11/22 02/11/22 12:24 09:00 09:00 Sodium 142 Potassium 4.6 Creatinine 0.79 Estimated GFR > 60 Calcium Albumin 4.2 25-OH Vitamin D Total 23.7 TSH Free T4 PTH Intact 44 Calcium (PTH Intact) 9.8 IgA 306 Endomysial Ab Titer Endomysial IgA Ab Tiss Transglutamin IgA <1.0 Tiss Transglutamin IgG 07/10/22 10/28/22 10/28/22 09:52 14:00 14:00 Sodium 141 Potassium 4.4 Creatinine 0.75 Estimated GFR > 60 Calcium 9.7 D Albumin 4.4 25-OH Vitamin D Total 34.5 TSH 1.20 Free T4 1.15 PTH Intact 59 Calcium (PTH Intact) 7.1 L IgA Endomysial Ab Titer TNP Endomysial IgA Ab Negative Tiss Transglutamin IgA Tiss Transglutamin IgG <1.0 Secondary workup for osteoporosis was negative. Except for low calcium intake. Taking calcium citrate 500 mg BID . 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 Vitamin D deficiency Surgical History Hx of section Family History Father Pulmonary disease Mother No known health problems Fracture of bone due to accidental fall Social History Alcohol intake: current Alcohol intake frequency: does not drink Patient Tobacco Use Status: Never used Tobacco Physical Exam Vital Signs: BMI result Body Mass Index 22.2 Assessment & Plan Assessment & Plan (1) Osteoporosis: Code(s): M81.0 - Age-related osteoporosis without current pathological fracture Category: Medical Plan: This a 64-year-old female with a history of severe osteoporosis and history of compression fracture found to have low urinary calcium suggestive of malabsorption of calcium. Patient is a very high risk for subsequent fracture . Plan is to the calcium supplementation to 600 mg BID and use Viactiv . Would recheck 24 hour urine for calcium and creatinine when available to ensure calcium repletion prior to initiating anabolic. . Would also consider starting anabolic therapy like Evenity once the patient is calcium replete considering degree of osteoporosis and previous fracture Coding Level of Care Code Est Pt Level 3 (35892) Diagnoses Osteoporosis M81.0
[2024-06-20 09:28] VITALS: BP 112/72; PULSE 78; BMI 22.2
== END 2024-06-20 09:42 | disposition home or self-care (01) ==
PROVIDERS: PCP Internal Medicine; Visit Provider Internal Medicine Endocrinology, Diabetes & Metabolism
DX: M81.0 Age-related osteoporosis without current pathological fracture (principal)
CPT/HCPCS: 99213

== ENCOUNTER → 2024-06-20 09:17 | Outpatient (BNVA) | payer OTHER, SELFPAY | PROVIDERS: PCP Internal Medicine; Visit Provider Internal Medicine Endocrinology, Diabetes & Metabolism | DX: M81.0 Age-related osteoporosis without current pathological fracture (principal); E55.9 Vitamin D deficiency, unspecified | CPT/HCPCS: 99212 ==

== ENCOUNTER 2024-09-10 09:17 | Outpatient (REF) | payer OTHER, SELFPAY ==
--- OUTSIDE RECORDS SUMMARY | 2024-09-10 09:38 | XMS_ITS | Encounter Summary ---
Author Organization [facility] Address [address] [place] [address] Care Team Providers Care Director Sales Name Role Phone Isabel Dunlap MD Primary Care Provider + Encounter Details Date Type Department Care Team (Late st Contact Info) Description 01/26/2023 [facility] [address], [place] [phone] Isabel Dunlap MD [address], [place] [phone] Social History Tobacco Use Types Packs/Day Years Used Date Smoking Tobacco: Never Comments Unknown Sex and Gender Information Value Date Recorded Sex Assigned at Female 06/07/2022 10:30 AM EDT Legal Sex Female 10:30 AM EDT Gender Identity Female 06/07/2022 10:30 AM EDT Sexual Orientation Straight 06/07/2022 10 :30 AM EDT documented as of this encounter Plan of Treatment Not on file documented as of this encounter Procedures Procedure Name Priority Date/Time Associated Diagnosis Comments COLONOSCOPY Routine 11/10/2017 11:13 AM EDT documented in this encounter Results * Hm Colonoscopy (11/10/2017 11:13 AM EDT) Colonoscopy Normal Normal Narrative Jo Simin - 11/10/2017 11:13 AM EDT Recommended 10 year follow up us Historical Provider HEALTH MAINTENANCE Edited Result - Final documented in this encounter Visit Diagnoses Not on filedocumented in this encounter Care Teams Director Sales Relationship Specialty Start Date End Date Isabel Dunlap MD [address], [place] [phone] PCP - General Family Medicine 01/09/19 documented as of this encounter
--- OUTSIDE RECORDS SUMMARY | 2024-09-10 09:38 | XMS_ITS | Clinical Summary ---
Author Organization [facility] Address [address] [place] [address] Care Team Providers Care Merry Go Round Attendant Name Role Phone Anika Gamble DMD Primary Care Provider [phone] Source Comments PLEASE NOTE, if this patient is a minor, it may be UNLAWFUL to discuss sensitive information that is contained in these records (such as FAMILY PLANNING, MENTAL HEALTH or SUBSTANCE ABUSE) with the minor patient's parent or other person without the patient's specific authorization.[facility] Immunizations Name Administration Dates Next Due Moderna COVID-19 Vaccine, re d cap blue label, 12+ Primary Series 12/08/2020,11/10/2020 Social History Tobacco Use Types Packs/Day Years Used Date Smoking Tobacco: Never Assessed Social Connections Answer Date Recorded Social Connections and Isolation 0 11/10/2020 Financial Resource Strain Answer Date R ecorded Financial Resource Strain 0 2020 Stress Answer Date Recorded Stress 0 11/10/2020 Physical Activity Answer Date Recorded Physical Activity 0 11/10/2020 Food Insecurity Answer Date Recorded Food 0 11/10/2020 Transportation Needs Answer Date Record ed Transportation 0 11/10/2020 Housing Stability Answer Date Recorded Housing 0 11/10/2020 Safety and Environment Answer Date Roge rded Safety 0 11/10/2020 Utilities Answer Date Recorded Utilities 0 11/10/2020 Employment Answer Date Recorded Employment 0 11/10/2020 Comments Unknown Sex and Gender Information Value Date Recorded Sex Assigned at Not on file Legal Sex Female 6:15 AM PST Gender Identity Not on file Sexual Orientation Not on file Plan of Treatment Health Maintenance Due Date Last Done Comments Diabetes Screening 1961 HPV Screening 1961 Hepatitis C Screening 1961 Lipid Screening 1961 Pap + HPV 1961 Tobacco Screening 1961 HIV Screening 1976 Annual Preventive Care Visit 1979 Hypertension Screening (#1) 1979 Cervical Cancer Screening 1982 Pap Smear 1982 Breast Cancer Screening (Mammogram) 2001 CT Colonography 2006 Colonoscopy 2006 Colorectal Cancer Screening 2006 FIT/gFOBT 2006 Fecal DNA 2006 Flexible Sigmoidoscopy 2006 Imm-Zoster, Recombinant (1 of 2) 2011 [id number] ( season) 2024 021, 11/10/2020 Imm-Influenza (#1) 2024 11/15/2016 Alcohol and Drug Screen 08/08/2024 Depression Annual Screen 08/08/2024 Imm-DTaP/Tdap/Td (2 - Td or Tdap) 07/11/2027 017 Cervical Ablation/Cold-Knife Conization Discontinued Cervical Cryotherapy Discontinued Colposcopy Discontinued Endometrial Biopsy Discontinued Excision/Leep Discontinued HPV Genotyping Discontinued Vaginal Pap Discontinued Vulvoscopy Discontinued Insurance HEALTH SAFETY NET DENTAL [employer] [facility] Member Subscriber Plan / Payer (Ef fective 2020-Present) Name:Sunny Perea Relation to Subscriber:Self Name:Sunny Perea Payer ID:[id number] Type:Indemnity Address: [facility] [address] [place] [address] Care Teams Merry Go Round Attendant Relationship Specialty Start Date End Date Anika Gamble DMD [address] [place] [address] PCP - General 04/19/19
--- OUTSIDE RECORDS SUMMARY | 2024-09-10 09:38 | XMS_ITS | Clinical Summary ---
Author Organization [facility] ity Address [address] [place] [address] Care Team Providers Care Society Editor Name Role Phone Unavailable Primary Care Provider Unavailabl e Social History Tobacco Use Types Packs/Day Years Used Date Smoking Tobacco: Never Assessed Sex and Gender Information Value Date Recorded Sex Assigned at Not on file Gender Identity Not on file Sexual Orientation Not on file Plan of Treatment Health Maintenance Due Date Last Done Comments Breast Cancer Screening 1961 DTaP,Tdap,and Td Vaccines (1 - Tdap) 1980 Cervical Cancer Screening: P ap Smear 1982 Zoster Vaccines (1 of 2) 2011 COVID-19 Vaccine (2023-2 5 season) 2024 Influenza Vaccine (#1) 2024 RSV Immunization Patients 60 + Years Old (1 - 1-dose 75+ series) 2036 HIB Vaccines Aged Out No longer eligi ble based on patient's age to complete this topic HPV Vaccines Aged Out No longer eligi ble based on patient's age to complete this topic Hepatitis A Vaccines Aged Out No long er eligible based on patient's age to complete this topic Hepatitis B Vaccines Aged Out No long er eligible based on patient's age to complete this topic IPV Vaccines Aged Out No longer eligi ble based on patient's age to complete this topic MMR Vaccines Aged Out No longer eligi ble based on patient's age to complete this topic Meningococcal ACWY Vaccine Aged Out N o longer eligible based on patient's age to complete this topic Pneumococcal Vaccine: Pediat rics (0 to 5 Years) and At-Risk Patients (6 to 64 Years) Aged Out No longer eligible b ased on patient's age to complete this topic RSV Immunization Patients Un francisco 20 months Aged Out No longer eligible b ased on patient's age to complete this topic Varicella Vaccines Aged Out No longer eligible based on patient's age to complete this topic
--- OUTSIDE RECORDS SUMMARY | 2024-09-10 09:38 | XMS_ITS | Clinical Summary ---
Author Organization [facility] Address [address] [facility] [address] [place] [address] Care Team Providers Care Parking Lot Laborer Name Role Phone Isabel Dunlap MD Primary Care Provider + Allergies Active Allergy Reactions Criticality Noted Date Comments Lactose 03/03/2021 Other reaction(s): Rash, Rash Medications acetaminophen (Tylenol) 325 MG capsule 1-2 caps po qid prn pain 1 Active docusate sodium (Colace) 100 MG capsule Take 1 capsule by mouth every 12 (twelve) hours. 1 Active Diclofenac Sodium 1 % gel Apply topically every 8 (eight) hours. 1 Active pantoprazole (ProtoNix) 40 MG EC tablet Take 1 tablet by mouth every 12 (twelve) hours. 1 Active sennosides (Senokot) 8.6 MG tablet Take 1 tablet by mouth every 12 (twelve) hours. 1 Active simethicone (Mylicon) 80 MG chewable tablet Chew every 8 (eight) hours. 1 Active triamcinolone (Nasacort Allergy 24HR) 55 MCG/ACT nasal inhaler Administer 2 sprays into affected nostril(s) at bed time. 2 Active cetirizine (ZyrTEC) 10 MG tabletIndications :Allergic rhinitis, unspecified seasonality, unspecified trigger Take 1 tablet (10 mg) by mouth in the morning. 90 tablet 3 3 Active linaCLOtide (Linzess) 145 MCG capsuleIndication s:Irritable bowel syndrome with constipation Take 1 capsule (145 mcg) by mouth before breakfast. 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 Pure hypercholesterolemia 07/15/2022 Seborrheic keratosis 07/15/2022 Swollen abdomen 07/15/2022 Visual impairment 07/15/2022 Vitamin D deficiency 07/15/2022 Age-related osteoporosis with current pathologic al fracture 05/22/2021 Compression fracture of vertebral column 021 Indigestion 03/24/2018 Underweight 03/24/2018 Upper abdominal pain 02/15/2018 Food intolerance 02/13/2018 Glossodynia 12/28/2017 Nausea 12/28/2017 Taste sense altered 12/28/2017 Unintentional weight loss 12/28/2017 Immunizations Name Administration Dates Next Due Influenza injectable quadrivalent preservative f ree 05/07/2021,11/15/2016 Moderna Covid-19 Vaccine 12+ 12/08/2020,11/11/19 21 Tdap 07/11/2017 Social History Tobacco Use Types Packs/Day Years Used Date Smoking Tobacco: Never Tobacco Cessation:Counseling Given: Not Answered Comments Unknown Sex and Gender Information Value Date Recorded Sex Assigned at Female 06/07/2022 10:30 AM EDT Legal Sex Female 10:30 AM EDT Gender Identity Female 06/07/2022 10:30 AM EDT Sexual Orientation Straight 06/07/2022 10 :30 AM EDT Last Filed Vital Signs Vital Sign Reading Time Taken Comments Blood Pressure 118/76 05/14/2022 12:10 AM EDT Pulse 72 05/14/2022 12:10 AM EDT Temperature - - Respiratory Rate - - Oxygen Saturation - - Inhaled Oxygen Concentration - - Weight 48 kg (105 lb 12.8 oz) 05/14/2022 12:10 A M EDT Height 152.4 cm (5') 05/14/2022 12:10 AM EDT Body Mass Index 20.66 05/14/2022 12:10 AM EDT Plan of Treatment Health Maintenance Due Date Last Done Comments CT Colonography 1961 Depression Screening 1961 FIT DNA/Cologuard 1961 FIT 1961 FOBT 1961 HIV Screening 1961 SDOH Screening 1961 Sigmoidoscopy 1961 Alcohol/Substance Use Screening 1973 Tobacco Screening 1973 Hepatitis C Screening 1979 Hepatitis A Vaccines (1 of 2 - Risk 2-dose series) 1980 Pneumococcal Vaccine: 50+ Years (1 of 1 - PCV) 2011 Zoster Vaccines (1 of 2) 2011 Hepatitis B Vaccines (1 of 3 - Risk 3-dose series) 2021 RSV Patients and Patients Aged 60 years or older (1 - Risk 60-74 years 1-dose series) 2021 Mammogram 04/27/2023 04/27/2021, 04/27/2021, 07/14/2017 COVID-19 Vaccine (3 - 2023-2 5 season) 2024 12/08/2020, 11/10/2020 Influenza Vaccine (#1) 2024 , 05/07/2021, 11/15/2016 Cervical Cancer Screening 05/07/2026 HPV/Cotest 05/07/2026 05/07/2021 Pap Smear 05/07/2026 05/07/2021, 05/07/2021 DTaP/Tdap/Td Vaccines (2 - T d or Tdap) 07/11/2027 07/11/2017 Colonoscopy 11/11/2027 11/10/2017 Colorectal Cancer Screening 11/11/2027 HIB Vaccines Aged Out No longer eligi ble based on patient's age to complete this topic HPV Vaccines Aged Out No longer eligi ble based on patient's age to complete this topic IPV Vaccines Aged Out No longer eligi ble based on patient's age to complete this topic Meningococcal Vaccine Aged Out No sravanthi shelyl eligible based on patient's age to complete this topic RSV under 20 months Aged Out No longe r eligible based on patient's age to complete this topic Rotavirus Vaccines Aged Out No longer eligible based on patient's age to complete this topic Procedures Procedure Name Priority Date/Time Associated Diagnosis Comments HPV MRNA E6/E7 Routine 05/07/2021 9:48 AM EDT PAP/HPV Routine 05/07/2021 MAMMOGRAPHY Routine 04/27/2021 COLONOSCOPY Routine 11/10/2017 11:13 AM EDT from Last 3 Months or Most Recently Relevant to Health Maintenance Results * HPV mRNA E6/E7 (05/07/2021 9:48 AM EDT) Pathologist [facility] HPV nRNA E6/E7 Not Detected Not Detected [facility] Comment: Methodology: Director Of Video Analytics-Mediated Amplification This assay detects E6/E7 viral messenger RNA (mRNA) from 14 high-risk HPV types (16,18,31,33,35,39,45,51,52,56,58,59,66,68). ? The analytical performance characteristics of this assay have been determined by [employer]. The modifications have not been cleared or approved by the FDA. This assay has been validated pursuant to the CLIA regulations and is used for clinical purposes. ?? For additional information, please refer to http://education.1Rebel.Froont/faq/RZY848d1 (This link if provided for information/ educational purposes only.) 05/07/2021 9:48 AM EDT us Mari Pickett CNM LAB BLOOD ORDERABLES Ana Luisa l Result [facility] [address] * Pap Smear (05/07/2021) Pap smear Perform us Historical Provider MD HEALTH MAINTENANCE Final Result * Mammography (04/27/2021) Mammogram Perform Anatomical Region Laterality Modality Other us Historical Provider HEALTH MAINTENANCE Final Result * Colonoscopy (11/10/2017 11:13 AM EDT) Colonoscopy Normal Normal Narrative Simin Osorio - 11/10/2017 11:13 AM EDT Recommended 10 year follow up Historical Provider HEALTH MAINTENANCE Edited Result - Final from Last 3 Months or Most Recently Relevant to Health Maintenance Insurance [facility] PLAN N PARTIAL HSN PARTIAL Care Teams Parking Lot Laborer Relationship Specialty Start Date End Date Isabel Dunlap MD [address] [place] [id number] PCP - General Family Medicine 01/09/19
== END 2024-09-10 09:18 | disposition home or self-care (01) ==
LOC: HO.LAB 09:17
PROVIDERS: PCP Internal Medicine Endocrinology, Diabetes & Metabolism; Visit Provider Internal Medicine Endocrinology, Diabetes & Metabolism
DX: Z13.89 Encounter for screening for other disorder (principal)

== ENCOUNTER 2024-09-12 11:26 | Outpatient (REF) | payer OTHER, SELFPAY ==
[2024-09-12 12:18] LABS: Creatinine, mg/dL 33.61
[2024-09-12 12:47] LABS: Creatinine, 24Hr Urine 0.6 G/Day (1.0-2.0); Total Volume 24 Hour Urine 1925 mL
--- OUTSIDE RECORDS SUMMARY | 2024-09-12 13:19 | XMS_ITS | Clinical Summary ---
Author Organization [facility] Address [address] [facility] [address]t [place] [address] Care Team Providers Care Chief Deputy Name Role Phone Isabel Dunlap MD Primary [...] topic Meningococcal Vaccine Aged Out No sravanthi shelly eligible based on patient's age to complete [...] mRNA E6/E7 (05/07/2021 9:48 AM EDT) Pathologist [facility] HPV nRNA E6/E7 Not Detected Not Detected [facility] Comment: Methodology: Mixed Livestock Farmer-Mediated Amplification This assay detects E6/E7 viral messenger RNA (mRNA) from 14 high-risk HPV types (16,18,31,33,35,39,45,51,52,56,58,59,66,68). ? The analytical performance characteristics of this assay have been determined by [employer]. The modifications have not been cleared or approved by the FDA. This assay has been validated pursuant to the CLIA regulations and is used for clinical purposes. ?? For additional information, please refer to http://education.3D Forms.CoTweet/faq/QSE585f7 (This link if provided for information/ educational purposes only.) 05/07/2021 9:48 AM EDT us Mari Pickett CNM LAB BLOOD ORDERABLES Ana Luisa l Result [facility] [address] * Pap Smear (05/07/2021) Pap smear [...] Most Recently Relevant to Health Maintenance Insurance [facility] Address: [address] [address] N PARTIAL HSN PARTIAL Care Teams Chief Deputy Relationship Specialty Start Date End Date Isabel Dunlap MD [address] [place] [id number] PCP - General Family Medicine 01/09/19
--- OUTSIDE RECORDS SUMMARY | 2024-09-12 13:19 | XMS_ITS | Clinical Summary ---
Author Organization [facility] Address [address] [place] [address] Care Team Providers Care Clerical Grader Name Role Phone Anika Gamble DMD Primary Care Provider [phone] Source Comments PLEASE NOTE, if this patient [...] 2006 Imm-Zoster, Recombinant (1 of 2) 2011 [id number]-[id number] ( season) 2024 021, 11/10/2020 Imm-Influenza (#1) 2024 11/15/2016 Alcohol and Drug Screen 08/08/2024 Depression Annual Screen 08/08/2024 Imm-DTaP/Tdap/Td (2 - Td or Tdap) 07/11/2027 017 Cervical Ablation/Cold-Knife Conization Discontinued Cervical Cryotherapy Discontinued Colposcopy Discontinued Endometrial Biopsy Discontinued Excision/Leep Discontinued HPV Genotyping Discontinued Vaginal Pap Discontinued Vulvoscopy Discontinued Insurance HEALTH SAFETY NET DENTAL [employer] [facility] Member Subscriber Plan / Payer (Ef fective 2020-Present) Name:Sunny Perea Relation to Subscriber:Self Name:Sunny Perea Payer ID:[id number] Type:Indemnity Address: [facility] [address] [place] [address] Care Teams Clerical Grader Relationship Specialty Start Date End Date Anika Gamble DMD [address] [place] [address] PCP - General 04/19/19
--- OUTSIDE RECORDS SUMMARY | 2024-09-12 13:20 | XMS_ITS | Clinical Summary ---
Author Organization [facility] it[facility] Address [address] [place] [address] Care Team Providers Care Gelatin Powder Mixer Name Role Phone Unavailable Primary Care Provider [...]
--- OUTSIDE RECORDS SUMMARY | 2024-09-12 13:20 | XMS_ITS | Encounter Summary ---
Author Organization [facility] Address [address] [facility] [address]t [place] [address] Care Team Providers Care College Physics Instructor Name Role Phone Isabel Dunlap MD Primary Care Provider + Encounter Details Date Type Department Care Team (Late st Contact Info) Description 01/26/2023 Abstract [facility] [address] [place], [place] [phone] Isabel Dunlap MD [address] [place], [place] [phone] Social History Tobacco Use Types Packs/Day Years [...] on filedocumented in this encounter Care Teams College Physics Instructor Relationship Specialty Start Date End Date Isabel Dunlap MD [address] [place], [place] [phone] PCP - General Family Medicine 01/09/19 documented as of this encounter
[2024-09-14 15:34] LABS: Calcium, 24 Hr Urine 71 mg/24 h; Calcium/Creatinine Ratio 112 mg/g creat (30-275); Creatinine 24Hr Urine 0.64 g/24 h (0.50-2.15)
== END 2024-09-12 11:27 | disposition home or self-care (01) ==
LOC: HO.LNP 11:26
PROVIDERS: Visit Provider Internal Medicine Endocrinology, Diabetes & Metabolism
DX: M81.0 Age-related osteoporosis without current pathological fracture (principal)
CPT/HCPCS: 82340; 82570

== ENCOUNTER 2024-09-19 08:10 | Outpatient (AMB) | payer OTHER, SELFPAY ==
--- NOTE | 2024-09-19 08:11 | A.OFFVIS_ITS ---
Vital Signs 09/19/24 08:17 Height 4 ft 11.69 in Weight 110 lb 7.225 oz BMI 21.8 BP 98/68 Blood Pressure Location Rt brachial Position Sitting Pulse 79 Pulse Source Pulse Oximeter Pulse Oximetry (%) 98 Oxygen Delivery Method Room Air Intake Visit Reasons: f/u osteoporosis Intake Note: Patient present today for Osteoporosis follow up. Foundry Tender Required: Yes Foundry Tender Services: Foundry Tender Present Foundry Tender Name: darion [id number] Allergies No Known Allergies Allergy (Verified 09/19/24 08:20) Medication List - Last Reconciled 09/19/24 by Gerard Miller MD acetaminophen (Tylenol Extra Strength) 500 mg PO Q6H PRN acetaminophen 325 mg PO QID PRN calcium citrate-vitamin D2 250 mg-2.5 mcg (100 unit) (Oskar-Citrate) 2 tabs PO BID 30 days cholecalciferol (vitamin D3) 50 mcg PO DAILY 30 days cyclobenzaprine 5 mg PO Q8H PRN 5 days lidocaine 5% (Lidoderm) 1 patch topical DAILY PRN MDD remove after 12 hours loratadine (Claritin) 10 mg PO DAILY PRN naproxen 500 mg PO BID PRN 10 days pantoprazole 20 mg PO DAILY PRN polyethylene glycol 3350 (Miralax) 17 grams PO DAILY PRN HPI Comments Details: 64 YO Female with PMHx NTMNG and Osteoporosis who is seen in F/U Osteoporosis will also be addressed. She was previously followed by Dr. Vogt.. 2) Osteoporosis: First diagnosed in 2020 after she suffered a fall and MRI revealed a compression fracture of the spine. She had a DEXA completed which revealed severe osteoporosis at all sties. She was started on fosamax by her PCP and used 1 dose, but was unable to tolerate this due to GI distress. No history of pathologic fracture or ONJ. Has 1-2 servings of dietary calcium per day in the form of oat milk. She is lactose intolerant. Stopped taking her Calcium supplement as it was irritating her stomach. Takes 50,000 IU twice a week Vitamin D. Uses daily PPI. Denies ever using anticoagulant, antiepileptic or glucocorticoid medication. Does weight bearing exercise 5 days per week in the form of walking for 1 hour every day.. Fracture history: Suffered a compression fracture of the spine. Height loss: Denies COMMISSION SPECIALIST history: Menarche was age 13. Menses were regular. . She breastfed for 1 year in total. Menopause was age 45. She never used HRT. Denies history of Kidney stones. Has family history of Osteoporosis and a hip fracture in her Mother. UTD on dental cleanings and sees dentist every 6 months. No planned upcoming dental work or extractions. DXA: 05/21/2021 FINDINGS: AP SPINE L1-L4: BMD 0.572 g/cm2, Z-score -3.4, T-score -5.1, osteoporosis. LEFT FEMUR, NECK: BMD 0.532 g/cm2, Z-score -2.1, T-score -3.6, osteoporosis. LEFT FEMUR, TOTAL: BMD 0.500 g/cm2, Z-score -2.7, T-score -4.0, osteoporosis. Thyroid US: 03/24/2021 Right Thyroid Lobe: 4.2 x 1.9 x 1.5 cm, volume 6.3 mL. Previously it measured 4.8 x 1.9 x 1.5 cm and volume 7.3 mL. Parenchyma: The gland echotexture is homogeneous. Thyroid vascularity is normal. Left Thyroid Lobe: 4.3 x 1.7 x 1.4 cm, volume 5.4 mL. Previously it measured 4.7 x 1.7 x 1.5 cm and volume 6.2 mL. Parenchyma: The gland echotexture is homogeneous. Thyroid vascularity is normal. Isthmus: 0.2 cm in maximum AP dimension. Estimated total number of nodules greater than or equal to 1 cm: 2. Business Services Clerk nodules are described as follows: 1. Location: Upper pole. Previously measured 1.1 x 0.5 x 0.6 cm and volume 0.17 mL. ?? ? Size: 1.1 x 0.6 x 0.4 cm, volume 0.15 mL. ?? ? Nodule characteristics: ?? ? Composition: Solid (2). ?? ? Echogenicity: Hypoechoic ?? ? Shape: Wider ?? ? Margins: Smooth (0). ?? ? Echogenic Foci: None (0). ?? ? ACR TI-RADS total points: 4 ?? ? ACR TI-RADS category: 4 2. Location: Right midpole. ?? ? Size: 0.4 x 0.5 x 0.3 cm, volume 0.04 mL. Previously it measured 0.4 x 0.3 x 0.5 cm and volume 0.03 mL. ?? ? Nodule characteristics: ?? ? Composition: Solid (2). ?? ? Echogenicity: Isoechoic (1). ?? ? Shape: Wider ?? ? Margins: Smooth (0). ?? ? Echogenic Foci: None (0). ?? ? ACR TI-RADS total points: 3 ?? ? ACR TI-RADS category: 3 3. Location: Right midpole. ?? ? Size: 0.4 x 0.3 x 0.3 cm, volume 0.02 mL. ?? ? Nodule characteristics: ?? ? Composition: Solid/almost completely solid (2). ?? ? Echogenicity: Isoechoic (1). ?? ? Shape: Wider ?? ? Margins: Smooth (0). ?? ? Echogenic Foci: None (0). ?? ? ACR TI-RADS total points: 3 ?? ? ACR TI-RADS category: 3 4. Location: Right lower pole. ?? ? Size: 0.4 x 0.4 x 0.3 cm, volume 0.03 mL. Previously it measured 0.5 x 0.3 x 0.3 cm and volume 0.02 mL. ?? ? Nodule characteristics: ?? ? Composition: mostly solid (2). ?? ? Echogenicity: Isoechoic (1). ?? ? Shape: Wider ?? ? Margins: Smooth (0). ?? ? Echogenic Foci: None (0). ?? ? ACR TI-RADS total points: 3 ?? ? ACR TI-RADS category: 3 There is a small nodule in the left midpole measuring 1.5 cm with total points of 3 and TI-RADS category 3. NODES: No lymphadenopathy is seen in the tissue surrounding the thyroid gland. Labs: Laboratory Tests 11/09/21 02/11/22 02/11/22 12:24 09:00 09:00 Sodium 142 Potassium 4.6 Creatinine 0.79 Estimated GFR > 60 Calcium Albumin 4.2 25-OH Vitamin D Total 23.7 TSH Free T4 PTH Intact 44 Calcium (PTH Intact) 9.8 IgA 306 Endomysial Ab Titer Endomysial IgA Ab Tiss Transglutamin IgA <1.0 Tiss Transglutamin IgG 07/10/22 10/28/22 10/28/22 09:52 14:00 14:00 Sodium 141 Potassium 4.4 Creatinine 0.75 Estimated GFR > 60 Calcium 9.7 D Albumin 4.4 25-OH Vitamin D Total 34.5 TSH 1.20 Free T4 1.15 PTH Intact 59 Calcium (PTH Intact) 7.1 L IgA Endomysial Ab Titer TNP Endomysial IgA Ab Negative Tiss Transglutamin IgA Tiss Transglutamin IgG <1.0 Secondary workup for osteoporosis was negative. Except for low calcium intake. Taking calcium citrate 500 mg BID . No fx since last visit . 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 Vitamin D deficiency Surgical History Hx of section Family History Father Pulmonary disease Mother No known health problems Fracture of bone due to accidental fall Social History Alcohol intake: current Alcohol intake frequency: does not drink Patient Tobacco Use Status: Never used Tobacco Physical Exam Vital Signs: Last Vital Signs Pulse 79 09/19/24 08:17 BP 98/68 09/19/24 08:17 Pulse Ox 98 09/19/24 08:17 Oxygen Delivery Method Room Air 09/19/24 08:17 BMI result Body Mass Index 21.8 Assessment & Plan Assessment & Plan (1) Osteoporosis: Code(s): M81.0 - Age-related osteoporosis without current pathological fracture Category: Medical Plan: This a 64-year-old female with a history of severe osteoporosis and history of compression fracture found to have low urinary calcium suggestive of malabsorption of calcium. Patient is a very high risk for subsequent fracture . Plan is to the calcium supplementation to 600 mg TID and use Viactiv . Would recheck 24 hour urine for calcium and creatinine in 2 months . Would also consider starting anabolic therapy like Evenity considering degree of osteoporosis and previous fracture Orders: Orders Calcium, 24 Hr Ur 2 Months M81.0 - Age-related osteoporosis without current pathological fracture Creatinine, 24 Hr Group 2 Months M81.0 - Age-related osteoporosis without current pathological fracture Medications: New romosozumab-aqqg (Evenity) 210 mg (2.34 mL) subcut .qmonth 2.34 mL 11RF Coding Level of Care Code Est Pt Level 3 (47783) Diagnoses Osteoporosis M81.0
--- OUTSIDE RECORDS SUMMARY | 2024-09-19 08:14 | XMS_ITS | Clinical Summary ---
Author Organization [employer] Address [address] [facility] 7t [place] [address] Care Team Providers Care Education Analyst Name Role Phone Isabel Dunlap MD Primary [...] mRNA E6/E7 (05/07/2021 9:48 AM EDT) Pathologist [facility] HPV nRNA E6/E7 Not Detected Not Detected [facility] Comment: Methodology: Data Center Manager-Mediated Amplification This assay detects E6/E7 viral messenger RNA (mRNA) from 14 high-risk HPV types (16,18,31,33,35,39,45,51,52,56,58,59,66,68). ? The analytical performance characteristics of this assay have been determined by [employer]. The modifications have not been cleared or approved by the FDA. This assay has been validated pursuant to the CLIA regulations and is used for clinical purposes. ?? For additional information, please refer to http://education.Voucherlink.Adisn/faq/YTQ331c0 (This link if provided for information/ educational purposes only.) 05/07/2021 9:48 AM EDT us Mari Pickett CNM LAB BLOOD ORDERABLES Ana Luisa l Result [facility] [address] * Pap Smear (05/07/2021) Pap smear [...] Most Recently Relevant to Health Maintenance Insurance [facility] Address: [address] [address] [place] PARTIAL [place] PARTIAL Care Teams Education Analyst Relationship Specialty Start Date End Date Isabel Dunlap MD [address] [place] [id number] PCP - General Family Medicine 01/09/19
--- OUTSIDE RECORDS SUMMARY | 2024-09-19 08:15 | XMS_ITS | Clinical Summary ---
Author Organization [employer] [facility] Address [address] [place] [address] Care Team Providers Care Canopy Inspector Name Role Phone Unavailable Primary Care Provider Unavailabl e Social History Tobacco Use Types Packs/Day Years Used Date Smoking Tobacco: Never Assessed Comments Unknown Sex and Gender Information Value Date Recorded Sex Assigned at Not on file Legal Sex Female 5:50 PM EST Gender Identity Not on file Sexual Orientation Not on file Plan of Treatment Health Maintenance Due Date Last Done Comments Breast Cancer Screening 1961 DTaP,Tdap,and Td Vaccines (1 - Tdap) 1980 Cervical Cancer Screening: P ap Smear 1982 Zoster Vaccines (1 of 2) 2011 COVID-19 Vaccine ( - 2023-2 5 season) 2024 Influenza Vaccine (#1) 2024 [...]
--- OUTSIDE RECORDS SUMMARY | 2024-09-19 08:15 | XMS_ITS | Encounter Summary ---
Author Organization [facility] Address [address] [facility] 7t [place] [address] Care Team Providers Care Painter Name Role Phone Isabel Dunlap MD Primary Care Provider + Encounter Details Date Type Department Care Team (Late st Contact Info) Description 01/26/2023 Abstract [facility] [address] [place], [place] [phone] Isabel Dunlap MD [address], [place] [phone] Social History Tobacco Use Types Packs/Day Years [...] on filedocumented in this encounter Care Teams Painter Relationship Specialty Start Date End Date Isabel Dunlap MD [address], [place] [phone] PCP - General Family Medicine 01/09/19 documented as of this encounter
--- OUTSIDE RECORDS SUMMARY | 2024-09-19 08:16 | XMS_ITS | Patient Health Record ---
Author Organization [employer] [facility] Address [address] [place] [address] Care Team Providers Care Engine Dispatcher Name Role Phone Fabi HURST, Isabel Primary Care Provider Unavail able Jorge Wolfe Jr Unavailable ALLERGIES No Known Allergies REASON FOR REFERRAL No Information MEDICATIONS Medication SIG (Take, Route, Frequency, Duration) Notes Start Date End Date Status Claritin 10 MG 1 tablet Orally Once a day for 30 day(s) Active Vitamin D-3 125 MCG (5000 UT) as directed Orally Active Omeprazole 20 MG 1 capsule 30 minutes before morning meal Orally Once a day for 30 day(s) Active Docusate Sodium 100 MG 1 capsule as need ed Orally Once a day for 30 day(s) Active IMMUNIZATIONS Vaccine Route Administration Date Status Comme nts Influenza Unknown 05/27/2021 Administered SOCIAL HISTORY Tobacco Use: Social History Observation Description Date Details (start date - stop date) Never Smoker NA - NA Sex Assigned At : Social History Observation Description Sex Assigned At Unknown Tobacco Use/Smoking Question Answer Notes Patient is a nonsmoker Alcohol Screen Question Answer Notes Did you have a drink containing alcohol in the p ast year? No Points 0 Interpretation Negative PROBLEMS Problem Type ICD Code Onset Dates Problem Status W/U Status Risk SNOMED Code Notes Problem Generalized abdominal pain (R10.84) Active confirmed 048616911 PLAN OF TREATMENT Pending Test Test Name Order Date LIVER PROFILE 11/09/2021 LIPASE 11/09/2021 CBC w/o DIFF 11/09/2021 TRANSGLUTAMINASE AB IGA 11/09/2021 US ABD 11/09/2021 Insurance Providers Payer Name Payer Address Payer Phone Subscriber Number Group Number Insured Name Patient Relationship to Insured Coverage Start Date Coverage End Date [employer] [address] [address] [place], [place] [id number] MARIANNA LÓPEZ Self - patient is the insured 2 MEDICAL (GENERAL) HISTORY Medical History History ICD Code acid reflux seasonal allergies Surgical History Surgery Date(Month/Year)
[2024-09-19 08:17] VITALS: BP 98/68; PULSE 79; O2SAT 98; BMI 21.8
== END 2024-09-19 08:32 | disposition home or self-care (01) ==
PROVIDERS: PCP Internal Medicine; Visit Provider Internal Medicine Endocrinology, Diabetes & Metabolism
DX: M81.0 Age-related osteoporosis without current pathological fracture (principal)
CPT/HCPCS: 99213

== ENCOUNTER → 2024-09-19 08:10 | Outpatient (BNVA) | payer OTHER, SELFPAY | PROVIDERS: PCP Internal Medicine; Visit Provider Internal Medicine Endocrinology, Diabetes & Metabolism | DX: M81.0 Age-related osteoporosis without current pathological fracture (principal) | CPT/HCPCS: 99212 ==

== ENCOUNTER 2025-03-14 11:42 | Outpatient (REF) | payer OTHER, SELFPAY ==
--- OUTSIDE RECORDS SUMMARY | 2025-03-14 12:17 | XMS_ITS | Clinical Summary ---
Author Organization [facility] Address [address] [place] [address] Care Team Providers Care Foreman/Pile Driving And Erection Name Role Phone Anika Gamble DMD Primary Care Provider [phone] Source Comments PLEASE NOTE, if this patient is a minor, it may be UNLAWFUL to discuss sensitive information that is contained in these records (such as FAMILY PLANNING, MENTAL HEALTH or SUBSTANCE ABUSE) with the minor patient's parent or other person without the patient's specific authorization.[facility] Immunizations Immunization Administration Dates Next Due Moderna COVID-19 Vaccine, [...] Health Maintenance Due Date Last Done Comments Anxiety Screening 1961 HPV Screening 1961 Hepatitis C Screening 1961 Lipid Screening 1961 Pap + HPV 1961 Tobacco Screening 1961 HIV Screening 1976 Hypertension Screening (#1) 1979 Cervical Cancer Screening 1982 Pap Smear 1982 Breast Cancer Screening (Mammogram) 2001 CT Colonography 2006 Colonoscopy 2006 Colorectal Cancer Screening 2006 FIT/gFOBT 2006 Fecal DNA 2006 Flexible Sigmoidoscopy 2006 Imm-Pneumococcal 50+ (1 of 1 - PCV) 2011 Imm-Zoster, Recombinant (1 of 2) 2011 [id number] (3 - season) 2024 021, 11/10/2020 Alcohol and Drug Screen 08/08/2024 Depression Annual Screen 08/08/2024 Imm-Influenza (#1) 2025 11/15/2016 Imm-DTaP/Tdap/Td (2 - Td or Tdap) 07/11/2027 017 Diabetes Screening 02/25/2028 02/24/2025, 0 02/22/2025, 10/31/2022, Additional history exists Cervical Ablation/Cold-Knife Conization Discontinued Cervical Cryotherapy Discontinued Colposcopy Discontinued Endometrial Biopsy Discontinued Excision/Leep Discontinued HPV Genotyping Discontinued Vaginal Pap Discontinued Vulvoscopy Discontinued Insurance [employer] [facility] Member Subscriber Plan / Payer (Ef fective 2020-Present) Name:Sunny Perea Relation to Subscriber:Self Name:Sunny Perea Payer ID:[id number] Type:Indemnity Address: [facility] [address] [place] [address] Care Teams Foreman/Pile Driving And Erection Relationship Specialty Start Date End Date Anika Gamble DMD [address] [place] [address] PCP - General 04/19/19
--- OUTSIDE RECORDS SUMMARY | 2025-03-14 12:17 | XMS_ITS | Patient Health Record ---
Author Organization [facility] Address [address] [place] [address] Care Team Providers Care Control Systems Developer Name Role Phone Fabi HURST, Isabel Primary Care Provider Unavail able Jorge Wolfe Jr Unavailable [phone] Allergies No Known Allergies Reason For Referral No Information Medications Medication SIG (Take, Route, Frequency, Duration) Notes [...] Once a day for 30 day(s) Active Immunizations Vaccine Route Administration Date Status Comme nts Influenza Unknown 05/27/2021 Administered Social History Tobacco Use: Social History Observation Description Date Details (start date - stop date) Never Smoker NA - NA Tobacco Use/Smoking Question Answer Notes Patient is a nonsmoker Alcohol Screen Question Answer Notes Did you have a drink containing alcohol in the p ast year? No Points 0 Interpretation Negative Problems Problem Type SNOMED Code ICD Code Onset Dates Problem Status W/U Status Risk Notes Problem [id number] Generalized abdominal pain (R10.84) Active confirmed Plan Of Treatment Pending Test Test Name Order Date LIVER PROFILE 11/09/2021 LIPASE 11/09/2021 CBC w/o DIFF 11/09/2021 TRANSGLUTAMINASE AB IGA 11/09/2021 US ABD 11/09/2021 Insurance Providers Payer Name Payer Address Payer Phone Subscriber Number Group Number Insured Name Patient Relationship to Insured Coverage Start Date Coverage End Date [facility] [address] [address] [place], [place] [phone] [id number] MARIANNA LÓPEZ Self - patient is the insured 2 Medical (General) History Medical History History ICD Code acid reflux seasonal allergies Surgical History Surgery Date(Month/Year)
--- OUTSIDE RECORDS SUMMARY | 2025-03-14 12:17 | XMS_ITS | Clinical Summary ---
Author Organization [employer] Address [address] [facility] [address] 7[address] [place] [address] Care Team Providers Care Microsoft Solutions Architect Name Role Phone Isabel Dunlap MD Primary Care Provider + Allergies Active Allergy Reactions Criticality Noted Date Comments Lactose 03/03/2021 Other reaction(s): Rash, Rash Medications docusate sodium (Colace) 100 MG capsule Take 1 capsule by mouth every 12 (twelve) hours. 03/04/20 21 Active sennosides (Senokot) 8.6 MG tablet Take 1 tablet by mouth every 12 (twelve) hours. 03/04/20 21 Active simethicone (Mylicon) 80 MG chewable tablet Chew every 8 (eight) hours. 03/04/20 21 Active omeprazole (PriLOSEC) [address] capsule Take 1 capsule by mouth Once per day. Do not crush or chew. Active acetaminophen (Tylenol) 500 MG tablet Take 2 tablets by mouth if needed in the morning and at bedtime for mild pain. Active simethicone (Mylicon,Gas-X) 180 MG capsuleIndicati ons:Bloating Take 1 capsule (180 mg) by mouth if needed in the morning, at noon, in the evening, and at bedtime for flatulence. 30 capsule 2 03/13/20 25 Active polyethylene glycol, PEG, 3350 (MiraLax) 17 GM/SCOOP powderIndicatio ns:Slow transit constipation Take 17 g by mouth Once per day. 527 g 2 03/13/20 25 025 Active acetaminophen (Tylenol) 325 MG capsule 1-2 caps po qid prn pain 03/06/20 21 025 Discontinued(M ed list cleanup (will not trigger notification to Pharmacy)) Diclofenac Sodium 1 % gel Apply topically every 8 (eight) hours. 03/06/20 025 Discontinued(M ed list cleanup (will not trigger notification to Pharmacy)) pantoprazole (ProtoNix) 40 MG EC tablet Take 1 tablet by mouth every 12 (twelve) hours. 02/16/20 21 025 Discontinued(M ed list cleanup (will not trigger notification to Pharmacy)) triamcinolone (Nasacort Allergy 24HR) 55 MCG/ACT nasal inhaler Administer 2 sprays into affected nostril(s) at bed time. 10/17/19 22 025 Discontinued(M ed list cleanup (will not trigger notification to Pharmacy)) cetirizine (ZyrTEC) 10 MG tabletIndicatio ns:Allergic rhinitis, unspecified seasonality, unspecified trigger Take 1 tablet (10 mg) by mouth in the morning. 90 tablet 3 08/28/19 23 025 Discontinued(M ed list cleanup (will not trigger notification to Pharmacy)) linaCLOtide (Linzess) 145 MCG capsuleIndicati ons:Irritable bowel syndrome with constipation Take 1 capsule (145 mcg) by mouth before breakfast. take 1 capsule by oral route every day on an empty stomach at least 30 minutes before 1st meal of the day 90 capsule 3 01/25/20 23 025 Discontinued(M ed list cleanup (will not trigger notification to Pharmacy)) polyethylene glycol, PEG, 3350 (MiraLax) 17 GM/SCOOP powderIndicatio ns:Slow transit constipation Take 17 g by mouth Once per day. 527 g 2 02/20/20 25 025 Discontinued(R eorder (will not trigger notification to Pharmacy)) docusate sodium (Colace) 100 MG capsuleIndicati ons:Slow transit constipation Take 1 capsule (100 mg) by mouth 2 times daily. 60 capsule 02/20/20 025 Discontinued(M ed list cleanup (will not trigger notification to Pharmacy)) Active Problems Problem Noted Date Diagnosed Date Ileus 03/13/2025 Assessment & Plan (03/13/2025 12:25 PM EDT): Now resolved Bloating 03/13/2025 Heartburn 02/19/2025 Assessment & Plan (02/19/2025 4:15 PM EDT): I advise patient to avoid NSAIDs, spicy and acid food, I advise to eat at the same time every day, I advise to elevate the head of the bed and take medications as prescribe Slow transit constipation 02/19/2025 Assessment & Plan (02/19/2025 4:16 PM EDT): I advise increase water and fiber on er diet I will prescribe for patient miralaax and colace Patient will call GI office for a f/u appointment Adenoma of left adrenal gland 07/15/2022 Asymptomatic [...] sense altered 12/28/2017 Unintentional weight loss 12/28/2017 Encounters Date Type Department Care Team Description 03/13/2025 9:30 AM EDT Office Visit [facility] [address] [place] [address] Madison Milton MD Ileus ([facility] Slow transit constipation; Irritable bowel syndrome with constipation; Bloating 03/13/2025 Travel 03/12/2025 Telephone [facility] [address] [place] [address] Isabel Dunlap MD chart prep 03/07/2025 Telephone [facility] [address] [place], [place] [phone] Maddy Miller PharmD Care Coordination 02/28/2025 Patient Outreach [facility] [address] [place] [phone] Isabel Dunlap MD Care Coordination (CHW outreach for SDOH PT-1 and food needs-LVM ) 02/27/2025 Patient Outreach [address] [phone] Isabel Dunlap MD Transition Of Care (Tcm) (HDF- Scheduled SDOH screening is positive) 02/27/2025 Telephone [facility] [address] [place] [phone] Isabel Dunlap MD Hospital Follow-up 02/19/2025 2:20 PM EDT Office Visit [facility] [address] [place] [phone] Madison Milton MD Slow transit constipation (Primary Dx); Heartburn 02/19/2025 Travel from Last 3 Months Immunizations Immunization Administration Dates Next Due Influenza injectable quadrivalent preservative f ree 05/07/2021,11/15/2016 Influenza, IIV3, injectable 05/27/2021 Moderna Covid-19 Vaccine 12+ 12/08/2020,11/11/19 21 Tdap 07/11/2017 Social History Tobacco Use Types Packs/Day Years Used Date Smoking Tobacco: Never Passive Smoke Exposure: Never Smokeless Tobacco: Never Tobacco Cessation:Counseling Given: Not Answered Alcohol Use Standard Drinks/Week Comments Never 0 (1 standard drink = 0.6 oz pur e alcohol) Depression Answer Date Recorded Patient Health Questionnaire-9 Score 0 03/13/2025 Patient Health Questionnaire-9 Score 0 03/13/2025 Last PHQ-9: Questionnaire Data Not on file 0 03/13/2025 Housing Stability Answer Date Recorded What is your housing situation today? I have gretchenvito melvin 02/27/[address] you li ve. Do you have problems with any of the following? None of the above 02/27/2025 Food Insecurity Answer Date Recorded Within the past 12 months, y ou worried that your food would run out before you got money to buy more: Never True 02/27/2025 Within the past 12 months,th e food you bought just didn't last and you didn't have enough money to get more: Never True Transportation Answer Date Recorded In the past 12 months, has l ack of transportation kept you from medical appts, meetings, work or from getting things needed for daily living? Yes, it has kept me from medical appointments or getting medications.;Yes, it has kept me from non-medical meetings, work, or getting things that I need 02/27/2025 Utilities Answer Date Recorded In the past 12 months, has t he electric, gas, oil or water company threatened to shut off services in your home? No 02/27/2025 Depression Answer Date Recorded Patient Health Questionnaire-2 Score 0 03/13/2025 Internet Access Answer Date Recorded Internet Access Q1 Yes 02/27/2025 Internet Access Q2 Not on file 02/27/2025 Comments Unknown Sex and Gender Information Value Date Recorded Sex Assigned at Female 06/07/2022 10:30 AM EDT Legal Sex Female 10:30 AM EDT Gender Identity Female 06/07/2022 10:30 AM EDT Sexual Orientation Straight 06/07/2022 10 :30 AM EDT Last Filed Vital Signs Vital Sign Reading Time Taken Comments Blood Pressure 100/79 03/13/2025 9:46 AM EDT Pulse 79 03/13/2025 9:46 AM EDT Temperature 36.7 C (98 F) 03/13/2025 9:46 AM EDT Respiratory Rate 16 03/13/2025 9:46 AM EDT Oxygen Saturation 98% 02/19/2025 2:33 PM EDT Inhaled Oxygen Concentration - - Weight 47.8 kg (105 lb 6.4 oz) 03/13/2025 9:46 A M EDT Height 153 cm (5' 0.24 ) 03/13/2025 9:46 AM EDT Body Mass Index 20.42 03/13/2025 9:46 AM EDT Plan of Treatment Upcoming Encounters Date Type Department Care Team (Late st Contact Info) Description 05/24/2025 9:45 AM EDT Office Visit [facility] [address] [place] [address] Isabel Dunlap MD [address] [place] [address] Health Maintenance Due Date Last Done Comments CT Colonography 1961 FIT DNA/Cologuard 1961 FIT 1961 FOBT 1961 HIV Screening 1961 Sigmoidoscopy 1961 Hepatitis C Screening 1979 Hepatitis A Vaccines [...] season) 2024 12/08/2020, 11/10/2020 Influenza Vaccine (#1) 2025 , 05/07/2021, 11/15/2016 SDOH Screening 02/27/2026 02/27/2025 Alcohol/Substance Use Screening 03/13/2026 03/13/2025 Depression Screening 03/13/2026 03/13/2025, 03/13/2025 Disability Screening 03/13/2026 03/13/2025 Tobacco Screening 03/13/2026 03/13/2025 Cervical Cancer Screening 05/07/2026 HPV/Cotest 05/07/2026 05/07/2021 [...] patient's age to complete this topic Meningococcal B Vaccine Aged Out No l onger eligible based on patient's age to complete [...] HPV mRNA E6/E7 (05/07/2021 9:48 AM EDT) HPV nRNA E6/E7 Not Detected Not Detected [facility] Comment: Methodology: Hotel Desk Clerk-Mediated Amplification This assay detects E6/E7 viral messenger RNA (mRNA) from 14 high-risk HPV types (16,18,31,33,35,39,45,51,52,56,58,59,66,68). The analytical performance characteristics of this assay have been determined by [employer]. The modifications have not been cleared or approved by the FDA. This assay has been validated pursuant to the CLIA regulations and is used for clinical purposes. For additional information, please refer to http://education.[employer]brid[employer] Services.Watch-Sites/faq/GXP854k7 (This link if provided for information/ educational purposes only.) 05/07/2021 9:48 AM EDT us Mari KENNEDY LAB BLOOD ORDERABLES Ana Luisa valero Result [facility] [address] * Pap Smear (05/07/2021) Pap smear Perform us Historical Provider HEALTH MAINTENANCE Final Result * Mammography (04/27/2021) Mammogram Perform Anatomical Region Laterality Modality Other us Historical Provider HEALTH MAINTENANCE Final Result * Colonoscopy (11/10/2017 11:13 AM EDT) Colonoscopy Normal Normal Narrative Simin Osorio - 11/10/2017 11:13 AM EDT Recommended 10 year follow up Historical Provider HEALTH MAINTENANCE Edited Result - Final from Last 3 Months or Most Recently Relevant to Health Maintenance Insurance [facility] 3 Care Teams Microsoft Solutions Architect Relationship Specialty Start Date End Date Isabel Dunlap MD [address] [place] [phone] PCP - General Family Medicine 01/09/19
--- OUTSIDE RECORDS SUMMARY | 2025-03-14 12:17 | XMS_ITS | Clinical Summary ---
Author Organization [facility] Address [address] [place] [address] Phone Care Team Providers Care Sound Controller Name Role Phone Physician, No Pcp Primary Care Provider Unavaila ble Allergies No known active allergies Medications Gavilax 17 gram/dose oral powder Take 17 g by mouth 1 (one) time each day. 02/19/2025 Active docusate sodium (COLACE) 100 mg capsule Take 1 capsule (100 mg total) by mouth 2 (two) times a day. 02/19/2025 Active omeprazole (PriLOSEC) [address] capsule Take 1 capsule (40 mg total) by mouth 1 (one) time each day. Do not crush or chew. Active Active Problems Problem Noted Date Diagnosed Date Ileus ([facility] V24, [facility] V28) 02/22/2025 Encounters Date Type Department Care Team Description 02/22/2025 10:41 AM EDT - 02/25/2025 6:17 PM EDT Hospital Encounter [facility] Unit [address] [place] [address] Ulises Hurley MD Mohani, Priya, MD Zipagan, James T, MD Kela, Kashyap Devendrabhai, MD Slow transit constipation (Primary Dx); Ileus ([facility] V24, [facility] V28) Discharge Disposition: Home or Self Care from Last 3 Months Surgical History Surgery Date Site/Laterality Comments SECTION x 2 Medical History Medical History Date Comments Irritable bowel syndrome with constipation Osteoporosis Social History Tobacco Use Types Packs/Day Years Used Date Smoking Tobacco: Never Assessed Comments Unknown Sex and Gender Information Value Date Recorded Sex Assigned at Not on file Legal Sex Female 5:50 PM EST Gender Identity Not on file Sexual Orientation Not on file Obstetrics History Last Filed Vital Signs Vital Sign Reading Time Taken Comments Blood Pressure 131/56 02/25/2025 2:32 PM EDT Pulse 78 02/25/2025 2:32 PM EDT Temperature 36.6 C (97.8 F) 02/25/2025 2:32 PM EDT Respiratory Rate 18 02/25/2025 2:32 PM EDT Oxygen Saturation 98% 02/25/2025 2:32 PM EDT Inhaled Oxygen Concentration - - Weight 49.9 kg (110 lb) 02/22/2025 10:31 AM EDT Height 150 cm (4' 11.06 ) 02/22/2025 10:31 AM ED T Body Mass Index 22.18 02/22/2025 10:31 AM EDT Plan of Treatment Health Maintenance Due Date Last Done Comments Breast Cancer Screening 1961 Hepatitis A Vaccines (1 of 2 - Risk 2-dose series) 1980 Cervical Cancer Screening: P ap Smear 1982 Pneumococcal Vaccine: 50+ Years (1 of 1 - PCV) 2011 Zoster Vaccines (1 of 2) 2011 Hepatitis B Vaccines (1 of 3 - Risk 3-dose series) 2021 RSV Immunization Adult Patients (1 - Risk 60-74 years 1-dose series) 2021 COVID-19 Vaccine (3 - 2023-2 5 season) 2024 12/08/2020, 11/10/2020 Depression Screening 08/08/2024 Cholesterol Screening (Lipid Panel) 02/23/2025 Colorectal Cancer Screening: Colonoscopy 02/23/2025 HIV Screening 02/23/2025 Hepatitis C Screening 02/23/2025 Osteoporosis Screening (Bone Density Screening) 02/23/2025 Social Influencers of Health Screening 02/23/2025 Influenza Vaccine (#1) 2025 , 05/07/2021, 11/15/2016 DTaP,Tdap,and Td Vaccines (2 - Td or Tdap) 07/11/2027 07/11/2017 HIB Vaccines Aged Out No longer eligi [...] to complete this topic RSV Immunization Patients Under 20 months Aged Out No longer eligible b ased on patient's age to complete this topic Varicella Vaccines Aged Out No longer eligible based on patient's age to complete this topic Procedures Procedure Name Priority Date/Time Associated Diagnosis Comments MAGNESIUM Routine 02/25/2025 6:04 AM EDT LAVENDER - EDTA Routine 02/25/2025 6:03 AM EDT EXTRA TUBES Routine 02/25/2025 6:03 AM EDT PHOSPHORUS Routine 02/24/2025 5:38 AM EDT MAGNESIUM Routine 02/24/2025 5:38 AM EDT BASIC METABOLIC PANEL Routine 02/24/2025 5:38 AM EDT LAVENDER - EDTA Routine 02/24/2025 5:36 AM EDT EXTRA TUBES Routine 02/24/2025 5:36 AM EDT XR ABDOMEN 2 VIEWS Routine 02/23/2025 8: 53 AM EDT MR LUMBAR SPINE WO CONTRAST Routine 02/22/2025 8:47 PM EDT MR THORACIC SPINE WO CONTRAST Routine 02/22/2025 8:[address] ABDOMEN PELVIS W CONTRAST STAT 02/22/2025 12:35 PM EDT URINALYSIS WITH REFLEX MICROSCOPIC STAT 02/22/2025 10:41 AM EDT URINALYSIS WITH REFLEX MICROSCOPIC STAT 02/22/2025 10:41 AM EDT MAGNESIUM STAT Add-on 02/22/2025 10:39 AM EDT CBC WITH AUTO DIFFERENTIAL STAT 02/22/2025 10:39 AM EDT LIPASE STAT 02/22/2025 10:39 AM EDT COMPREHENSIVE METABOLIC PANEL STAT 02/22/2025 10:39 AM EDT CBC AND DIFFERENTIAL STAT 02/22/2025 10:39 AM EDT from Last 3 Months Results * Magnesium (02/25/2025 6:04 AM EDT) Only the most recent of3 resultswithin the time period is included. Magnesium 2.1 1.9 - 2.6 mg/dL LAB CHEMISTRY METHOD 02/25/2025 9:00 AM EDT [facility] Blood Venous blood specimen / Unknown Venipuncture / Unknown 02/25/2025 6:04 AM EDT 02/25/2025 6:51 AM EDT Guy Canchola MD LAB BLOOD ORDERABLES Final Re sult [facility] [address] [place] [address], [place] [phone] * Lavender tube (02/25/2025 6:03 AM EDT) Only the most recent of2 resultswithin the time period is included. Extra Tube Hold for add-ons. 02/25/2025 8:01 AM EDT [facility] Comment:Auto resulted. Blood Venous blood specimen / Unknown 02/25/2025 6:03 AM EDT 02/25/2025 6:52 AM EDT us Donte Garcia MD LAB BLOOD ORDERABLE S Final Result [facility] [address] [place] [address], [place] [phone] * Phosphorus (02/24/2025 5:38 AM EDT) Pathologist [facility] Phosphorus 3.5 2.5 - 4.5 mg/dL LAB CHEMISTRY METHOD 02/24/2025 7:03 AM EDT [facility] Blood Venous blood specimen / Unknown Venipuncture / Unknown 02/24/2025 5:38 AM EDT 02/24/2025 6:06 AM EDT Vicenta STEELE LAB BLOOD ORDERABLES Final Re sult Performing Organization Address City/[facility]/ZIP Co de Phone Number [facility] [address] [place] [address], [place] [phone] * (ABNORMAL) Basic metabolic panel (02/24/2025 5:38 AM EDT) [facility] Sodium 142 133 - 145 mmol/L LAB CHEMISTRY METHOD 02/24/2025 7:06 AM [facility] Potassium 4.1 3.5 - 5.5 mmol/L LAB CHEMISTRY METHOD 02/24/2025 7:06 AM [facility] Chloride 110 96 - 110 mmol/L LAB CHEMISTRY METHOD 02/24/2025 7:06 AM [facility] CO2 26 21 - 32 mmol/L LAB CHEMISTRY METHOD 02/24/2025 7:06 AM [facility] Anion Gap 6 3 - 11 LAB CHEMISTRY METHOD 02/24/2025 7:06 AM [facility] Glucose 77 70 - 100 mg/dL LAB CHEMISTRY METHOD 02/24/2025 7:06 AM [facility] BUN 6 5 - 25 mg/dL LAB CHEMISTRY METHOD 02/24/2025 7:06 AM EDT [facility] Creatinine 0.49(L) 0.50 - 1.10 mg/dL LAB CHEMISTRY METHOD 02/24/2025 7:06 AM EDT [facility] eGFR 106 >=60 mL/min/1. 73m2 LAB CHEMISTRY METHOD 02/24/2025 7:06 AM EDT [facility] Comment:Calculation based on the Chronic Kidney Disease Epidemiology Collaboration (CKD-EPI) equation refit without adjustment for race. BUN/Creatinine Ratio 12.2 LAB CHEMISTRY METHOD 02/24/2025 7:06 AM EDT [facility] Calcium 8.8 8.5 - 10.5 mg/dL LAB CHEMISTRY METHOD 02/24/2025 7:06 AM EDT [facility] Blood Venous blood specimen / Unknown Venipuncture / Unknown 02/24/2025 5:38 AM EDT 02/24/2025 6:06 AM EDT Vicenta STEELE LAB BLOOD ORDERABLES Final Re sult [facility] [address] [place] [address], * XR Abdomen 2 Views (02/23/2025 8:53 AM EDT) Anatomical Region Laterality Modality Body Radiographic Sarah ging 02/23/2025 8:55 AM EDT Impressions 02/23/2025 8:58 AM EDT Large amount of gas within large and small bowel without evidence of high-grade small bowel obstruction. When compared to the digital can top setter from CT 02/22/25 the amount of gas has decreased. -------- FINAL REPORT -------- Dictated By: Zac Alcantara Dictated Date: 02/23/2025 08:55 ET Assigned Physician: Zac Alcantara Reviewed and Electronically Signed By: Zac Alcantara Signed Date: 02/23/2025 08:58 ET Workstation ID: [id number] Transcribed By: Self Edit Transcribed Date: 02/23/2025 08:55 ET Narrative 02/23/2025 8:58 AM EDT EXAMINATION: ABDOMEN CLINICAL INFORMATION: Follow-up ileus COMPARISON: 03/03/21 TECHNIQUE: Supine and upright views of the abdomen FINDINGS: There is a large amount of gas within loops of large and small bowel throughout the abdomen and pelvis to the level of the rectum. No significant fluid levels. No definite bowel wall thickening or pneumoperitoneum. No evidence of an abnormal mass or collection. I suspect high-grade volume loss involving L1 and there is likely some volume loss of L4. No suspicious abnormality the visualized lower chest Procedure Note Zac Alcantara MD - 02/23/2025 EXAMINATION: ABDOMEN CLINICAL INFORMATION: Follow-up ileus COMPARISON: 03/03/21 TECHNIQUE: Supine and upright views of the abdomen FINDINGS: There is a large amount of gas within loops of large and small bowelthroughout the abdomen and pelvis to the level of the rectum. Nosignificant fluid levels. No definite bowel wall thickening orpneumoperitoneum. No evidence of an abnormal mass or collection. I suspect high-grade volume loss involving L1 and there is likely somevolume loss of L4. No suspicious abnormality the visualized lower chest IMPRESSION: Large amount of gas within large and small bowel without evidence ofhigh-grade small bowel obstruction. When compared to the digital scoutfrom CT 02/22/25 the amount of gas has decreased. -------- FINAL REPORT -------- Dictated By: Zac Alcantara Dictated Date: 02/23/2025 08:55 ET Assigned Physician: Zac Alcantara Reviewed and Electronically Signed By: Zac Alcantara Signed Date: 02/23/2025 08:58 ET Workstation ID: [id number] Transcribed By: Self Edit Transcribed Date: 02/23/2025 08:55 ET Vicenta STEELE IMG XR PROCEDURES Final Resul t * MR Lumbar Spine wo Contrast (02/22/2025 8:47 PM EDT) Anatomical Region Laterality Modality L-spine, Spine Magnetic Resonan ce 02/25/2025 11:1 4 AM EDT Impressions 02/25/2025 11:17 AM EDT Chronic compression fractures at L1, L3, and L4 with variable height loss most pronounced at L1. Slight retropulsion of the posterior superior aspect of L1 without significant spinal canal stenosis and lumbar spine. Please see separately dictated thoracic spine MRI for evaluation of that region. -------- FINAL REPORT -------- Dictated By: BARI COLEMAN Dictated Date: 02/25/2025 11:14 ET Assigned Physician: BARI COLEMAN Reviewed and Electronically Signed By: BARI COLEMAN Signed Date: 02/25/2025 11:17 ET Workstation ID: [id number] Transcribed By: Self Edit Transcribed Date: 02/25/2025 11:14 ET Narrative 02/25/2025 11:17 AM EDT PROCEDURE: Lumbar spine MRI INDICATION: Pain TECHNIQUE: Multiplanar, multisequence MRI of the Lumbar spine Without contrast. COMPARISON: 06/06/2021 CT FINDINGS: Lumbar lordosis is maintained. Chronic compression fractures at L1, L3, and L4 with variable height loss most pronounced at L1 where there is complete height loss centrally. Slight retropulsion of the posterior superior aspect of L1 without significant spinal canal stenosis. No acute fracture or suspicious marrow replacing lesion. Multilevel degenerative loss of normal disc height and signal with associated degenerative discogenic endplate change. Lower lumbar predominant degenerative facet arthritis. Conus medullaris is normal and terminates at L1. No epidural collection or mass is seen within the spinal canal. Paraspinal muscles are within normal limits. Visualized intra-abdominal and pelvic structures are notable for renal cysts. Findings by level: L1-2: No focal disc protrusion, foraminal stenosis, or spinal canal stenosis. L2-3: No focal disc protrusion, foraminal stenosis, or spinal canal stenosis. L3-4: No focal disc protrusion, foraminal stenosis, or spinal canal stenosis. L4-5: No focal disc protrusion, foraminal stenosis, or spinal canal stenosis. L5-S1: No focal disc protrusion, foraminal stenosis, or spinal canal stenosis. Procedure Note Bari Coleman MD - 02/25/2025 PROCEDURE: Lumbar spine MRI INDICATION: Pain TECHNIQUE: Multiplanar, multisequence MRI of the Lumbar spine Withoutcontrast. COMPARISON: 06/06/2021 CT FINDINGS: Lumbar lordosis is maintained. Chronic compression fractures at L1, L3, and L4 with variable height lossmost pronounced at L1 where there is complete height loss centrally.Slight retropulsion of the posterior superior aspect of L1 withoutsignificant spinal canal stenosis. No acute fracture or suspicious marrow replacing lesion. Multilevel degenerative loss of normal disc height and signal withassociated degenerative discogenic endplate change. Lower lumbar predominant degenerative facet arthritis. Conus medullaris is normal and terminates at L1. No epidural collectionor mass is seen within the spinal canal. Paraspinal muscles are within normal limits. Visualized intra-abdominaland pelvic structures are notable for renal cysts. Findings by level: L1-2: No focal disc protrusion, foraminal stenosis, or spinal canalstenosis. L2-3: No focal disc protrusion, foraminal stenosis, or spinal canalstenosis. L3-4: No focal disc protrusion, foraminal stenosis, or spinal canalstenosis. L4-5: No focal disc protrusion, foraminal stenosis, or spinal canalstenosis. L5-S1: No focal disc protrusion, foraminal stenosis, or spinal canalstenosis. IMPRESSION: Chronic compression fractures at L1, L3, and L4 with variable height lossmost pronounced at L1. Slight retropulsion of the posterior superioraspect of L1 without significant spinal canal stenosis and lumbar spine. Please see separately dictated thoracic spine MRI for evaluation of thatregion. -------- FINAL REPORT -------- Dictated By: BARI COLEMAN Dictated Date: 02/25/2025 11:14 ET Assigned Physician: BARI COLEMAN Reviewed and Electronically Signed By: BARI COLEMAN Signed Date: 02/25/2025 11:17 ET Workstation ID: [id number] Transcribed By: Self Edit Transcribed Date: 02/25/2025 11:14 ET Nichole STEELE IMG MRI PROCEDURES Final Resu lt * MR Thoracic Spine wo Contrast (02/22/2025 8:32 PM EDT) Anatomical Region Laterality Modality T-spine, Spine Magnetic Resonan ce 02/25/2025 11:1 7 AM EDT Impressions 02/25/2025 11:21 AM EDT Acute T11 superior endplate compression fracture with approximately 30% height loss. No retropulsion of bone towards the spinal canal or significant thoracic spinal canal stenosis. -------- FINAL REPORT -------- Dictated By: BARI COLEMAN Dictated Date: 02/25/2025 11:17 ET Assigned Physician: BARI COLEMAN Reviewed and Electronically Signed By: BARI COLEMAN Signed Date: 02/25/2025 11:21 ET Workstation ID: [id number] Transcribed By: Self Edit Transcribed Date: 02/25/2025 11:17 ET Narrative 02/25/2025 11:21 AM EDT PROCEDURE: Thoracic spine MRI INDICATION: Pain TECHNIQUE: Multiplanar, multisequence MRI of the thoracic spine Without contrast. COMPARISON: Radiograph 03/03/2021 FINDINGS: Exaggerated thoracic kyphosis centered at chronic T6 compression fracture. Chronic compression fractures at T3, T6, and T8 with variable height loss most pronounced at T6. Complete height loss at T6. Slight retropulsion of the posterior superior aspect of T6 towards the spinal canal, contacting the ventral cord, without spinal canal stenosis. Acute T11 superior endplate compression fracture with approximately 30% height loss. No significant retropulsion of bone towards the spinal canal. Multilevel degenerative loss of normal disc height and signal with associated degenerative discogenic endplate change. No focal disc protrusion or significant spinal canal stenosis. Thoracic cord is normal in signal and morphology. No epidural collection or mass is seen within the spinal canal. Multilevel degenerative thoracic facet arthritis without significant foraminal stenosis. Paraspinal muscles are within normal limits. Visualized intrathoracic and upper abdominal structures are normal. Procedure Note Bari Coleman MD - 02/25/2025 PROCEDURE: Thoracic spine MRI INDICATION: Pain TECHNIQUE: Multiplanar, multisequence MRI of the thoracic spine Withoutcontrast. COMPARISON: Radiograph 03/03/2021 FINDINGS: Exaggerated thoracic kyphosis centered at chronic T6 compressionfracture. Chronic compression fractures at T3, T6, and T8 with variable height lossmost pronounced at T6. Complete height loss at T6. Slight retropulsionof the posterior superior aspect of T6 towards the spinal canal,contacting the ventral cord, without spinal canal stenosis. Acute T11 superior endplate compression fracture with approximately 30%height loss. No significant retropulsion of bone towards the spinalcanal. Multilevel degenerative loss of normal disc height and signal withassociated degenerative discogenic endplate change. No focal discprotrusion or significant spinal canal stenosis. Thoracic cord is normal in signal and morphology. No epidural collectionor mass is seen within the spinal canal. Multilevel degenerative thoracic facet arthritis without significantforaminal stenosis. Paraspinal muscles are within normal limits. Visualized intrathoracic andupper abdominal structures are normal. IMPRESSION: Acute T11 superior endplate compression fracture with approximately 30%height loss. No retropulsion of bone towards the spinal canal orsignificant thoracic spinal canal stenosis. -------- FINAL REPORT -------- Dictated By: BARI COLEMAN Dictated Date: 02/25/2025 11:17 ET Assigned Physician: BARI COLEMAN Reviewed and Electronically Signed By: BARI COLEMAN Signed Date: 02/25/2025 11:21 ET Workstation ID: [id number] Transcribed By: Self Edit Transcribed Date: 02/25/2025 11:17 ET us Nichole STEELE IMG MRI PROCEDURES Final Resu lt * CT Abdomen Pelvis w Contrast (02/22/2025 12:35 PM EDT) Anatomical Region Laterality Modality Body Computed Tomogra phy 02/22/2025 12:5 8 PM EDT Impressions 02/22/2025 1:07 PM EDT Air and stool distended colon with mild air distention of the small bowel. Findings suggest ileus. Acute appearing T11 superior endplate compression fracture resulting in approximately 20% height loss. No significant retropulsion of bone towards spinal canal or significant bony spinal canal stenosis. Chronic appearing compression fractures at L1 and L4 with near complete height loss at L1 and slight retropulsion of the posterior superior aspect of the L1 vertebral bodies with spinal canal. No significant spinal canal stenosis. Unchanged, chronic L3 compression fracture. MRI could better assess age of compression fractures. -------- FINAL REPORT -------- Dictated By: BARI COLEMAN Dictated Date: 02/22/2025 12:58 ET Assigned Physician: BARI COLEMAN Reviewed and Electronically Signed By: BARI COLEMAN Signed Date: 02/22/2025 13:07 ET Workstation ID: [id number] Transcribed By: Self Edit Transcribed Date: 02/22/2025 12:58 ET Narrative 02/22/2025 1:07 PM EDT PROCEDURE: CT ABDOMEN/PELVIS INDICATION: Distention TECHNIQUE: CT of the abdomen and pelvis following the intravenous administration of 90cc Isovue 370. Multiplanar reformats. The examination was performed utilizing dose reduction techniques. Total DLP 286 COMPARISON: 06/06/2021 FINDINGS: LOWER THORAX: Bibasilar atelectasis. Small hiatal hernia HEPATOBILIARY: Subcentimeter hepatic cysts. No suspicious liver lesions. Gallbladder and biliary tree are within normal limits. SPLEEN: No splenomegaly. PANCREAS: No focal mass or ductal dilatation. ADRENALS: Unchanged left adrenal adenoma. KIDNEYS/URETERS: No hydronephrosis, stones, or solid mass. Scattered bilateral renal cysts. Focal cortical scarring at the right upper pole. PELVIC ORGANS/BLADDER: The uterus and adnexal structures are normal. Bladder is normal. PERITONEUM / RETROPERITONEUM: No ascites or free air. No retroperitoneal lymphadenopathy. VESSELS: Portal vein is patent. Abdominal aorta is normal in size. GI TRACT: Air and stool distended colon. Air-filled, mildly distended small bowel. No bowel obstruction or wall thickening. Medialized cecum. Appendix not visualized. No evidence of appendicitis around the cecum. BONES AND SOFT TISSUES: Unchanged, chronic L3 superior endplate compression fracture. Acute appearing compression fracture at the superior endplate of T11 resulting in approximately 20% height loss. Chronic appearing L1 compression fracture with complete height loss centrally and slight retropulsion of the posterior superior aspect of the vertebral body towards spinal canal. No significant bony spinal canal stenosis. Chronic appearing L4 vertebral body superior endplate compression fracture with approximately 40% height loss. Procedure Note Bari Coleman MD - 02/22/2025 PROCEDURE: CT ABDOMEN/PELVIS INDICATION: Distention TECHNIQUE: CT of the abdomen and pelvis following the intravenousadministration of 90cc Isovue 370. Multiplanar reformats. The examinationwas performed utilizing dose reduction techniques. Total DLP 286 COMPARISON: 06/06/2021 FINDINGS: LOWER THORAX: Bibasilar atelectasis. Small hiatal hernia HEPATOBILIARY: Subcentimeter hepatic cysts. No suspicious liver lesions.Gallbladder and biliary tree are within normal limits. SPLEEN: No splenomegaly. PANCREAS: No focal mass or ductal dilatation. ADRENALS: Unchanged left adrenal adenoma. KIDNEYS/URETERS: No hydronephrosis, stones, or solid mass. Scatteredbilateral renal cysts. Focal cortical scarring at the right upper pole. PELVIC ORGANS/BLADDER: The uterus and adnexal structures are normal.Bladder is normal. PERITONEUM / RETROPERITONEUM: No ascites or free air. No retroperitoneallymphadenopathy. VESSELS: Portal vein is patent. Abdominal aorta is normal in size. GI TRACT: Air and stool distended colon. Air-filled, mildly distendedsmall bowel. No bowel obstruction or wall thickening. Medialized cecum.Appendix not visualized. No evidence of appendicitis around the cecum. BONES AND SOFT TISSUES: Unchanged, chronic L3 superior endplatecompression fracture. Acute appearing compression fracture at thesuperior endplate of T11 resulting in approximately 20% height loss.Chronic appearing L1 compression fracture with complete height losscentrally and slight retropulsion of the posterior superior aspect of thevertebral body towards spinal canal. No significant bony spinal canalstenosis. Chronic appearing L4 vertebral body superior endplatecompression fracture with approximately 40% height loss. IMPRESSION: Air and stool distended colon with mild air distention of the small bowel.Findings suggest ileus. Acute appearing T11 superior endplate compression fracture resulting inapproximately 20% height loss. No significant retropulsion of bonetowards spinal canal or significant bony spinal canal stenosis. Chronic appearing compression fractures at L1 and L4 with near completeheight loss at L1 and slight retropulsion of the posterior superior aspectof the L1 vertebral bodies with spinal canal. No significant spinal canalstenosis. Unchanged, chronic L3 compression fracture. MRI could better assess age of compression fractures. -------- FINAL REPORT -------- Dictated By: BARI COLEMAN Dictated Date: 02/22/2025 12:58 ET Assigned Physician: BARI COLEMAN Reviewed and Electronically Signed By: BARI COLEMAN Signed Date: 02/22/2025 13:07 ET Workstation ID: [id number] Transcribed By: Self Edit Transcribed Date: 02/22/2025 12:58 ET Ulises Hurley MD IM CT PROCEDURES Final Result * (ABNORMAL) Urinalysis with reflex microscopic (02/22/2025 10:41 AM EDT) Specific [place] Urine 1.013 1.003 - 1.030 LAB URINALYSIS - AUTOMATED METHOD 02/22/2025 11:25 AM [facility] pH, Urine 6.0 5.0 - 8.0 pH LAB URINALYSIS - AUTOMATED METHOD 02/22/2025 11:25 AM [facility] Leukocytes, Urine Negative Negative LAB URINALYSIS - AUTOMATED METHOD 02/22/2025 11:25 AM [facility] Nitrite, Urine Negative Negative LAB URINALYSIS - AUTOMATED METHOD 02/22/2025 11:25 AM [facility] Protein, Urine Negative <=Trace mg/dL LAB URINALYSIS - AUTOMATED METHOD 02/22/2025 11:25 AM [facility] Glucose, Urine Negative Negative mg/dL LAB URINALYSIS - AUTOMATED METHOD 02/22/2025 11:25 AM [facility] Ketones, Urine 15(A) Negative mg/dL LAB URINALYSIS - AUTOMATED METHOD 02/22/2025 11:25 AM [facility] Urobilinogen , Urine 0.2 0.2 - 1.0 mg/dL LAB URINALYSIS - AUTOMATED METHOD 02/22/2025 11:25 AM [facility] Bilirubin, Urine Negative Negative LAB URINALYSIS - AUTOMATED METHOD 02/22/2025 11:25 AM [facility] Blood, Urine Moderate(A) Negative LAB URINALYSIS - AUTOMATED METHOD 02/22/2025 11:25 AM [facility] RBC, Urine 29.6(H) 0 - 4 /HPF LAB URINALYSIS - AUTOMATED METHOD 02/22/2025 11:25 AM [facility] WBC, Urine 1.4 0 - 4 /HPF LAB URINALYSIS - AUTOMATED METHOD 02/22/2025 11:25 AM EDT [facility] Squamous Epithelial, Urine 25 0 - 60 /LPF LAB URINALYSIS - AUTOMATED METHOD 02/22/2025 11:25 AM EDT [facility] Bacteria, Urine Negative Negative /HPF LAB URINALYSIS - AUTOMATED METHOD 02/22/2025 11:25 AM EDT [facility] Hyaline Casts, Urine 0.4 0 - 3 /LPF LAB URINALYSIS - AUTOMATED METHOD 02/22/[facility]25 [facility] U[facility] Urine specimen obtained by clean catch procedure / Unknown Non-blood Collection / Unknown 02/22/2025 10:41 AM EDT 02/22/2025 11:12 AM EDT us Ulises Hurley MD LAB URINE ORDERABLES Final Resul t [facility] [address] [place] [address], [place] [phone] * CBC auto differential (02/22/2025 10:39 AM EDT) WBC 8.3 4.8 - 10.8 K/mcL LAB HEMETOLOGY METHOD 02/22/2025 11:19 AM EDT [facility] RBC 4.30 3.80 - 4.80 M/mcL LAB HEMETOLOGY METHOD 02/22/2025 11:19 AM EDT [facility] Hemoglobin 13.0 11.5 - 16.0 g/dL LAB HEMETOLOGY METHOD 02/22/2025 11:19 AM T [facility] Hematocrit 39.0 35.0 - 47.0 % LAB HEMETOLOGY METHOD 02/22/2025 11:19 AM EDT [facility] MCV 91.5 79.0 - 98.0 FL LAB HEMETOLOGY METHOD 02/22/2025 11:19 AM [facility] MCH 30.5 27.0 - 32.0 pcg LAB HEMETOLOGY METHOD 02/22/2025 11:19 AM [facility] MCHC 33.3 32.0 - 37.0 g/dL LAB HEMETOLOGY METHOD 02/22/2025 11:19 AM [facility] RDW 12.5 11.0 - 15.0 % LAB HEMETOLOGY METHOD 02/22/2025 11:19 AM [facility] Platelets 297 130 - 400 K/mcL LAB HEMETOLOGY METHOD 02/22/2025 11:19 AM [facility] MPV 10.9 7.0 - 11.0 FL LAB HEMETOLOGY METHOD 02/22/2025 11:19 AM [facility] NRBC 0.0 <1.0 % LAB HEMETOLOGY METHOD 02/22/2025 11:19 AM [facility] NRBC Absolute 0.00 <0.10 K/mcL LAB HEMETOLOGY METHOD 02/22/2025 11:19 AM [facility] Neutrophils Relative 77.6 % LAB HEMETOLOGY METHOD 02/22/2025 11:19 AM [facility] Lymphocytes Relative 14.8 % LAB HEMETOLOGY METHOD 02/22/2025 11:19 AM [facility] Monocytes Relative 5.8 % LAB HEMETOLOGY METHOD 02/22/2025 11:19 AM [facility] Eosinophils Relative 1.1 % LAB HEMETOLOGY METHOD 02/22/2025 11:19 AM [facility] Basophils Relative 0.5 % LAB HEMETOLOGY METHOD 02/22/2025 11:19 AM [facility] Immature Granulocytes Relative 0.2 % LAB HEMETOLOGY METHOD 02/22/2025 11:19 AM EDT [facility] Neutrophils Absolute 6.40 1.50 - 7.00 K/mcL LAB HEMETOLOGY METHOD 02/22/2025 11:19 AM EDT [facility] Lymphocytes Absolute 1.22 1.00 - 5.00 K/mcL LAB HEMETOLOGY METHOD 02/22/2025 11:19 AM EDT [facility] Monocytes Absolute 0.48 0.20 - 1.00 K/[facility] LAB HEMETOLOGY METHOD 02/22/2025 11:19 AM EDT [facility] Eosinophils Absolute 0.09 0.00 - 0.50 K/[facility] LAB HEMETOLOGY METHOD 02/22/2025 11:19 AM EDT [facility] Basophils Absolute 0.04 0.00 - 0.20 K/mcL LAB HEMETOLOGY METHOD 02/22/2025 11:19 AM EDT [facility] Immature Granulocytes Absolute 0.02 0.00 - 0.03 K/[facility] HEMETOLOGY METHOD 02/22/2025 11:19 AM [facility] Blood Venous blood specimen / Unknown Venipuncture / Unknown 02/22/2025 10:39 AM EDT 02/22/2025 11:12 AM EDT Ulises Hurley MD LAB BLOOD ORDERABLES Final Resul t [facility] [address] [place] [address], * Lipase (02/22/2025 10:39 AM EDT) Lipase 19 13 - 75 unit/L LAB CHEMISTRY METHOD 02/22/2025 11:51 AM EDT [facility] Blood Venous blood specimen / Unknown Venipuncture / Unknown 02/22/2025 10:39 AM EDT 02/22/2025 11:12 AM EDT us Ulises Hurley MD LAB BLOOD ORDERABLES Final Resul t [facility] [address] [place] [address], [place] [phone] * Comprehensive metabolic panel (02/22/2025 10:39 AM EDT) Sodium 136 133 - 145 mmol/L LAB CHEMISTRY METHOD 02/22/2025 11:52 AM [facility] Potassium 4.2 3.5 - 5.5 mmol/L LAB CHEMISTRY METHOD 02/22/2025 11:52 AM [facility] Chloride 104 96 - 110 mmol/L LAB CHEMISTRY METHOD 02/22/2025 11:52 AM [facility] CO2 27 21 - 32 mmol/L LAB CHEMISTRY METHOD 02/22/2025 11:52 AM [facility] Anion Gap 5 3 - 11 LAB CHEMISTRY METHOD 02/22/2025 11:52 AM [facility] Glucose 96 70 - 100 mg/dL LAB CHEMISTRY METHOD 02/22/2025 11:52 AM [facility] BUN 13 5 - 25 mg/dL LAB CHEMISTRY METHOD 02/22/2025 11:52 AM [facility] Creatinine 0.69 0.50 - 1.10 mg/dL LAB CHEMISTRY METHOD 02/22/2025 11:52 AM [facility] eGFR 98 >=60 mL/min/1. 73m2 LAB CHEMISTRY METHOD 02/22/2025 11:52 AM [facility] Comment:Calculation based on the Chronic Kidney Disease Epidemiology Collaboration (CKD-EPI) equation refit without adjustment for race. BUN/Creatinine Ratio 18.8 LAB CHEMISTRY METHOD 02/22/2025 11:52 AM [facility] Calcium 9.7 8.5 - 10.5 mg/dL LAB CHEMISTRY METHOD 02/22/2025 11:52 AM EDT [facility] AST (SGOT) 15 10 - 42 unit/L LAB CHEMISTRY METHOD 02/22/2025 11:52 AM [facility] ALT (SGPT) 17 10 - 60 unit/L LAB CHEMISTRY METHOD 02/22/2025 11:52 AM T [facility] Alkaline Phosphatase 98 42 - 121 unit/L LAB CHEMISTRY METHOD 02/22/2025 11:52 AM EDT [facility] Total Protein 7.9 6.0 - 8.0 g/dL LAB CHEMISTRY METHOD 02/22/2025 11:52 AM [facility] Albumin 4.0 3.2 - 5.0 g/dL LAB CHEMISTRY METHOD 02/22/2025 11:52 AM [facility] Total Bilirubin 0.3 0.0 - 1.4 mg/dL LAB CHEMISTRY METHOD 02/22/2025 11:52 AM T [facility] Blood Venous blood specimen / Unknown Venipuncture / Unknown 02/22/2025 10:39 AM EDT 02/22/2025 11:12 AM EDT us Ulises Hurley MD LAB BLOOD ORDERABLES Final Resul t [facility] [address] [place] [address], from Last 3 Months Insurance MEDICAID - [place] Advance Directives * Full Code - Default (Latest Code Status on File) Date Activated Date Inactivated Comments 02/22/2025 3:44 PM 02/25/2025 8:17 PM This is orde r is used when code status has not been discussed with the patient, or code status is otherwise unknown/unconfirmed To update the patient's code status, place a code status order. Do not modify or discontinue any currently active code status orders. Care Teams Sound Controller Relationship Specialty Start Date End Date Physician, No Pcp PCP - General 02/22/25
== END 2025-03-14 11:43 | disposition home or self-care (01) ==
LOC: HO.LNP 11:42
PROVIDERS: Visit Provider Internal Medicine
DX: R14.0 Abdominal distension (gaseous) (principal)
CPT/HCPCS: 87338

== ENCOUNTER 2025-05-24 10:57 | Outpatient (REF) | payer OTHER, SELFPAY ==
--- OUTSIDE RECORDS SUMMARY | 2025-05-24 13:36 | XMS_ITS | Clinical Summary ---
Author Organization [facility] Address [address] [place] [address] Care Team Providers Care Motel Keeper Name Role Phone Anika Gamble DMD Primary Care Provider [phone] Source Comments PLEASE NOTE, if this patient [...] Done Comments Anxiety Screening 1960 HPV Screening (self-collect) 1960 HPV Screening 1961 Hepatitis C Screening [...] 2011 Imm-Zoster, Recombinant (1 of 2) 2011 Alcohol and Drug Screen 08/08/2024 Depression Annual Screen 08/08/2024 [id number]-10 ( season) 2025 021, 11/10/2020 Imm-Influenza (#1) 2025 11/15/2016 Imm-DTaP/Tdap/Td (2 - Td or Tdap) 07/11/2027 017 Diabetes Screening 02/25/2028 02/24/2025, 0 02/22/2025, 10/31/2022, Additional history exists Cervical Ablation/Cold-Knife Conization Discontinued Cervical Cryotherapy Discontinued Colposcopy Discontinued Excision/Leep Discontinued HPV Genotyping Discontinued Vaginal Pap Discontinued Vulvoscopy Discontinued Insurance [employer] [place] [address] [place] [address] [facility] Member Subscriber Plan / Payer (Ef fective 2020-Present) Name:Sunny Peera Relation to Subscriber:Self Name:Sunny Perea Payer ID:[id number] Type:Indemnity Address: [facility] [address] [place] [address] Care Teams Motel Keeper Relationship Specialty Start Date End Date Anika Gamble DMD [address] [place] [address] PCP - General 04/19/19
[2025-05-24 14:19] LABS: Albumin Level 4.8 g/dL (3.5-5.0); Calcium 9.6 mg/dL (8.4-10.2); Cholesterol 243 mg/dL (<200); HDL Cholesterol 83 mg/dL (>40); Triglycerides 120 mg/dL (<150)
[2025-05-24 18:20] LABS: Reflex LDLD? No
[2025-05-25 09:36] LABS: HBS Num1 4.01 mIU/mL (0-7.99); HBc Num1 1.44 S/CO (0.00-0.79); HBsAGNum1 0.36 S/CO (0.00-0.99); Hepatitis A Antibody IgM 0.26 Index (0-0.79); Hepatitis B Surface Antigen Negative (Negative); ~HepC Num1 0.09 S/CO (0.00-0.79); ~Hepatitis A Antibody IgM Nonreactive (Nonreactive); ~Hepatitis B Surface Antibody NONREACTIVE (Nonreactive); ~Hepatitis C Antibody Nonreactive (Nonreactive)
[2025-05-25 11:49] LABS: HBc Num2 1.44 S/CO; HBc Num3 1.43 S/CO
[2025-05-28 04:43] LABS: Hepatitis B Core Antibody IgM NON-REACTIVE (NON-REACTIVE)
== END 2025-05-24 10:58 | disposition home or self-care (01) ==
LOC: HO.HHCL 10:57
PROVIDERS: PCP Internal Medicine; Visit Provider Internal Medicine
DX: Z11.59 Encounter for screening for other viral diseases (principal); M81.0 Age-related osteoporosis without current pathological fracture; K76.9 Liver disease, unspecified; E78.00 Pure hypercholesterolemia, unspecified
CPT/HCPCS: 36415; 80061; 82040; 82310; 86704; 86705; 86706; 86709; 86803; 87340

== ENCOUNTER 2025-05-30 10:18 | Outpatient (REF) | payer OTHER, SELFPAY ==
[2025-05-30 11:26] LABS: Creatinine, mg/dL 47.56
[2025-05-30 11:38] LABS: Total Volume 24 Hour Urine 1350 mL
--- OUTSIDE RECORDS SUMMARY | 2025-05-30 12:15 | XMS_ITS | Clinical Summary ---
Author Organization [employer] Address [address] [facility] 7[address] [place] [address] Care Team Providers Care Environmental Planning Engineer Name Role Phone Isabel Dunlap MD Primary Care Provider + Allergies Active Allergy Reactions Criticality Noted Date Comments Lactose 03/03/2021 Other reaction(s): Rash, Rash Medications docusate sodium (Colace) 100 MG capsule Take 1 capsule by mouth every 12 (twelve) hours. 03/04/20 21 Active acetaminophen (Tylenol) 500 MG tablet Take 2 tablets by mouth if needed in the morning and at bedtime for mild pain. Active polyethylene glycol, PEG, 3350 (MiraLax) 17 GM/SCOOP powderIndicatio ns:Slow transit constipation Take 17 g by mouth Once per day. 527 g 2 03/13/20 25 025 Active Omeprazole 20 MG tablet delayed-release Indications:H. pylori infection Take 1 tablet (20 mg) by mouth 2 times daily for 14 days. 28 tablet 03/15/20 25 Active Menthol, Topical Analgesic, (Icy Hot) 5 % patch Use daily 14 patch 05/24/20 25 Active simethicone (Mylicon,Gas-X) 180 MG capsuleIndicati ons:Bloating Take 1 capsule (180 mg) by mouth if needed in the morning and at bedtime for flatulence. 30 capsule 2 05/24/20 25 Active montelukast (Singulair) 10 MG tablet Take 1 tablet (10 mg) by mouth Once per day. 30 tablet 2 05/24/20 25 026 Active linaCLOtide (Linzess) 145 MCG capsule Take 145 mcg by mouth before breakfast. Do not crush or chew. Active fluticasone (Flonase) 50 MCG/ACT nasal spray ADMINISTER 1 SPRAY INTO EACH NOSTRIL ONCE PER DAY. 16 mL 2 05/24/20 25 Active Diclofenac Sodium 1 % gel Apply 1 inch topically if needed in the morning and at bedtime (pain). 60 g 05/24/20 25 Active sennosides (Senokot) 8.6 MG tablet Take 1 tablet by mouth every 12 (twelve) hours. 03/04/20 21 Discontinued(T herapy completed) simethicone (Mylicon) 80 MG chewable tablet Chew every 8 (eight) hours. 03/04/20 21 Discontinued(D uplicate order (will not trigger notification to Pharmacy)) omeprazole (PriLOSEC) [address] capsule Take 1 capsule by mouth Once per day. Do not crush or chew. Discontinued(D uplicate order (will not trigger notification to Pharmacy)) simethicone (Mylicon,Gas-X) 180 MG capsuleIndicati ons:Bloating Take 1 capsule (180 mg) by mouth if needed in the morning, at noon, in the evening, and at bedtime for flatulence. 30 capsule 2 03/13/20 25 Discontinued(R eorder (will not trigger notification to Pharmacy)) fluticasone (Flonase) 50 MCG/ACT nasal spray Administer 1 spray into each nostril Once per day. 16 g 2 05/24/20 25 Discontinued Active Problems Problem Noted Date Diagnosed Date Fracture of vertebra due to osteoporosis with delayed healing 05/24/2025 Overview (05/24/2025): MRI of lumbar and T-spine on 02/2025 showed: Chronic compression fractures at L1, L3, and L4 with variable height loss most pronounced at L1. Slight retropulsion of the posterior superior aspect of L1 without significant spinal canal stenosis and lumbar spine + Acute T11 superior endplate compression fracture with approximately 30% height loss. Coagulation factors as of 133 over elevated Assessment & Plan (05/24/2025 2:45 PM EDT): Patient did not tolerate biphosphonate's due to severe GERD and did not tolerate calcium due to IBS. She needs to be on an anabolic agent due to significant risk of fracture and disability, she will follow-up with endocrinology for the PA on Evenity or alternatively on Forteo. Continue Tums + vitamin D supplementation daily and follow-up with endocrinology, follow-up with me in 3 months Thyroid nodule 05/24/2025 Assessment & Plan (05/24/2025 2:46 PM EDT): Followed by endocrinology every 6-month, FNA was benign. Sprain of right rotator cuff capsule 05/24/2025 Assessment & Plan (05/24/2025 2:47 PM EDT): Advised to apply heat to affected area or diclofenac as needed Can take Tylenol as needed and I had sent her information to do stretching exercises, otherwise she will follow-up with me for PT Ileus (CMS/HCC) 03/13/2025 Assessment & Plan (03/13/2025 12:25 PM EDT): Now resolved Slow transit constipation 02/19/2025 Assessment & Plan (05/24/2025 2:37 PM EDT): She has IBS and will see GI next month after hospitalization back on February 2025. Continue increase water and fiber intake Continue fiber rich fluids including raisins, prunes, tea, flaxseed etc. Will continue Colace daily + MiraLAX as needed constipation> 2 days. May need to go back to [facility] if symptoms do not improve. Assessment & Plan (02/19/2025 4:16 PM EDT): I advise increase water and fiber on er diet I will prescribe for patient miralaax and colace Patient will call GI office for a f/u appointment Adenoma of left adrenal gland 07/15/2022 Overview (05/24/2025): CT scan abdomen on 06/06/2021 one and follow-up on 02/2025 showed small unchanged left adrenal adenoma No need for additional follow-up Assessment & Plan (05/24/2025 2:38 PM EDT): It has been a stable on 2 CT scan of abdomen that are 2 years apart. No need for additional evaluation Asymptomatic microscopic hematuria 07/15/2022 Acute back pain with sciatica 07/15/2022 Chronic low back pain 07/15/2022 Sacral back pain 07/15/2022 Thoracic back pain 07/15/2022 Contusion of thoracic spine 07/15/2022 Dysphagia 07/15/2022 Irritable bowel syndrome with constipation 07/15 Lesion of liver 07/15/2022 Assessment & Plan (05/24/2025 2:38 PM EDT): Subcentimeter liver cysts are stable on 2 CT scans that are 2 years apart. 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 She has multiple vertebral fractures (see MRI February 2025) Assessment & Plan (05/24/2025 2:43 PM EDT): Bone density test on 12/15/2023 showed severe osteoporosis with T-score < -2.5 (- 3.7 of femur and -5.2 on spine). Evenity was not approved by insurance. Patient will have 24-hour urine and follow-up with endocrinology for the PA on Evenity. Alternatively, her insurance will cover Forteo. Will continue Tums (she does not tolerate calcium due to IBS) + vitamin D supplementation daily We had discussed regarding significant risk of fractures Compression fracture of vertebral column (CMS/HC C) 02/27/2021 Underweight 03/24/2018 Upper abdominal pain 02/15/2018 Food intolerance 02/13/2018 Glossodynia 12/28/2017 Nausea 12/28/2017 Taste sense altered 12/28/2017 Unintentional weight loss 12/28/2017 Resolved Problems Problem Noted Date Diagnosed Date Resolved Date Bloating 03/13/2025 05/24/2025 Heartburn 02/19/2025 05/24/2025 Assessment & Plan (02/19/2025 4:15 PM EDT): I advise patient to avoid NSAIDs, spicy and acid food, I advise to eat at the same time every day, I advise to elevate the head of the bed and take medications as prescribe Swollen abdomen 07/15/2022 05/24/2025 Indigestion 03/24/2018 05/24/2025 Encounters Date Type Department Care Team Description 05/29/2025 Results Follow-Up [facility] [address] [place] [phone] Isabel Dunlap MD Lipid Panel with Reflex to Direct LDL, Hepatitis Panel, General 05/24/2025 9:45 AM EDT Office Visit [facility] [address] [place] [address] [phone] Isabel Dunlap MD Pure hypercholesterolemia (Primary Dx); Age-related osteoporosis with current pathological fracture with delayed healing, subsequent encounter; Slow transit constipation; Fracture of vertebra due to osteoporosis with delayed healing; Sprain of right rotator cuff capsule, initial encounter; Thyroid nodule; Vitamin D deficiency; Adenoma of left adrenal gland; Low vision, both eyes; Lesion of liver; Bloating; Encounter for immunization; Screening mammogram for breast cancer 05/24/2025 Refill [facility] [address] [place] [address] Isabel Dunlap MD 05/24/[address] [phone] Isabel Dunlap MD Med evenity 05/24/2025 Travel 05/23/[address] [phone] Isabel Dunlap MD CHART PREP 05/15/2025 Patient Outreach [address] [address] Isabel Dunlap MD Pre-visit Planning (SDOH screening completed on 02/27/2025) 03/15/2025 Results Follow-Up [address] [address] Madison Milton MD Helicobacter pylori Antigen, EIA, Stool 03/15/2025 Orders Only [address] [address] Madison Milton MD H. pylori infection (Primary Dx) 03/13/2025 9:30 AM EDT Office Visit [address] [address] Madison Milton MD Ileus (CMS/HCC); Slow transit constipation; Irritable bowel syndrome with constipation; Bloating 03/13/2025 Travel 03/12/[address] [phone] Isabel Dunlap MD chart prep 03/07/[address] [phone] Maddy Miller, PharmD Care Coordination 02/28/2025 Patient Outreach [address] [address] Isabel Dunlap MD Care Coordination (CHW outreach for SDOH PT-1 and food needs-LVM ) 02/27/2025 Patient Outreach [address] [address] Isabel Dunlap MD Transition Of Care (Tcm) (HDF- Scheduled SDOH screening is positive) 02/27/2025 Telephone [address] [place] [address] Isabel Dunlap MD Hospital Follow-up from Last 3 Months Immunizations Immunization Administration Dates Next Due Influenza injectable quadrivalent preservative f ree 05/07/2021,11/15/2016 Influenza, IIV3, injectable 05/27/2021 Influenza, seasonal, injectable, preservative fr ee 05/24/2025 Moderna Covid-19 Vaccine 12+ 12/08/2020,11/11/19 21 Tdap [...] is your housing situation today? I have gretchen melvin 02/27/[address] you [...] Sign Reading Time Taken Comments Blood Pressure 122/74 05/24/2025 9:55 AM EDT Pulse 78 05/24/2025 9:55 AM EDT Temperature 36.3 C (97.3 F) 05/24/2025 9:55 AM EDT Respiratory Rate 25 05/24/2025 9:55 AM EDT Oxygen Saturation 97% 05/24/2025 9:55 AM EDT Inhaled Oxygen Concentration - - Weight 46.9 kg (103 lb 6.4 oz) 05/24/2025 9:55 A M EDT Height 152.4 cm (5') 05/24/2025 9:55 AM EDT Body Mass Index 20.19 05/24/2025 9:55 AM EDT Plan of Treatment Health Maintenance Due Date Last Done Comments CT Colonography 1961 FIT DNA/Cologuard 1961 FIT 1961 FOBT 1961 HIV Screening 1961 Sigmoidoscopy 1961 Hepatitis A Vaccines (1 of 2 - Risk 2-dose series) 1980 Pneumococcal Vaccine: 50+ Years (1 of 1 - PCV) 2011 Zoster Vaccines (1 of 2) 2011 Hepatitis B Vaccines (1 of 3 - Risk 3-dose series) 2021 RSV Patients and Patients Aged 60 years or older (1 - Risk 60-74 years 1-dose series) 2021 Mammogram 04/27/2023 04/27/2021, 04/09, 07/14/2017 COVID-19 Vaccine ( - season) 2025 12/08/2020, 11/10/2020 SDOH Screening 02/27/2026 02/27/2025 Alcohol/Substance Use Screening 03/13/2026 03/13/2025 Depression Screening 03/13/2026 03/13/2025, 03/13/20 25 Disability Screening 03/13/2026 03/13/2025 Cervical Cancer Screening 05/07/2026 HPV/Cotest 05/07/2026 05/07/2021 Pap Smear 05/07/2026 05/07/2021, 05/07/2021 Tobacco Screening 05/24/2026 05/24/2025 DTaP/Tdap/Td Vaccines (2 - Td or Tdap) 07/11/2027 07/11/2017 Colonoscopy 11/11/2027 11/10/2017 Colorectal Cancer Screening 11/11/2027 Hepatitis C Screening Completed 05/24/2025 Influenza Vaccine Completed 05/24/2025, , 05/07/2021, Additional history exists HIB Vaccines Aged Out No longer eligi [...] Procedure Name Priority Date/Time Associated Diagnosis Comments CREATININE, 24 HR GROUP Routine 05/30/2025 9:00 AM EDT H. pylori infection HEPATITIS B CORE ANTIBODY (IGM) Routine 05/24/2025 11:12 AM EDT H. pylori infection ALBUMIN Routine 05/24/2025 11:12 AM EDT H. pylori infection CALCIUM Routine 05/24/2025 11:12 AM EDT H. pylori infection HEPATITIS PANEL, GENERAL Routine 05/24/2025 11:12 AM EDT Lesion of liver LIPID PANEL WITH REFLEX TO DIRECT LDL Routine 05/24/2025 11:12 AM EDT Pure hypercholesterolemia HELICOBACTER PYLORI AG, EIA, STOOL Routine 03/14/2025 8:20 AM EDT Bloating HPV MRNA E6/E7 Routine 05/07/2021 9:48 AM EDT PAP/HPV Routine 05/07/2021 MAMMOGRAPHY Routine 04/27/2021 COLONOSCOPY Routine 11/10/2017 11:13 AM EDT from Last 3 Months or Most Recently Relevant to Health Maintenance Results * (ABNORMAL) CREATININE, 24 HR GROUP (05/30/2025 9:00 AM EDT) Creatinine, 24 Hour Urine 0.6(L) 1.0 - 2.0 G/Day [facility] Creatinine, Urine 47.56 [facility] Urine Total Volume 24 Hour 1,350 mL [facility] 05/30/2025 9:00 AM EDT 05/30/2025 10:47 AM EDT Narrative [facility] - 05/30/2025 11:38 AM EDT [id number] us Generic External Data Provider LAB URINE ORDERAB LES Final Result [facility] [address] [place] [phone] * (ABNORMAL) Lipid Panel with Reflex to Direct LDL (05/24/2025 11:12 AM EDT) Triglycerides 120 <150 mg/dL [facility] Comment:Desirable Triglyceri de: less than 150 mg/dLBorderline High Triglyceride 150-199 mg/dLHigh Triglyceride: 200-499 mg/dLVery High Triglyceride: greater than or equal to 5OO mg/dL Cholesterol 243(H) <200 mg/dL [facility] Comment:Desirable Cholestero l: less than 200 mg/dLBorderline High Cholesterol: 200-239 mg/dLHigh Cholesterol: greater than 239 mg/dL LDL Cholesterol Calculated 136(H) <100 mg/dL [facility] Comment:Desirable LDL: less than 100 mg/dLNear Optimal/Above Optimal LDL: 110- 129 mg/dLBorderline High LDL: 130-159 mg/dLHigh LDL: 160-189 mg/dLVery High LDL: greater than or equal to 190 mg/dL HDL Cholesterol 83 >40 mg/dL [facility] Comment:Desirable HDL: great er than 40 mg/dL Note: This HDL assay may give artificially low results in patients with liver disease. Blood 05/24/2025 11:1 2 AM EDT 05/24/2025 1:16 PM EDT Isabel Dunlap MD LAB BLOOD ORDERABLES Fin al Result Performing Organization Address [facility] de Phone Number [facility] [address] [place] [phone] * Hepatitis Panel, General (05/24/2025 11:12 AM EDT) Hepatitis A IgM Nonreactive Nonreactive [facility] Comment:IgM antibodies to GREEN V not detected; does not exclude earlyacute or recovered HAV infection. ~Hepatitis B Surface Antibody NONREACTIVE Nonreactive [facility] Comment:Nonreactive: < 8.00 mIU/mL Hepatitis B Core Antibody Reactive Nonreactive [facility] Comment:Presumptive evidence of anti-HBc. Hepatitis C Antibody Nonreactive Nonreactive [facility] Comment:Antibodies to HCV no t detected; does not exclude early acuteHCV infection. Hepatitis B Surface Ag Negative Negative [facility] Blood 05/24/2025 11:1 2 AM EDT 05/24/2025 1:16 PM EDT Isabel Dunlap MD LAB BLOOD ORDERABLES Fin al Result Performing Organization Address [facility] de Phone Number [facility] [address] [place] [phone] * Hepatitis B Core??Antibody (IgM) (05/24/2025 11:12 AM EDT) Hepatitis B Core Antibody IgM NON-REACTI VE NON-REACTI VE [facility] Comment:For additional infor ronn, please refer tohttp://education.[employer]/faq/OGA786(This link is being provided for informational/educational purposes only.)THIS TEST WAS PERFORMED AT:[employer] [place] [phone] COLLIER MD 05/24/2025 11:1 2 AM EDT 05/24/2025 1:16 PM EDT us Isabel Dunlap MD LAB BLOOD ORDERABLES Fin al Result Performing Organization Address [facility]/ZIP Co de Phone Number [facility] [address] [place] [phone] * Calcium (05/24/2025 11:12 AM EDT) Pathologist [facility] Calcium 9.6 8.4 - 10.2 mg/dL [facility] 05/24/2025 11:1 2 AM EDT 05/24/2025 1:16 PM EDT us Generic External Data Provider LAB BLOOD ORDERAB LES Final Result Performing Organization Address [facility]/ZIP Co de Phone Number [facility] [address] [place] [phone] * Albumin (05/24/2025 11:12 AM EDT) Pathologist [facility] Albumin Level 4.8 3.5 - 5.0 g/dL [facility] 05/24/2025 11:1 2 AM EDT 05/24/2025 1:16 PM EDT us Generic External Data Provider LAB BLOOD ORDERAB LES Final Result Performing Organization Address [facility] Co de Phone Number [facility] [address] [place] [phone] * (ABNORMAL) Helicobacter pylori??Antigen, EIA, Stool (03/14/2025 8:20 AM EDT) H pylori Ag Stool SEE NOTE(A) [facility] Comment:HELICOBACTER PYLORI AG, EIA, STOOL Micro Number: [id number] Test Status: Final Specimen Source: Stool Specimen Quality: Adequate H.pylori Ag: Detected Reference Range: Not DetectedTHIS TEST WAS PERFORMED AT:[employer] [address] [phone] COLLIER MD Stool Rectal contents / Unknown 03/14/2025 8:20 AM EDT 03/14/2025 11:44 AM EDT Madison Oshea MD LAB BODY FLUIDS AND S TOOLS ORDERABLES Final Result Performing Organization Address [facility] Co de Phone Number [facility] [address] [place] [phone] * HPV mRNA E6/E7 (05/07/2021 9:48 AM EDT) HPV nRNA E6/E7 Not Detected Not Detected [facility] Comment: Methodology: Solar Fabrication Technician-Mediated Amplification This assay detects E6/E7 viral messenger RNA (mRNA) from 14 high-risk HPV types (16,18,31,33,35,39,45,51,52,56,58,59,66,68). The analytical performance characteristics of this assay have been determined by [employer]. The modifications have not been cleared or approved by the FDA. This assay has been validated pursuant to the CLIA regulations and is used for clinical purposes. For additional information, please refer to http://education.[employer]/faq/JBM393z2 (This link if provided for information/ educational purposes only.) 05/07/2021 9:48 AM EDT Mari Pickett CNM LAB BLOOD ORDERABLES Ana Luisa l Result [facility] [address] * Hm Pap Smear (05/07/2021) HM Pap smear Perform Historical Provider HEALTH MAINTENANCE Final Result * Hm Mammography (04/27/2021) HM Mammogram Perform Anatomical Region Laterality Modality Other Historical Provider HEALTH MAINTENANCE Final Result * Hm Colonoscopy (11/10/2017 11:13 AM EDT) Colonoscopy Normal Normal Narrative Simin Osorio - 11/10/2017 11:13 AM EDT Recommended 10 year follow up Historical Provider HEALTH MAINTENANCE Edited Result - Final from Last 3 Months or Most Recently Relevant to Health Maintenance Insurance [facility] 3 Care Teams Environmental Planning Engineer Relationship Specialty Start Date End Date Isabel Dunlap MD [address] [place] [phone] PCP - General Family Medicine 01/09/19
--- OUTSIDE RECORDS SUMMARY | 2025-05-30 12:15 | XMS_ITS | Encounter Summary ---
Author Organization [employer] Address [address] [facility] [address]t [place] [address] Care Team Providers Care Education Sales Consultant Name Role Phone Isabel Dunlap MD Primary Care Provider + Reason for Visit * Reason Onset Date Comments Hospital Follow-up 02/27/2025 Encounter Details Date Type Department Care Team ([facility] st Contact Info) Description 02/27/2025 Telephone [facility] [address] [place], [place] [phone] Isabel Dunlap MD [address] [place], [place] [phone] Hospital Follow-up Social History Tobacco Use Types Packs/Day Years Used Date Smoking Tobacco: Never Housing Stability Answer Date Recorded What is your housing situation today? I have gretchen sing 02/27/[address] you li [...] off services in your home? No 02/27/2025 Internet Access Answer Date Recorded Internet Access Q1 Yes 02/27/2025 Internet Access Q2 Not on file 02/27/2025 Comments Unknown Sex and Gender Information Value Date Recorded Sex Assigned at Female 06/07/2022 10:30 AM EDT Legal Sex Female 10:30 AM EDT Gender Identity Female 06/07/2022 10:30 AM EDT Sexual Orientation Straight 06/07/2022 10 :30 AM EDT documented as of this encounter Miscellaneous Notes * Telephone Encounter - Jose Gonzalez - 02/27/2025 3:35 PM EDT Tc from pt requesting a HDF appt. Hospital: [facility] Date of admission: 02/22/25 Discharge date: 02/24/25 Diagnosed: Abdominal Pain documented in this encounter Plan of Treatment Not on file documented as of this encounter Visit Diagnoses Not on filedocumented in this encounter Care Teams Education Sales Consultant Relationship Specialty Start Date End Date Isabel Dunlap MD [address] [place] [phone] PCP - General Family Medicine 01/09/19 documented as of this encounter
--- OUTSIDE RECORDS SUMMARY | 2025-05-30 12:15 | XMS_ITS | Encounter Summary ---
Author Organization [employer] Address [address] [facility] [address] [place] [address] Care Team Providers Care Billboard Poster Helper Name Role Phone Isabel Dunlap MD Primary Care Provider + Encounter Details Date Type Department Care Team (Late st Contact Info) Description 05/29/2025 Results Follow-Up [facility] [address] [place], [place] [phone] Isabel Dunlap MD [address] [place], [place] [phone] Lipid Panel with Reflex to Direct LDL, Hepatitis Panel, General Social History Tobacco Use Types Packs/Day Years Used Date Smoking Tobacco: Never Passive Smoke Exposure: Never Smokeless Tobacco: Never Alcohol Use Standard Drinks/Week Comments Never 0 [...] encounter Miscellaneous Notes * Telephone Encounter - Lisandra Mujica RN - 05/30/2025 11:45 AM EDT TC placed to pt. Informed pt of boodwork results from 05/24/25 showing elevated cholesterol, advised pt. Medication is not indicated at this time however pt. Should focus on maintaining a diet low incholesterol. Advised pt. Of dietary changes and PCP will continue to monitor every 6- 12 months . Pt. Verbalizes understanding to this, informed pt. Otherwise bloodwork was normal, 24hr urine has been dropped off and has resulted as well * Result Encounter Note - Isabel Dunlap MD - 05/29/2025 5:09 PM EDT Labs on 05/24/2025 showed mild hyperlipidemia. Please call patient and discussed with her about We discussed re increased exercise and increase consumption of fruit, vegetables, fish and high fiber foods. Should decrease consumption of highly saturated fats or trans fats. No need for medications at thistime, told her that we can follow-up lipids in 6 to 12 months. Please remind her to bring the 24-hour urine collection to the lab documented in this encounter Plan of Treatment Not on file documented as of this encounter Visit Diagnoses Not on filedocumented in this encounter Additional Health Concerns Assessment Noted Time PHQ-9 Depression Total Score: 0 03/13/20 25 9:50 AM EDT documented as of this encounter Care Teams Billboard Poster Helper Relationship Specialty Start Date End Date Isabel Dunlap MD [address] [place] [phone] PCP - General Family Medicine 01/09/19 documented as of this encounter
--- OUTSIDE RECORDS SUMMARY | 2025-05-30 12:15 | XMS_ITS | Clinical Summary ---
Author Organization [facility] Address [address] [place] [address] Care Team Providers Care Junior Programmer Name Role Phone Anika Gamble DMD Primary Care Provider [phone] Source Comments PLEASE NOTE, if this patient [...] Drug Screen 08/08/2024 Depression Annual Screen 08/08/2024 [id number] ( season) 2025 021, 11/10/2020 Imm-Influenza (#1) 2025 11/15/2016 Imm-DTaP/Tdap/Td (2 - Td or Tdap) 07/11/2027 017 Diabetes Screening 02/25/2028 02/24/2025, 0 02/22/2025, 10/31/2022, Additional history exists Cervical Ablation/Cold-Knife Conization Discontinued Cervical Cryotherapy Discontinued Colposcopy Discontinued Excision/Leep Discontinued HPV Genotyping Discontinued Vaginal Pap Discontinued Vulvoscopy Discontinued Insurance [employer] [place] [address] [address] Spreaker [facility] Member Subscriber Plan / Payer (Ef fective 2020-Present) Name:Sunny Perea Relation to Subscriber:Self Name:Sunny Perea Payer ID:[id number] Type:Indemnity Address: [facility] [address] [place] [address] Care Teams Junior Programmer Relationship Specialty Start Date End Date Anika Gamble DMD [address] [place] [address] PCP - General 04/19/19
--- OUTSIDE RECORDS SUMMARY | 2025-05-30 12:15 | XMS_ITS | Encounter Summary ---
Author Organization [facility] Address [address] [facility] [address] [place] [address] Care Team Providers Care Accounts Payable Assistant Name Role Phone Isabel Dunlap MD Primary Care Provider + Encounter Details Date Type Department Care Team (Late st Contact Info) Description 01/26/2023 Abstract [facility] [address] [place], [place] [phone] Isabel Dunlap MD [address] [place], [place] [phone] Social History Tobacco Use Types Packs/Day Years [...] on filedocumented in this encounter Care Teams Accounts Payable Assistant Relationship Specialty Start Date End Date Isabel Dunlap MD [address] [place], [place] [phone] PCP - General Family Medicine 01/09/19 documented as of this encounter
--- OUTSIDE RECORDS SUMMARY | 2025-05-30 12:15 | XMS_ITS | Clinical Summary ---
Author Organization [facility] Address [address] [place] [address] Phone Care Team Providers Care Fashion Illustrator Name Role Phone Physician, No Pcp Primary [...] Problems Problem Noted Date Diagnosed Date Ileus ([facility] V24, CMS/[facility] V28) 02/22/2025 Surgical History Surgery Date Site/Laterality Comments SECTION [...] Last Done Comments Breast Cancer Screening 1961 Colorectal Cancer Screening: Colonoscopy 1961 Hepatitis A Vaccines (1 of 2 - Risk 2-dose series) 1980 Cervical Cancer Screening: P ap Smear 1982 Pneumococcal Vaccine: 50+ Years (1 of 1 - PCV) 2011 RSV Immunization Adult Patients (1 - Risk 50-74 years 1-dose series) 2011 Zoster Vaccines (1 of 2) 2011 Hepatitis B Vaccines (1 of 3 - Risk 3-dose series) 2021 Depression Screening 08/08/2024 Cholesterol Screening (Lipid Panel) 02/23/2025 HIV Screening 02/23/2025 Hepatitis C Screening 02/23/2025 Osteoporosis Screening (Bone Density Screening) 02/23/2025 Social Influencers of Health Screening 02/23/2025 COVID-19 Vaccine (3 - 2024-2 6 season) 2025 12/08/2020, 11/10/2020 Influenza Vaccine (#1) 2025 , [...] on patient's age to complete this topic Insurance [place]ICA[place] - [place] [facility] Advance Directives * Full Code - Default [...] currently active code status orders. Care Teams Fashion Illustrator Relationship Specialty Start Date End Date Physician, No Pcp PCP - General 02/22/25
[2025-06-01 17:12] LABS: Calcium/Creatinine Ratio 78 mg/g creat (30-275); Creatinine 24Hr Urine 0.68 g/24 h (0.50-2.15)
== END 2025-05-30 10:19 | disposition home or self-care (01) ==
LOC: HO.HHCL 10:18
PROVIDERS: Internal Medicine Endocrinology, Diabetes & Metabolism; PCP Internal Medicine; Visit Provider Internal Medicine
DX: M81.0 Age-related osteoporosis without current pathological fracture (principal)
CPT/HCPCS: 82340; 82570

== ENCOUNTER 2025-07-22 10:20 | Outpatient (AMB) | payer OTHER, SELFPAY ==
[2025-07-22 10:23] VITALS: BP 100/60; PULSE 62; O2SAT 96; BMI 20.4
--- NOTE | 2025-07-22 10:23 | A.OFFVIS_ITS ---
Vital Signs 07/22/25 10:23 Height 4 ft 11.69 in Weight 103 lb 9.876 oz BMI 20.4 BP 100/60 Blood Pressure Location Rt brachial Position Sitting Pulse 62 Pulse Source Pulse Oximeter Pulse Oximetry (%) 96 Oxygen Delivery Method Room Air Intake Visit Reasons: Osteoporosis. Intake Note: Patient present today for Osteoporosis follow up. Billposter Required: Yes Billposter Services: Billposter Present Billposter Name: ELIF Marroquin/BARON Accompanied by: Self / Same As Patient Allergies No Known Allergies Allergy (Verified 07/22/25 10:26) Medication List - Last Reconciled 07/22/25 by Gerard Miller MD acetaminophen (Tylenol Extra Strength) 500 mg PO Q6H PRN acetaminophen 325 mg PO QID PRN calcium citrate-vitamin D2 250 mg-2.5 mcg (100 unit) (Oskar-Citrate) 2 tabs PO BID 30 days cholecalciferol (vitamin D3) 50 mcg PO DAILY 30 days cyclobenzaprine 5 mg PO Q8H PRN 5 days lidocaine 5% (Lidoderm) 1 patch topical DAILY PRN MDD remove after 12 hours loratadine (Claritin) 10 mg PO DAILY PRN naproxen 500 mg PO BID PRN 10 days pantoprazole 20 mg PO DAILY PRN romosozumab-aqqg (Evenity) 210 mg (2.34 mL) subcut .qmonth HPI Comments Details: 65 YO Female with PMHx NTMNG and Osteoporosis who is seen in F/U Osteoporosis will also be addressed. She was previously followed by Dr. Vogt.. 2) Osteoporosis: First diagnosed in 2020 after she suffered a fall and MRI revealed a compression fracture of the spine. She had a DEXA completed which revealed severe osteoporo sis at all sties. She was started on fosamax by her PCP and used 1 dose, but was unable to tolerate this due to GI distress. No history of pathologic fracture or ONJ. Has 1-2 servings of dietary calcium per day in the form of oat milk. She is lactose intolerant. Stopped taking her Calcium supplement as it was irritating her stomach. Takes 50,000 IU twice a week Vitamin D. Uses daily PPI. Denies ever using anticoagulant, antiepileptic or glucocorticoid medication. Does weight bearing exercise 5 days per week in the form of walking for 1 hour every day.. Fracture history: Suffered a compression fracture of the spine. Height loss: Denies RELOCATION COUNSELOR history: Menarche was age 13. Menses were regular. . She breastfed for 1 year in total. Menopause was age 45. She never used HRT. Denies history of Kidney stones. Has family history of Osteoporosis and a hip fracture in her Mother. UTD on dental cleanings and sees dentist every 6 months. No planned upcoming dental work or extractions. DXA: 05/21/2021 FINDINGS: AP SPINE L1-L4: BMD 0.572 g/cm2, Z-score -3.4, T-score -5.1, osteoporosis. LEFT FEMUR, NECK: BMD 0.532 g/cm2, Z-score -2.1, T-score -3.6, osteoporosis. LEFT FEMUR, TOTAL: BMD 0.500 g/cm2, Z-score -2.7, T-score -4.0, osteoporosis. Thyroid US: 03/24/2021 Right Thyroid Lobe: 4.2 x 1.9 x 1.5 cm, volume 6.3 mL. Previously it measured 4.8 x 1.9 x 1.5 cm and volume 7.3 mL. Parenchyma: The gland echotexture is homogeneous. Thyroid vascularity is normal. Left Thyroid Lobe: 4.3 x 1.7 x 1.4 cm, volume 5.4 mL. Previously it measured 4.7 x 1.7 x 1.5 cm and volume 6.2 mL. Parenchyma: The gland echotexture is homogeneous. Thyroid vascularity is normal. Isthmus: 0.2 cm in maximum AP dimension. Estimated total number of nodules greater than or equal to 1 cm: 2. Special Weapons And Tactics Officer nodules are described as follows: 1. Location: Upper pole. Previously measured 1.1 x 0.5 x 0.6 cm and volume 0.17 mL. ?? ? Size: 1.1 x 0.6 x 0.4 cm, volume 0.15 mL. ?? ? Nodule characteristics: ?? ? Composition: Solid (2). ?? ? Echogenicity: Hypoechoic ?? ? Shape: Wider ?? ? Margins: Smooth (0). ?? ? Echogenic Foci: None (0). ?? ? ACR TI-RADS total points: 4 ?? ? ACR TI-RADS category: 4 2. Location: Right midpole. ?? ? Size: 0.4 x 0.5 x 0.3 cm, volume 0.04 mL. Previously it measured 0.4 x 0.3 x 0.5 cm and volume 0.03 mL. ?? ? Nodule characteristics: ?? ? Composition: Solid (2). ?? ? Echogenicity: Isoechoic (1). ?? ? Shape: Wider ?? ? Margins: Smooth (0). ?? ? Echogenic Foci: None (0). ?? ? ACR TI-RADS total points: 3 ?? ? ACR TI-RADS category: 3 3. Location: Right midpole. ?? ? Size: 0.4 x 0.3 x 0.3 cm, volume 0.02 mL. ?? ? Nodule characteristics: ?? ? Composition: Solid/almost completely solid (2). ?? ? Echogenicity: Isoechoic (1). ?? ? Shape: Wider ?? ? Margins: Smooth (0). ?? ? Echogenic Foci: None (0). ?? ? ACR TI-RADS total points: 3 ?? ? ACR TI-RADS category: 3 4. Location: Right lower pole. ?? ? Size: 0.4 x 0.4 x 0.3 cm, volume 0.03 mL. Previously it measured 0.5 x 0.3 x 0.3 cm and volume 0.02 mL. ?? ? Nodule characteristics: ?? ? Composition: mostly solid (2). ?? ? Echogenicity: Isoechoic (1). ?? ? Shape: Wider ?? ? Margins: Smooth (0). ?? ? Echogenic Foci: None (0). ?? ? ACR TI-RADS total points: 3 ?? ? ACR TI-RADS category: 3 There is a small nodule in the left midpole measuring 1.5 cm with total points of 3 and TI-RADS category 3. NODES: No lymphadenopathy is seen in the tissue surrounding the thyroid gland. Labs: Laboratory Tests 11/09/21 02/11/22 02/11/22 12:24 09:00 09:00 Sodium 142 Potassium 4.6 Creatinine 0.79 Estimated GFR > 60 Calcium Albumin 4.2 25-OH Vitamin D Total 23.7 TSH Free T4 PTH Intact 44 Calcium (PTH Intact) 9.8 IgA 306 Endomysial Ab Titer Endomysial IgA Ab Tiss Transglutamin IgA <1.0 Tiss Transglutamin IgG 07/10/22 10/28/22 10/28/22 09:52 14:00 14:00 Sodium 141 Potassium 4.4 Creatinine 0.75 Estimated GFR > 60 Calcium 9.7 D Albumin 4.4 25-OH Vitamin D Total 34.5 TSH 1.20 Free T4 1.15 PTH Intact 59 Calcium (PTH Intact) 7.1 L IgA Endomysial Ab Titer TNP Endomysial IgA Ab Negative Tiss Transglutamin IgA Tiss Transglutamin IgG <1.0 Secondary workup for osteoporosis was negative. Except for low calcium intake. Taking calcium citrate 500 mg BID . No fx since last visit . Repeat urinary calcium increased but still low normal. Insurance denied Evenity. 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 Vitamin D deficiency Surgical History Hx of section Family History Father Pulmonary disease Mother No known health problems Fracture of bone due to accidental fall Social History Alcohol intake: current Alcohol intake frequency: does not drink Patient Tobacco Use Status: Never used Tobacco Physical Exam Vital Signs: Last Vital Signs Pulse 62 07/22/25 10:23 BP 100/60 07/22/25 10:23 Pulse Ox 96 07/22/25 10:23 Oxygen Delivery Method Room Air 07/22/25 10:23 BMI result Body Mass Index 20.4 Assessment & Plan Assessment & Plan (1) Osteoporosis: Code(s): M81.0 - Age-related osteoporosis without current pathological fracture Category: Medical Plan: This a 64-year-old female with a history of severe osteoporosis and history of compression fracture found to have low urinary calcium suggestive of malabsorption of calcium. Patient is a very high risk for subsequent fracture . Plan is to continue the calcium supplementation to 600 mg TID and use Viactiv . . Would also consider starting anabolic therapy like Evenity considering degree of osteoporosis and previous fracture ideally with the Evenity if insurance approves but could also use another anabolic like Tymlos or Forteo pending upon insurance Medications: Refilled romosozumab-aqqg (Evenity) 210 mg (2.34 mL) subcut .qmonth 2.34 mL 11RF Coding Level of Care Code Est Pt Level 3 (55212) Diagnoses Osteoporosis M81.0
== END 2025-07-22 10:38 | disposition home or self-care (01) ==
LOC: HO.ENCR 10:20
PROVIDERS: PCP Internal Medicine; Visit Provider Internal Medicine Endocrinology, Diabetes & Metabolism
DX: M81.0 Age-related osteoporosis without current pathological fracture (principal)
CPT/HCPCS: 99213

== ENCOUNTER → 2025-07-22 10:20 | Outpatient (BNVA) | payer OTHER, SELFPAY | PROVIDERS: PCP Internal Medicine; Visit Provider Internal Medicine Endocrinology, Diabetes & Metabolism | DX: M81.0 Age-related osteoporosis without current pathological fracture (principal) | CPT/HCPCS: 99212 ==